=== PATIENT | male | born 1950 | race Caucasian/White ===

== ENCOUNTER 2020-07-31 14:15 | Outpatient (RCR) | payer MEDICARE, SELFPAY ==
[2020-05-12 11:20] VITALS: BP 130/80; PULSE 72
--- NOTE | 2020-05-12 17:55 | PT.OIE ---
Current Diagnoses Hemiplegia, unspecified affecting left nondominant side (05/12/20) Cerebral infarction due to unspecified occlusion or stenosis of right middle cerebral artery (05/12/20) Muscle weakness (generalized) (05/12/20) Abnormal posture (05/12/20) Visit Care Team Role Provider Type Lio Chacko Attending Provider Non-Staff Family Provider Primary Care Provider Referring Provider Specialty: Family Practice Address: [address] [place] [address], [facility] Email: Physical Therapy Initial Evaluation PT-OP-A Visit Information Start: 05/07/20 18:05 Freq: Status: Active Protocol: Document 05/12/20 11:20 LRN (Rec: 05/12/20 12:27 LRN [id number]) Out-Patient Physical Therapy Visit Information Visit Information Visit Type Initial Evaluation Visit Start Time 11:20 Visit Stop Time 12:16 Total Visit Minutes 56 Visit Number 1 Evaluation Information Evaluation Date 05/12/20 Precautions Precautions Possible subluxed L shoulder Recent carotid artery surgery CHF hx & Diabetes type II Arrhythmia of the heart. PT-OP-B Current Condition Start: 05/07/20 18:05 Freq: Status: Active Protocol: Document 05/12/20 11:20 LRN (Rec: 05/12/20 12:27 LRN [id number]) Current Condition History of Current Condition Onset Date 01/03/2020 History of Current Condition Pt had a surgery at [facility] ([place]) and after surgery plaque from the carotid artery broke loose causing a stroke in which he states he was totally paralyzed on the L side. He was in [facility] for 10 days and was moved to [facility] in [facility] for inpt rehab for 1 month, because his partner lives in [place]. During his stroke recovery he had rolled away from his L side, leaving the L arm behind and causing severe pain in the shoulder. Pt states he was told he subluxed the L shoulder. Now his only problem seems to be L shoulder pain, today rated 2/ 10. He is looking forward to doing outpt PT to relieve pain and strengthen up his shoulder. States at night the pain wakes him up and overall the pain is annoying and constant unless taking Tylenol , which helps to reduce his pain. He takes ASA daily and a blood thinner medication due to CHF and A Fib. Prior Treatments and Tests 1 month inpt rehab at [facility] in [place], and had a brief period of home health PT. Future Testing and Treatments Planned Cardioconversion planned in 1 month in [place]. Treatment Goals Patient/Caregiver Goals Pt goal is to strength his L shoulder, regain L arm function, and become painfree. Prior Functional Status Baseline Function- ADL's Independent Baseline Function- Mobility Independent Baseline Function- Gait Normal Baseline Function- Recreation/Hobbies Exercises and lifted free weights, walked for exercise. 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 Current Functional Impairments (Reported) Functional Limitations- ADL's Independent with ADLs. Sleeps on L side. Functional Limitations- Mobility/Gait Pt denies ambulatory dysfunction. He denies decreased balance. 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 Functional Limitations- Other Must put tops on reaching into arm holes rather than lifting arms overhead. He can only partly reach up with his L arm 1/2 way to shoulder hgt. Not able to lift, can help carry groceries. Unknown lifting limit. Personal Factors Other Personal Factors That May Effect Lives [place] with partner. Therapy/Recovery Recovering from carotid artery surgery with secondary post stroke. Diabetes type II controlled by Metformin. CHF, heart arrhythmia with planned cardioconversion in 1 month. PT-OP-C Subjective Start: 05/07/20 18:05 Freq: Status: Active Protocol: Document 05/12/20 11:20 LRN (Rec: 05/12/20 12:27 LRN [id number]) OP-PT Pain Assessment Location Around L shoulder joint Pain Location Details L shoulder Intensity 4 Scale Used Numeric (0 - 10) Description Aching,Shooting,With Movement Pain Aggravating Factors Changing Position,Exercise, Lifting Pain Alleviating Factors Cold,Heat,Medication Other Pain Alleviating Factors Tylenol taken this morning. Takes 4-6/day. Takes 2 tylenol before bed. PT-OP-H Neuro Start: 05/07/20 18:05 Freq: Status: Active Protocol: Document 05/12/20 11:20 LRN (Rec: 05/12/20 12:27 LRN [id number]) Sensation Evaluation Gross Sensation Gross Sensation WNL Vital Signs Pulse Resting Pulse at Rest (bpm) 72 Pulse Assessment Method Palpation Blood Pressure Sitting Blood Pressure (90/60-120/80 mmHg) 130/80 H Blood Pressure Source Manual Cuff,Right Upper Extremity PT-OP-J Posture/Palpation/Skin Start: 05/07/20 18:05 Freq: Status: Active Protocol: Document 05/12/20 11:20 LRN (Rec: 05/12/20 17:06 LRN [id number]) Posture Evaluation Position Standing Evaluation View All positions Head/C-Spine Posture Forward Head Shoulder Posture (L) Forward,(R) Forward Shoulder Subluxation Degree (L) < 1 Finger wide Shoulder Subluxation Position (L) Anterior Scapula Posture (L) Rotated Up Palpation Assessment Location L shoulder Palpation Location L shoulder Palpation Findings Tenderness PT-OP-K Range of Motion Start: 05/07/20 18:05 Freq: Status: Active Protocol: Document 05/12/20 11:20 LRN (Rec: 05/12/20 17:06 LRN [id number]) Cervical Spine Range of Motion Cervical Spine Active Degrees Testing Position Sitting Flexion 40 Extension 13 Rotation Left 25 Rotation Right 42 Shoulder Goniometric Range of Motion Shoulder Right Passive Shoulder ROM WFL Yes Flexion 155 Abduction 180 External Rotation at 45 degrees 85 Abduction Internal Rotation 40 Left Passive Shoulder ROM WFL No Flexion 77 Abduction 65 External Rotation at 45 degrees 20 Abduction Internal Rotation 22 Right Active Shoulder ROM WFL Yes Testing Position Sitting Flexion 145 Extension 48 Abduction 180 Left Active Shoulder ROM WFL No Testing Position Sitting Flexion 60 Extension 35 Abduction 45 PT-OP-M Strength Start: 05/07/20 18:05 Freq: Status: Active Protocol: Document 05/12/20 11:20 LRN (Rec: 05/12/20 17:06 LRN [id number]) Shoulder Strength Shoulder Manual Muscle Testing Right Comments Flex, AB, ER, IR strength is 5 /5. Left Flexion 2 Poor Extension 2+ Poor+ Abduction (C5) 2- Poor- External Rotation 2- Poor- Internal Rotation 2 Poor PT-OP-Q Treatments Start: 05/07/20 18:05 Freq: Status: Active Protocol: Document 05/12/20 11:20 LRN (Rec: 05/12/20 12:27 LRN [id number]) Self-Care/Home Management Treatment Education Patient Education Home Exercise Program Activities Self-Care/Home Management Activities I/S pt and had pt perform ex: active ER/IR stretch w/ instructions to hold 60 sec's. Extra time was taken to train pt in tolerable stretch for 60 secs. PT-OP-T Assessment and Plan Start: 05/07/20 18:05 Freq: Status: Active Protocol: Document 05/12/20 11:20 LRN (Rec: 05/12/20 12:27 LRN [id number]) Physical Therapy Assessment Rehab Potential Rehabilitation Potential Good Evaluation Complexity Number of Personal Factors/Comorbidities 1-2 Number of Body Systems Impaired 4 or More Clinical Presentation at Evaluation Evolving Impairments Impairments Functional Mobility,Pain,ROM, Soft Tissue Mobility,Strength, Transfers Goals Four Impairment L shoulder pain that is constant, rated 4/10 Short Term Goal (STG) Pt will be educated in methods to reduce his sleeping on his L shoulder, and will reduce the need for Tylenol on a daily basis. STG Duration 06/23/20 Retirement Goal (LTG) Decrease L shoulder pain to no greater than 1/10 with ability to sleep at night without the use of medications . LTG Duration 09/09/20 Three Impairment Decreased L shoulder strength Short Term Goal (STG) Pt will be able to report increased use of his L arm with tolerable discomfort. STG Duration 06/23/20 Retirement Goal (LTG) Improve L shoulder strength to no less than 4/5 with pt able to move around in bed without difficulty and mild pain that will not hinder his sleep. LTG Duration 09/09/20 One Impairment Lacks appropriate self care HEP Retirement Goal (LTG) Pt will be independent in a self care HEP for PF strengthening. LTG Duration 09/09/20 Two Impairment Decreased L shoulder mobility Short Term Goal (STG) Pt will be able to lift his arm to shoulder hgt to improve ability for dressing. STG Duration 06/23/20 Retirement Goal (LTG) Pt will be able to lift his L arm overhead for ease of putting his shirts on. LTG Duration 09/09/20 Assessment Summary Assessment Pt presents with L shoulder pain due to a mechanical and soft tissue dysfunction of the L Glenohumeral joint and Scapulothoracic joint. He has some visible Deltoid muscle tone, but has a subluxed humeral head 1 finger width. He has signs and symptoms of a L frozen shoulder with chronic pain diffusely in the L shoulder joint. Soft tissue tightness of his Upper Trapezius, Supraspinatus and Anterior Scalenes refers pain to the L shoulder. His BP was elevated at 130/80, but HR was normal at 72 bpm. It is expected that progress will be slow due to dysfunctions associated with his recent neck surgery and subluxed shoulder adding to the weakness from his stroke. The pt will benefit from skilled physical therapy to improve L shoulder mobility, strength and function as well as improve his scapular stabilizers and neck mobility. Physical Therapy Plan Frequency and Duration Frequency of Treatment 2x/Week Plan of Care Start Date 05/12/20 Plan of Care End Date 09/09/20 Therapeutic Interventions Therapeutic Interventions Home Exercise Program,Manual Therapy,Neuromuscular Re- education,Patient/Caregiver Education,Self-Care/Home Management,Soft Tissue Mobilization,Taping, Therapeutic Exercises Modalities Cold Pack/Ice Massage,Electric Stimulation Next Visit Focus/Plan Next Note Type Treatment Note Next Visit Plan Check Apley Test and DTRs. Monitor as needed, cardiovascular signs. Initiate L shoulder ROM & strengthening ex's with HEP issued, include scapular stabilizing ex's (shoulder retraction, depression). End with heat or ice unless pt chooses to do at home.
--- NOTE | 2020-05-12 17:56 | PT.OPPOC ---
Physical, Occupational & Speech Therapy At [facility] Current Diagnoses Hemiplegia, unspecified affecting left nondominant side (05/12/20) Cerebral infarction due to unspecified occlusion or stenosis of right middle cerebral artery (05/12/20) Muscle weakness (generalized) (05/12/20) Abnormal posture (05/12/20) Visit Care Team Role Provider Type Lio Chacko Attending Provider Non-Staff Family Provider Primary Care Provider Referring Provider Specialty: [facility] Address: [address] [place] [address] Email: Plan Of Care PT-OP-T Assessment and Plan Start: 05/07/20 18:05 Freq: Status: Active Protocol: Document 05/12/20 11:20 LRN (Rec: 05/12/20 12:27 LRN [id number]) Physical Therapy Assessment Rehab Potential Rehabilitation Potential Good Evaluation Complexity Number of Personal Factors/Comorbidities 1-2 Number of Body Systems Impaired 4 or More Clinical Presentation at Evaluation Evolving Impairments Impairments Functional Mobility,Pain,ROM, Soft Tissue Mobility,Strength, Transfers Goals Four Impairment L shoulder pain that is constant, rated 4/10 Short Term Goal (STG) Pt will be educated in methods to reduce his sleeping on his L shoulder, and will reduce the need for Tylenol on a daily basis. STG Duration 06/23/20 Senior Care Goal (LTG) Decrease L shoulder pain to no greater than 1/10 with ability to sleep at night without the use of medications . LTG Duration 09/09/20 Three Impairment Decreased L shoulder strength Short Term Goal (STG) Pt will be able to report increased use of his L arm with tolerable discomfort. STG Duration 06/23/20 Senior Care Goal (LTG) Improve L shoulder strength to no less than 4/5 with pt able to move around in bed without difficulty and mild pain that will not hinder his sleep. LTG Duration 09/09/20 One Impairment Lacks appropriate self care HEP Senior Care Goal (LTG) Pt will be independent in a self care HEP for PF strengthening. LTG Duration 09/09/20 Two Impairment Decreased L shoulder mobility Short Term Goal (STG) Pt will be able to lift his arm to shoulder hgt to improve ability for dressing. STG Duration 06/23/20 Associate Director Of Sales Goal (LTG) Pt will be able to lift his L arm overhead for ease of putting his shirts on. LTG Duration 09/09/20 Assessment Summary Assessment Pt presents with L shoulder pain due to a mechanical and soft tissue dysfunction of the L Glenohumeral joint and Scapulothoracic joint. He has some visible Deltoid muscle tone, but has a subluxed humeral head 1 finger width. He has signs and symptoms of a L frozen shoulder with chronic pain diffusely in the L shoulder joint. Soft tissue tightness of his Upper Trapezius, Supraspinatus and Anterior Scalenes refers pain to the L shoulder. His BP was elevated at 130/80, but HR was normal at 72 bpm. It is expected that progress will be slow due to dysfunctions associated with his recent neck surgery and subluxed shoulder adding to the weakness from his stroke. The pt will benefit from skilled physical therapy to improve L shoulder mobility, strength and function as well as improve his scapular stabilizers and neck mobility. Physical Therapy Plan Frequency and Duration Frequency of Treatment 2x/Week Plan of Care Start Date 05/12/20 Plan of Care End Date 09/09/20 Therapeutic Interventions Therapeutic Interventions Home Exercise Program,Manual Therapy,Neuromuscular Re- education,Patient/Caregiver Education,Self-Care/Home Management,Soft Tissue Mobilization,Taping, Therapeutic Exercises Modalities Cold Pack/Ice Massage,Electric Stimulation Next Visit Focus/Plan Next Note Type Treatment Note Next Visit Plan Check Apley Test and DTRs. Monitor as needed, cardiovascular signs. Initiate L shoulder ROM & strengthening ex's with HEP issued, include scapular stabilizing ex's (shoulder retraction, depression). End with heat or ice unless pt chooses to do at home. Plan of Care Dates Plan of Care Start Date 05/12/20 Plan of Care End Date 09/09/20 Electronically Signed by: Roberta Anne, PT 05/12/20 5033 Please Sign and Return: I have reviewed this Plan of Care and certify that the skilled therapy services above are required to meet the patient?s needs. Physician Signature Date Printed Name and Credentials Clinical Instructor Signature Printed Name and Credentials
--- NOTE | 2020-05-19 12:07 | PT.OTN ---
Current Diagnoses Hemiplegia, unspecified affecting left nondominant side (05/19/20) Cerebral infarction due to unspecified occlusion or stenosis of right middle cerebral artery (05/19/20) Muscle weakness (generalized) (05/19/20) Abnormal posture (05/19/20) Physical Therapy Treatment Note PT-OP-A Visit Information Start: 05/07/20 18:05 Freq: Status: Active Protocol: Document 05/19/20 10:34 LRN (Rec: 05/19/20 12:05 LRN [id number]) Out-Patient Physical Therapy Visit Information Visit Information Visit Type Treatment Note Visit Start Time 10:34 Visit Stop Time 11:24 Total Visit Minutes 50 Visit Number 2 Evaluation Information Evaluation Date 05/12/20 Precautions Precautions Possible subluxed L shoulder Recent carotid artery surgery CHF hx & Diabetes type II Arrhythmia of the heart. PT-OP-B Current Condition Start: 05/07/20 18:05 Freq: Status: Active Protocol: Document 05/12/20 11:20 LRN (Rec: 05/12/20 12:27 LRN [id number]) Current Condition History of Current Condition Onset Date 01/03/2020 History of Current Condition Pt had a surgery at [facility] ([place]) and after surgery plaque from the carotid artery broke loose causing a stroke in which he states he was totally paralyzed on the L side. He was in [facility] for 10 days and was moved to [facility] in [facility] for inpt rehab for 1 month, because his partner lives in [place]. During his stroke recovery he had rolled away from his L side, leaving the L arm behind and causing severe pain in the shoulder. Pt states he was told he subluxed the L shoulder. Now his only problem seems to be L shoulder pain, today rated 2/ 10. He is looking forward to doing outpt PT to relieve pain and strengthen up his shoulder. States at night the pain wakes him up and overall the pain is annoying and constant unless taking Tylenol , which helps to reduce his pain. He takes ASA daily and a blood thinner medication due to CHF and A Fib. Prior Treatments and Tests 1 month inpt rehab at [facility] in [place], and had a brief period of home health PT. Future Testing and Treatments Planned Cardioconversion planned in 1 month in [place]. Treatment Goals Patient/Caregiver Goals Pt goal is to strength his L shoulder, regain L arm function, and become painfree. Prior Functional Status Baseline Function- ADL's Independent Baseline Function- Mobility Independent Baseline Function- Gait Normal Baseline Function- Recreation/Hobbies Exercises and lifted free weights, walked for exercise. 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 Current Functional Impairments (Reported) Functional Limitations- ADL's Independent with ADLs. Sleeps on L side. Functional Limitations- Mobility/Gait Pt denies ambulatory dysfunction. He denies decreased balance. 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 Functional Limitations- Other Must put tops on reaching into arm holes rather than lifting arms overhead. He can only partly reach up with his L arm 1/2 way to shoulder hgt. Not able to lift, can help carry groceries. Unknown lifting limit. Personal Factors Other Personal Factors That May Effect Lives [place] with partner. Therapy/Recovery Recovering from carotid artery surgery with secondary post stroke. Diabetes type II controlled by Metformin. CHF, heart arrhythmia with planned cardioconversion in 1 month. PT-OP-C Subjective Start: 05/07/20 18:05 Freq: Status: Active Protocol: Document 05/19/20 10:34 LRN (Rec: 05/19/20 12:05 LRN [id number]) OP-PT Subjective Patient Comments Patient Comments Pt brings in his HEP of LE strengthening and balance exercises. States he would like to have them reviewed for appropriateness. PT-OP-E Functional Tests Start: 05/07/20 18:05 Freq: Status: Active Protocol: Document 05/19/20 10:34 LRN (Rec: 05/19/20 12:05 LRN [id number]) Functional Tests Apley's Scratch Test Action 2- Left Tip of finger to middle back of head Action 2- Right T2 Spinous process Action 3- Left Inferior Lateral Border of Sacrum Action 3- Right L1 Spinous process PT-OP-H Neuro Start: 05/07/20 18:05 Freq: Status: Active Protocol: Document 05/12/20 11:20 LRN (Rec: 05/12/20 12:27 LRN [id number]) Sensation Evaluation Gross Sensation Gross Sensation WNL Vital Signs Pulse Resting Pulse at Rest (bpm) 72 Pulse Assessment Method Palpation Blood Pressure Sitting Blood Pressure (90/60-120/80 mmHg) 130/80 H Blood Pressure Source Manual Cuff,Right Upper Extremity PT-OP-J Posture/Palpation/Skin Start: 05/07/20 18:05 Freq: Status: Active Protocol: Document 05/12/20 11:20 LRN (Rec: 05/12/20 17:06 LRN [id number]) Posture Evaluation Position Standing Evaluation View All positions Head/C-Spine Posture Forward Head Shoulder Posture (L) Forward,(R) Forward Shoulder Subluxation Degree (L) < 1 Finger wide Shoulder Subluxation Position (L) Anterior Scapula Posture (L) Rotated Up Palpation Assessment Location L shoulder Palpation Location L shoulder Palpation Findings Tenderness PT-OP-K Range of Motion Start: 05/07/20 18:05 Freq: Status: Active Protocol: Document 05/19/20 10:34 LRN (Rec: 05/19/20 12:05 LRN [id number]) Shoulder Goniometric Range of Motion Shoulder Right Passive Shoulder ROM WFL Yes Testing Position Supine Flexion 155 Abduction 180 External Rotation at 45 degrees 85 Abduction Internal Rotation 40 Left Passive Shoulder ROM WFL No Testing Position Supine Flexion 90 Abduction 70 External Rotation at 45 degrees 30 Abduction Internal Rotation 40 PT-OP-M Strength Start: 05/07/20 18:05 Freq: Status: Active Protocol: Document 05/12/20 11:20 LRN (Rec: 05/12/20 17:06 LRN [id number]) Shoulder Strength Shoulder Manual Muscle Testing Right Comments Flex, AB, ER, IR strength is 5 /5. Left Flexion 2 Poor Extension 2+ Poor+ Abduction (C5) 2- Poor- External Rotation 2- Poor- Internal Rotation 2 Poor PT-OP-Q Treatments Start: 05/07/20 18:05 Freq: Status: Active Protocol: Document 05/19/20 10:34 LRN (Rec: 05/19/20 12:05 LRN [id number]) Therapeutic Exercises Supine Exercises PROM L shoulder Supine Exercise Name PROM L shoulder Comments ROM measurements taken Shoulder AB Supine Exercise Name Shoulder AB Side left Reps/Minutes 5' Comments Phys and v. cuing with determining tolerable stretch position and hold time Yudi EXt Supine Exercise Name Yudi Ext. Side left Reps/Minutes 4' Comments Phys and v. cuing and teaching hold time Chest press Supine Exercise Name Chest press w/R arm assts Side left Reps/Minutes 4' Comments Had to determine movement speed and range tolerance Shoulder ER/IR Supine Exercise Name Windshield wipe arm at ~45 & 50 deg's Side left Reps/Minutes 5' Comments Had to determine ROM tolerance and trng for stretch/speed of mvmt. Scap pinches Supine Exercise Name Scap pinches Side bilateral Reps/Minutes 3' Comments Phys and v. cuing and teaching hold time and positioning Self-Care/Home Management Treatment Education Patient Education Home Exercise Program Other Education Reviewed pt's current HEP and discussed pt LE strengthening and balance program for future PT for balance. Activities Self-Care/Home Management Activities Issued & discussed/reviewed HEP: Supine: Chest press, windshield wip stretch, Shoulder AB w/cane, Scap pinches, Yudi shoulder Ext with elbow bent and elbow straight. Held itting ER and flex stretch. PT-OP-T Assessment and Plan Start: 05/07/20 18:05 Freq: Status: Active Protocol: Document 05/19/20 10:34 LRN (Rec: 05/19/20 12:05 LRN [id number]) Physical Therapy Assessment Goals Four Impairment L shoulder pain that is constant, rated 4/10 Short Term Goal (STG) Pt will be educated in methods to reduce his sleeping on his L shoulder, and will reduce the need for Tylenol on a daily basis. STG Duration 06/23/20 Alf Goal (LTG) Decrease L shoulder pain to no greater than 1/10 with ability to sleep at night without the use of medications . LTG Duration 09/09/20 Three Impairment Decreased L shoulder strength Short Term Goal (STG) Pt will be able to report increased use of his L arm with tolerable discomfort. STG Duration 06/23/20 Alf Goal (LTG) Improve L shoulder strength to no less than 4/5 with pt able to move around in bed without difficulty and mild pain that will not hinder his sleep. LTG Duration 09/09/20 One Impairment Lacks appropriate self care HEP Lens Mold Setter Goal (LTG) Pt will be independent in a self care HEP for PF strengthening. LTG Duration 09/09/20 Two Impairment Decreased L shoulder mobility Short Term Goal (STG) Pt will be able to lift his arm to shoulder hgt to improve ability for dressing. STG Duration 9/29/20 Lens Mold Setter Goal (LTG) Pt will be able to lift his L arm overhead for ease of putting his shirts on. LTG Duration 09/09/20 Progress Towards Goals Progress Comments Pt shoulder felt better after treatment. Pt's L shoulder PROM (in supine) has improved with in all areas 5-18 deg's (see ROM measurements) Assessment Summary Assessment Pt show improved L shoulder PROM. His shoulder is feeling better with ROM and strengthening ex's to lessen his frozen shoulder symptoms and decrease his pain from a subluxed shoulder. Physical Therapy Plan Frequency and Duration Frequency of Treatment 2x/Week Plan of Care Start Date 05/12/20 Plan of Care End Date 09/09/20 Next Visit Focus/Plan Next Note Type Treatment Note Next Visit Plan Check DTRs. Monitor as needed , cardiovascular signs (for elevated BP). Progress L shoulder ROM (add sitting shoulder flex/ER PROM) & strengthening ex's with HEP issued, include scapular stabilizing ex's (shoulder depression). End with heat or ice unless pt chooses to do at home.
--- NOTE | 2020-05-22 16:17 | PT.OTN ---
Current Diagnoses Hemiplegia, unspecified affecting left nondominant side (05/22/20) Cerebral infarction due to unspecified occlusion or stenosis of right middle cerebral artery (05/22/20) Muscle weakness (generalized) (05/22/20) Abnormal posture (05/22/20) Physical Therapy Treatment Note PT-OP-A Visit Information Start: 05/07/20 18:05 Freq: Status: Active Protocol: Document 05/22/20 13:37 LRN (Rec: 05/22/20 14:21 LRN [id number]) Out-Patient Physical Therapy Visit Information Visit Information Visit Type Treatment Note Visit Start Time 13:37 Visit Stop Time 14:17 Total Visit Minutes 40 Visit Number 3 Evaluation Information Evaluation Date 05/12/20 Precautions Precautions Possible subluxed L shoulder Recent carotid artery surgery CHF hx & Diabetes type II Arrhythmia of the heart. PT-OP-B Current Condition Start: 05/07/20 18:05 Freq: Status: Active Protocol: Document 05/12/20 11:20 LRN (Rec: 05/12/20 12:27 LRN [id number]) Current Condition History of Current Condition Onset Date 01/03/2020 History of Current Condition Pt had a surgery at [facility] ([place]) and after surgery plaque from the carotid artery broke loose causing a stroke in which he states he was totally paralyzed on the L side. He was in [facility] for 10 days and was moved to [facility] in [facility] for inpt rehab for 1 month, because his partner lives in [place]. During his stroke recovery he had rolled away from his L side, leaving the L arm behind and causing severe pain in the shoulder. Pt states he was told he subluxed the L shoulder. Now his only problem seems to be L shoulder pain, today rated 2/ 10. He is looking forward to doing outpt PT to relieve pain and strengthen up his shoulder. States at night the pain wakes him up and overall the pain is annoying and constant unless taking Tylenol , which helps to reduce his pain. He takes ASA daily and a blood thinner medication due to CHF and A Fib. Prior Treatments and Tests 1 month inpt rehab at [facility] in [place], and had a brief period of home health PT. Future Testing and Treatments Planned Cardioconversion planned in 1 month in [place]. Treatment Goals Patient/Caregiver Goals Pt goal is to strength his L shoulder, regain L arm function, and become painfree. Prior Functional Status Baseline Function- ADL's Independent Baseline Function- Mobility Independent Baseline Function- Gait Normal Baseline Function- Recreation/Hobbies Exercises and lifted free weights, walked for exercise. 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 Current Functional Impairments (Reported) Functional Limitations- ADL's Independent with ADLs. Sleeps on L side. Functional Limitations- Mobility/Gait Pt denies ambulatory dysfunction. He denies decreased balance. 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 Functional Limitations- Other Must put tops on reaching into arm holes rather than lifting arms overhead. He can only partly reach up with his L arm 1/2 way to shoulder hgt. Not able to lift, can help carry groceries. Unknown lifting limit. Personal Factors Other Personal Factors That May Effect Lives [place] with partner. Therapy/Recovery Recovering from carotid artery surgery with secondary post stroke. Diabetes type II controlled by Metformin. CHF, heart arrhythmia with planned cardioconversion in 1 month. PT-OP-C Subjective Start: 05/07/20 18:05 Freq: Status: Active Protocol: Document 05/22/20 13:37 LRN (Rec: 05/22/20 14:21 LRN [id number]) OP-PT Subjective Patient Comments Patient Comments Tired today. PT-OP-E Functional Tests Start: 05/07/20 18:05 Freq: Status: Active Protocol: Document 05/19/20 10:34 LRN (Rec: 05/19/20 12:05 LRN [id number]) Functional Tests Apley's Scratch Test Action 2- Left Tip of finger to middle back of head Action 2- Right T2 Spinous process Action 3- Left Inferior Lateral Border of Sacrum Action 3- Right L1 Spinous process PT-OP-H Neuro Start: 05/07/20 18:05 Freq: Status: Active Protocol: Document 05/12/20 11:20 LRN (Rec: 05/12/20 12:27 LRN [id number]) Sensation Evaluation Gross Sensation Gross Sensation WNL Vital Signs Pulse Resting Pulse at Rest (bpm) 72 Pulse Assessment Method Palpation Blood Pressure Sitting Blood Pressure (90/60-120/80 mmHg) 130/80 H Blood Pressure Source Manual Cuff,Right Upper Extremity PT-OP-J Posture/Palpation/Skin Start: 05/07/20 18:05 Freq: Status: Active Protocol: Document 05/12/20 11:20 LRN (Rec: 05/12/20 17:06 LRN [id number]) Posture Evaluation Position Standing Evaluation View All positions Head/C-Spine Posture Forward Head Shoulder Posture (L) Forward,(R) Forward Shoulder Subluxation Degree (L) < 1 Finger wide Shoulder Subluxation Position (L) Anterior Scapula Posture (L) Rotated Up Palpation Assessment Location L shoulder Palpation Location L shoulder Palpation Findings Tenderness PT-OP-K Range of Motion Start: 05/07/20 18:05 Freq: Status: Active Protocol: Document 05/22/20 13:37 LRN (Rec: 05/22/20 14:21 LRN [id number]) Shoulder Goniometric Range of Motion Shoulder Left Passive Shoulder ROM WFL No Testing Position Supine Flexion 108 Abduction 65 External Rotation at 45 degrees 40 Abduction Internal Rotation 38 PT-OP-M Strength Start: 05/07/20 18:05 Freq: Status: Active Protocol: Document 05/12/20 11:20 LRN (Rec: 05/12/20 17:06 LRN [id number]) Shoulder Strength Shoulder Manual Muscle Testing Right Comments Flex, AB, ER, IR strength is 5 /5. Left Flexion 2 Poor Extension 2+ Poor+ Abduction (C5) 2- Poor- External Rotation 2- Poor- Internal Rotation 2 Poor PT-OP-Q Treatments Start: 05/07/20 18:05 Freq: Status: Active Protocol: Document 05/22/20 13:37 LRN (Rec: 05/22/20 14:21 LRN [id number]) Cardio Equipment Upper Body Ergometer (UBE) Duration (Minutes) 6 RPM 90 Seat Position 12 Height 3 Other Pt needed phys assist to L wrist/hand for normalized movement Therapeutic Exercises Supine Exercises Shoulder IR Supine Exercise Name Shoulder IR stretch Side left Reps/Minutes 2' Comments ROM measured PROM L shoulder Supine Exercise Name PROM ER, flex w/cane Side left Comments ROM measured Shoulder AB Supine Exercise Name Shoulder AB Side left Reps/Minutes 5' Comments Phys and v. cuing with determining tolerable stretch position and hold time Chest press Supine Exercise Name Chest press w/R arm assts Side left Reps/Minutes 4' (10x 3) Comments No pain with ex Shoulder ER/IR Supine Exercise Name Burke wipe arm at ~45 & 50 deg's Side left Reps/Minutes 5' Comments Had to determine ROM tolerance & trng for stretch/speed of mvmt. ROM taken Scap pinches Supine Exercise Name Scap pinches/rolls Side bilateral Reps/Minutes 3' Comments Phys and v. cuing and teaching hold time and positioning Sidelying Exercises Jordan Sidelying Exercise Name ERROR Side left Sitting Exercises Jordan Sitting Exercise Name Assist L shoulder flex & AB Side left Comments Avoiding pushing into pain, making sure pt using L shdr ms to lift Self-Care/Home Management Treatment Education Patient Education Home Exercise Program Activities Self-Care/Home Management Activities Verbal review of home ex program. I/S pt to do strengthening ex as warm up, f /b stretching, for now. PT-OP-T Assessment and Plan Start: 05/07/20 18:05 Freq: Status: Active Protocol: Document 05/22/20 13:37 LRN (Rec: 05/22/20 14:21 LRN [id number]) Physical Therapy Assessment Goals Four Impairment L shoulder pain that is constant, rated 4/10 Short Term Goal (STG) Pt will be educated in methods to reduce his sleeping on his L shoulder, and will reduce the need for Tylenol on a daily basis. STG Duration 06/23/20 Mcc Goal (LTG) Decrease L shoulder pain to no greater than 1/10 with ability to sleep at night without the use of medications . LTG Duration 09/09/20 Three Impairment Decreased L shoulder strength Short Term Goal (STG) Pt will be able to report increased use of his L arm with tolerable discomfort. STG Duration 06/23/20 Automatic Machines Supervisor Goal (LTG) Improve L shoulder strength to no less than 4/5 with pt able to move around in bed without difficulty and mild pain that will not hinder his sleep. LTG Duration 09/09/20 One Impairment Lacks appropriate self care HEP [employer] Supervisor Goal (LTG) Pt will be independent in a self care HEP for PF strengthening. LTG Duration 09/09/20 Two Impairment Decreased L shoulder mobility Short Term Goal (STG) Pt will be able to lift his arm to shoulder hgt to improve ability for dressing. STG Duration 06/23/20 Automatic Mach[employer] Supervisor Goal (LTG) Pt will be able to lift his L arm overhead for ease of putting his shirts on. LTG Duration 09/09/20 Progress Towards Goals Progress Comments PROM: L shoulder flex improved from 90 to 108 deg's. ER (at 45 deg's AB) improved from 30 to 40 deg's. Shoulder AB & IR is mildly worse. Assessment Summary Assessment On UBE reverse direction is painfree at R shoulder, fwd is uncomfortable at the R shoulder, otherwise pt tolerated ex well. L shoulder PROM improved. Pt prefers doing cryotherapy at home. Physical Therapy Plan Frequency and Duration Frequency of Treatment 2x/Week Plan of Care Start Date 05/12/20 Plan of Care End Date 09/09/20 Next Visit Focus/Plan Next Note Type Treatment Note Next Visit Plan Check DTRs. Check BP before and after UBE. Monitor as needed cardiovascular signs ( for elevated BP). Progress L shoulder ROM (add sitting shoulder flex/ER PROM) & strengthening ex's with HEP issued, include scapular stabilizing ex's (shoulder depression). End with heat or ice as pt needs since pt prefers to do at home.
--- NOTE | 2020-05-25 16:20 | PT.OTN ---
Current Diagnoses Hemiplegia, unspecified affecting left nondominant side (05/25/20) Cerebral infarction due to unspecified occlusion or stenosis of right middle cerebral artery (05/25/20) Muscle weakness (generalized) (05/25/20) Abnormal posture (05/25/20) Physical Therapy Treatment Note PT-OP-A Visit Information Start: 05/07/20 18:05 Freq: Status: Active Protocol: Document 05/25/20 14:03 HH (Rec: 05/25/20 16:19 HH [id number]) Out-Patient Physical Therapy Visit Information Visit Information Visit Type Treatment Note Visit Note pt is 10 mins late Visit Start Time 13:55 Visit Stop Time 14:30 Total Visit Minutes 32 Visit Number 4 PT-OP-B Current Condition Start: 05/07/20 18:05 Freq: Status: Active Protocol: Document 05/12/20 11:20 LRN (Rec: 05/12/20 12:27 LRN [id number]) Current Condition History of Current Condition Onset Date 01/03/2020 History of Current Condition Pt had a surgery at [facility] ([place]) and after surgery plaque from the carotid artery broke loose causing a stroke in which he states he was totally paralyzed on the L side. He was in [facility] for 10 days and was moved to [facility] in [facility] for inpt rehab for 1 month, because his partner lives in [place]. During his stroke recovery he had rolled away from his L side, leaving the L arm behind and causing severe pain in the shoulder. Pt states he was told he subluxed the L shoulder. Now his only problem seems to be L shoulder pain, today rated 2/ 10. He is looking forward to doing outpt PT to relieve pain and strengthen up his shoulder. States at night the pain wakes him up and overall the pain is annoying and constant unless taking Tylenol , which helps to reduce his pain. He takes ASA daily and a blood thinner medication due to CHF and A Fib. Prior Treatments and Tests 1 month inpt rehab at [facility] in [place], and had a brief period of home health PT. Future Testing and Treatments Planned Cardioconversion planned in 1 month in [place]. Treatment Goals Patient/Caregiver Goals Pt goal is to strength his L shoulder, regain L arm function, and become painfree. Prior Functional Status Baseline Function- ADL's Independent Baseline Function- Mobility Independent Baseline Function- Gait Normal Baseline Function- Recreation/Hobbies Exercises and lifted free weights, walked for exercise. 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 Current Functional Impairments (Reported) Functional Limitations- ADL's Independent with ADLs. Sleeps on L side. Functional Limitations- Mobility/Gait Pt denies ambulatory dysfunction. He denies decreased balance. 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 Functional Limitations- Other Must put tops on reaching into arm holes rather than lifting arms overhead. He can only partly reach up with his L arm 1/2 way to shoulder hgt. Not able to lift, can help carry groceries. Unknown lifting limit. Personal Factors Other Personal Factors That May Effect Lives [place] with partner. Therapy/Recovery Recovering from carotid artery surgery with secondary post stroke. Diabetes type II controlled by Metformin. CHF, heart arrhythmia with planned cardioconversion in 1 month. PT-OP-C Subjective Start: 05/07/20 18:05 Freq: Status: Active Protocol: Document 05/25/20 14:03 HH (Rec: 05/25/20 16:19 [id number]) OP-PT Subjective Patient Comments Patient Comments Im getting better and i was able to wash my hair this morning. Just able to move in general. But my shoulder got really sore after last visit for a day or two. Patient Reported Progress Improving PT-OP-E Functional Tests Start: 05/07/20 18:05 Freq: Status: Active Protocol: Document 05/19/20 10:34 LRN (Rec: 05/19/20 12:05 LRN [id number]) Functional Tests Apley's Scratch Test Action 2- Left Tip of finger to middle back of head Action 2- Right T2 Spinous process Action 3- Left Inferior Lateral Border of Sacrum Action 3- Right L1 Spinous process PT-OP-H Neuro Start: 05/07/20 18:05 Freq: Status: Active Protocol: Document 05/12/20 11:20 LRN (Rec: 05/12/20 12:27 LRN [id number]) Sensation Evaluation Gross Sensation Gross Sensation WNL Vital Signs Pulse Resting Pulse at Rest (bpm) 72 Pulse Assessment Method Palpation Blood Pressure Sitting Blood Pressure (90/60-120/80 mmHg) 130/80 H Blood Pressure Source Manual Cuff,Right Upper Extremity PT-OP-J Posture/Palpation/Skin Start: 05/07/20 18:05 Freq: Status: Active Protocol: Document 05/12/20 11:20 LRN (Rec: 05/12/20 17:06 LRN [id number]) Posture Evaluation Position Standing Evaluation View All positions Head/C-Spine Posture Forward Head Shoulder Posture (L) Forward,(R) Forward Shoulder Subluxation Degree (L) < 1 Finger wide Shoulder Subluxation Position (L) Anterior Scapula Posture (L) Rotated Up Palpation Assessment Location L shoulder Palpation Location L shoulder Palpation Findings Tenderness PT-OP-K Range of Motion Start: 05/07/20 18:05 Freq: Status: Active Protocol: Document 05/22/20 13:37 LRN (Rec: 05/22/20 14:21 LRN [id number]) Shoulder Goniometric Range of Motion Shoulder Left Passive Shoulder ROM WFL No Testing Position Supine Flexion 108 Abduction 65 External Rotation at 45 degrees 40 Abduction Internal Rotation 38 PT-OP-M Strength Start: 05/07/20 18:05 Freq: Status: Active Protocol: Document 05/12/20 11:20 LRN (Rec: 05/12/20 17:06 LRN [id number]) Shoulder Strength Shoulder Manual Muscle Testing Right Comments Flex, AB, ER, IR strength is 5 /5. Left Flexion 2 Poor Extension 2+ Poor+ Abduction (C5) 2- Poor- External Rotation 2- Poor- Internal Rotation 2 Poor PT-OP-Q Treatments Start: 05/07/20 18:05 Freq: Status: Active Protocol: Document 05/25/20 14:03 HH (Rec: 05/25/20 16:19 HH [id number]) Cardio Equipment Upper Body Ergometer (UBE) Duration (Minutes) 6 RPM 90 Seat Position 12 Height 3 Other Pt needed phys assist to L wrist/hand for normalized movement Therapeutic Exercises Sidelying Exercises Jordan Sidelying Exercise Name flexion, abduction AAROM Side left Comments pain with flexion ~80 degrees, abd with 50-60 degrees Manual Therapy Treatment Soft Tissue Mobilization pecs Mobilization Type Sustained Pressure,Trigger Point Release Intensity/Depth Moderate Body Position Supine Comments high muscle tone noted upper trap Mobilization Type Sustained Pressure,Trigger Point Release Intensity/Depth Moderate Body Position Supine Joint Mobilizations posterior glide Joint abd at 80 degrees Direction PA Grade II Body Position Supine Reps/Duration 8 mins Comments with axial pressure at the same time, pt felt improved GH stability and congruency. He was able to achieve 8x degrees with minimal pain passively. PT-OP-T Assessment and Plan Start: 05/07/20 18:05 Freq: Status: Active Protocol: Document 05/25/20 14:03 HH (Rec: 05/25/20 16:19 HH [id number]) Physical Therapy Assessment Goals Four Impairment L shoulder pain that is constant, rated 4/10 Short Term Goal (STG) Pt will be educated in methods to reduce his sleeping on his L shoulder, and will reduce the need for Tylenol on a daily basis. STG Duration 06/23/20 Director Mobile Goal (LTG) Decrease L shoulder pain to no greater than 1/10 with ability to sleep at night without the use of medications . LTG Duration 09/09/20 Three Impairment Decreased L shoulder strength Short Term Goal (STG) Pt will be able to report increased use of his L arm with tolerable discomfort. STG Duration 06/23/20 Director Mobile Goal (LTG) Improve L shoulder strength to no less than 4/5 with pt able to move around in bed without difficulty and mild pain that will not hinder his sleep. LTG Duration 09/09/20 One Impairment Lacks appropriate self care HEP Director Mobile Goal (LTG) Pt will be independent in a self care HEP for PF strengthening. LTG Duration 09/09/20 Two Impairment Decreased L shoulder mobility Short Term Goal (STG) Pt will be able to lift his arm to shoulder hgt to improve ability for dressing. STG Duration 06/23/20 Director Mobile Goal (LTG) Pt will be able to lift his L arm overhead for ease of putting his shirts on. LTG Duration 09/09/20 Assessment Summary Assessment Pt is progressive well. Stated he was able to wash his hair earlier this morning. Tx session focused on manual therapy and his passive and active ROM improved after posterior GH glide with axial pressure. Pt stated My shoulder feels more secure and stable Physical Therapy Plan Next Visit Focus/Plan Next Note Type Treatment Note Next Visit Plan Check DTRs. Check BP before and after UBE. check post session response Monitor as needed cardiovascular signs (for elevated BP). Progress L shoulder ROM (add sitting shoulder flex/ER PROM) & strengthening ex's with HEP issued, include scapular stabilizing ex's (shoulder depression). End with heat or ice as pt needs since pt prefers to do at home.
--- NOTE | 2020-06-16 16:14 | PT.OTN ---
Current Diagnoses Hemiplegia, unspecified affecting left nondominant side (06/16/20) Cerebral infarction due to unspecified occlusion or stenosis of right middle cerebral artery (06/16/20) Muscle weakness (generalized) (06/16/20) Abnormal posture (06/16/20) Physical Therapy Treatment Note PT-OP-A Visit Information Start: 05/07/20 18:05 Freq: Status: Active Protocol: Document 06/16/20 10:34 LRN (Rec: 06/16/20 11:23 LRN [id number]) Out-Patient Physical Therapy Visit Information Visit Information Visit Type Treatment Note Visit Start Time 10:34 Visit Stop Time 11:21 Total Visit Minutes 47 Visit Number 5 Evaluation Information Evaluation Date 05/12/20 Precautions Precautions Possible subluxed L shoulder Recent carotid artery surgery CHF hx & Diabetes type II Arrhythmia of the heart. PT-OP-B Current Condition Start: 05/07/20 18:05 Freq: Status: Active Protocol: Document 05/12/20 11:20 LRN (Rec: 05/12/20 12:27 LRN [id number]) Current Condition History of Current Condition Onset Date 01/03/2020 History of Current Condition Pt had a surgery at [facility] ([place]) and after surgery plaque from the carotid artery broke loose causing a stroke in which he states he was totally paralyzed on the L side. He was in [facility] for 10 days and was moved to [facility] in [facility] for inpt rehab for 1 month, because his partner lives in [place]. During his stroke recovery he had rolled away from his L side, leaving the L arm behind and causing severe pain in the shoulder. Pt states he was told he subluxed the L shoulder. Now his only problem seems to be L shoulder pain, today rated 2/ 10. He is looking forward to doing outpt PT to relieve pain and strengthen up his shoulder. States at night the pain wakes him up and overall the pain is annoying and constant unless taking Tylenol , which helps to reduce his pain. He takes ASA daily and a blood thinner medication due to CHF and A Fib. Prior Treatments and Tests 1 month inpt rehab at [facility] in [place], and had a brief period of home health PT. Future Testing and Treatments Planned Cardioconversion planned in 1 month in [place]. Treatment Goals Patient/Caregiver Goals Pt goal is to strength his L shoulder, regain L arm function, and become painfree. Prior Functional Status Baseline Function- ADL's Independent Baseline Function- Mobility Independent Baseline Function- Gait Normal Baseline Function- Recreation/Hobbies Exercises and lifted free weights, walked for exercise. 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 Current Functional Impairments (Reported) Functional Limitations- ADL's Independent with ADLs. Sleeps on L side. Functional Limitations- Mobility/Gait Pt denies ambulatory dysfunction. He denies decreased balance. 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 Functional Limitations- Other Must put tops on reaching into arm holes rather than lifting arms overhead. He can only partly reach up with his L arm 1/2 way to shoulder hgt. Not able to lift, can help carry groceries. Unknown lifting limit. Personal Factors Other Personal Factors That May Effect Lives [place] with partner. Therapy/Recovery Recovering from carotid artery surgery with secondary post stroke. Diabetes type II controlled by Metformin. CHF, heart arrhythmia with planned cardioconversion in 1 month. PT-OP-C Subjective Start: 05/07/20 18:05 Freq: Status: Active Protocol: Document 06/16/20 10:34 LRN (Rec: 06/16/20 11:23 LRN [id number]) OP-PT Subjective Patient Comments Patient Comments Using the L arm more and more. Bought an overhead gabriele system and hanged it on the door. Don't have the pain it used to have because getting stronger. Cardioverted a week and 1/2 ago. Will check up with documentation writer in 1-2 weeks . Able to use the L arm with most things. Uses the L hand to carry light gorceries, rubs dogs belly with L hand. Pt goal is to put loop of mask on L with L. Uses L hand to move the pegs and hold cards for cribbage. Puts shoes on to hold shoe to get foot in and uses shoehorn with L hand. Cooking moves pot with L hand. Uses L hand to tip a pot to drain fluids in a pot. Uses both hands to product picker gardening trims and put in garbage. Uses L hand to open mailbox. Uses L arm to open lid to trash and recycle bin. Haven't had pain meds in 2 weeks. PT-OP-E Functional Tests Start: 05/07/20 18:05 Freq: Status: Active Protocol: Document 06/16/20 10:34 LRN (Rec: 06/16/20 11:23 LRN [id number]) Functional Tests Apley's Scratch Test Action 2- Left T2 Action 2- Right T4 Action 3- Left Lateral buttock Action 3- Right T12 PT-OP-H Neuro Start: 05/07/20 18:05 Freq: Status: Active Protocol: Document 05/12/20 11:20 LRN (Rec: 05/12/20 12:27 LRN [id number]) Sensation Evaluation Gross Sensation Gross Sensation WNL Vital Signs Pulse Resting Pulse at Rest (bpm) 72 Pulse Assessment Method Palpation Blood Pressure Sitting Blood Pressure (90/60-120/80 mmHg) 130/80 H Blood Pressure Source Manual Cuff,Right Upper Extremity PT-OP-J Posture/Palpation/Skin Start: 05/07/20 18:05 Freq: Status: Active Protocol: Document 05/12/20 11:20 LRN (Rec: 05/12/20 17:06 LRN [id number]) Posture Evaluation Position Standing Evaluation View All positions Head/C-Spine Posture Forward Head Shoulder Posture (L) Forward,(R) Forward Shoulder Subluxation Degree (L) < 1 Finger wide Shoulder Subluxation Position (L) Anterior Scapula Posture (L) Rotated Up Palpation Assessment Location L shoulder Palpation Location L shoulder Palpation Findings Tenderness PT-OP-K Range of Motion Start: 05/07/20 18:05 Freq: Status: Active Protocol: Document 06/16/20 10:34 LRN (Rec: 06/16/20 11:23 LRN [id number]) Shoulder Goniometric Range of Motion Shoulder Right Passive Shoulder ROM WFL Yes Testing Position Supine Flexion 152 Abduction 180 External Rotation at 45 degrees 85 Abduction Internal Rotation 50 Left Passive Shoulder ROM WFL No Testing Position Supine Flexion 132 Abduction 83 External Rotation at 90 degrees 25 Abduction External Rotation at 45 degrees 36 Abduction Internal Rotation 18 Right Active Testing Position Sitting Flexion 150 Extension 52 Abduction 180 Horizontal Adduction 27 Left Active Testing Position Sitting Flexion 80 Extension 43 Abduction 70 Horizontal Adduction 0 PT-OP-M Strength Start: 05/07/20 18:05 Freq: Status: Active Protocol: Document 05/12/20 11:20 LRN (Rec: 05/12/20 17:06 LRN [id number]) Shoulder Strength Shoulder Manual Muscle Testing Right Comments Flex, AB, ER, IR strength is 5 /5. Left Flexion 2 Poor Extension 2+ Poor+ Abduction (C5) 2- Poor- External Rotation 2- Poor- Internal Rotation 2 Poor PT-OP-Q Treatments Start: 05/07/20 18:05 Freq: Status: Active Protocol: Document 06/16/20 10:34 LRN (Rec: 06/16/20 11:23 LRN [id number]) Cardio Equipment Upper Body Ergometer (UBE) Duration (Minutes) 7 RPM 90 Seat Position 12 Height 3 Other Pt needed phys assist to L wrist/hand for normalized movement Therapeutic Exercises Supine Exercises Shoulder IR Supine Exercise Name Shoulder IR stretch Side left Reps/Minutes 5' Comments ROM measured PROM L shoulder Supine Exercise Name PROM ER, flex w/cane Side left Reps/Minutes 7' Comments ROM measured Shoulder AB Supine Exercise Name Shoulder AB Side left Reps/Minutes 5' Comments Phys and v. cuing with determining tolerable stretch position and hold time Sitting Exercises SHoulder IR stretch Sitting Exercise Name Reaching behind back Side left Reps/Minutes 4' Comments ROM taken Shoulder ER stretch Sitting Exercise Name Reaching behind head Side left Reps/Minutes 4' Comments ROM taken Horiz AD stretch Sitting Exercise Name Horiz AD stretch Side left Reps/Minutes 2' Gabriele Sitting Exercise Name Assist L shoulder flex & AB Side left Reps/Minutes 11' Comments Cuing to make sure pt using L shdr ms to lift. ROM taken PT-OP-T Assessment and Plan Start: 05/07/20 18:05 Freq: Status: Active Protocol: Document 06/16/20 10:34 LRN (Rec: 06/16/20 11:23 LRN [id number]) Physical Therapy Assessment Goals Four Impairment L shoulder pain that is constant, rated 4/10 Short Term Goal (STG) Pt will be educated in methods to reduce his sleeping on his L shoulder, and will reduce the need for Tylenol on a daily basis. STG Duration 09/09/20 (06/23/20: MET GOAL) Penitentiary Goal (LTG) Decrease L shoulder pain to no greater than 1/10 with ability to sleep at night without the use of medications . (06/16/20: Using sleep med to help shut the brain off (uses 1/2), not because of pain. LTG Duration 09/09/20 (06/23/20: MET GOAL) Three Impairment Decreased L shoulder strength Short Term Goal (STG) Pt will be able to report increased use of his L arm with tolerable discomfort. STG Duration 06/23/20 (06/16/20: MET GOAL) Senior Policy Advisor Goal (LTG) Improve L shoulder strength to no less than 4/5 with pt able to move around in bed without difficulty and mild pain that will not hinder his sleep. LTG Duration 09/09/20 (06/16/20 MET GOAL) One Impairment Lacks appropriate self care HEP Penitentiary Goal (LTG) Pt will be independent in a self care HEP for PF strengthening. LTG Duration 09/09/20 Two Impairment Decreased L shoulder mobility Short Term Goal (STG) Pt will be able to lift his arm to shoulder hgt to improve ability for dressing. STG Duration 06/23/20 Penitentiary Goal (LTG) Pt will be able to lift his L arm overhead for ease of putting his shirts on. LTG Duration 09/09/20 Progress Towards Goals Progress Comments Much improved L shoulder AROM & PROM and improved functional strength. Goals 3 & 4 MET. Assessment Summary Assessment Pt L shoulder ROM has shown good improvement. He is most limited with L shoulder ER/IR and has fair tolerance to stretching. Physical Therapy Plan Frequency and Duration Frequency of Treatment 2x/Week Plan of Care Start Date 05/12/20 Plan of Care End Date 09/09/20 Next Visit Focus/Plan Next Note Type Treatment Note Next Visit Plan Check DTRs. Pt cardioconverted ; therefore not necessary to check BP before and after UBE, but pt should ex no greater than somewhat hard BEAUCHAMP level. Recommend cardiac rehab. check post session response Monitor as needed cardiovascular signs (for elevated BP). Progress L shoulder ROM (add sitting shoulder flex/ER PROM) & strengthening ex's with HEP issued, include scapular stabilizing ex's (shoulder depression). End with heat or ice as pt needs since pt prefers to do at home.
[2020-06-19 12:52] VITALS: BP 115/67; PULSE 86
--- NOTE | 2020-06-19 13:48 | PT.OTN ---
Current Diagnoses Hemiplegia, unspecified affecting left nondominant side (06/19/20) Cerebral infarction due to unspecified occlusion or stenosis of right middle cerebral artery (06/19/20) Muscle weakness (generalized) (06/19/20) Abnormal posture (06/19/20) Physical Therapy Treatment Note PT-OP-A Visit Information Start: 05/07/20 18:05 Freq: Status: Active Protocol: Document 06/19/20 12:52 LRN (Rec: 06/19/20 13:34 LRN [id number]) Out-Patient Physical Therapy Visit Information Visit Information Visit Type Treatment Note Visit Start Time 12:52 Visit Stop Time 13:40 Total Visit Minutes 48 Visit Number 6 Evaluation Information Evaluation Date 05/12/20 Precautions Precautions Possible subluxed L shoulder Recent carotid artery surgery CHF hx & Diabetes type II Arrhythmia of the heart. PT-OP-B Current Condition Start: 05/07/20 18:05 Freq: Status: Active Protocol: Document 05/12/20 11:20 LRN (Rec: 05/12/20 12:27 LRN [id number]) Current Condition History of Current Condition Onset Date 01/03/2020 History of Current Condition Pt had a surgery at [facility] ([place]) and after surgery plaque from the carotid artery broke loose causing a stroke in which he states he was totally paralyzed on the L side. He was in [facility] for 10 days and was moved to [facility] in [facility] for inpt rehab for 1 month, because his partner lives in [place]. During his stroke recovery he had rolled away from his L side, leaving the L arm behind and causing severe pain in the shoulder. Pt states he was told he subluxed the L shoulder. Now his only problem seems to be L shoulder pain, today rated 2/ 10. He is looking forward to doing outpt PT to relieve pain and strengthen up his shoulder. States at night the pain wakes him up and overall the pain is annoying and constant unless taking Tylenol , which helps to reduce his pain. He takes ASA daily and a blood thinner medication due to CHF and A Fib. Prior Treatments and Tests 1 month inpt rehab at [facility] in [place], and had a brief period of home health PT. Future Testing and Treatments Planned Cardioconversion planned in 1 month in [place]. Treatment Goals Patient/Caregiver Goals Pt goal is to strength his L shoulder, regain L arm function, and become painfree. Prior Functional Status Baseline Function- ADL's Independent Baseline Function- Mobility Independent Baseline Function- Gait Normal Baseline Function- Recreation/Hobbies Exercises and lifted free weights, walked for exercise. 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 Current Functional Impairments (Reported) Functional Limitations- ADL's Independent with ADLs. Sleeps on L side. Functional Limitations- Mobility/Gait Pt denies ambulatory dysfunction. He denies decreased balance. 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 Functional Limitations- Other Must put tops on reaching into arm holes rather than lifting arms overhead. He can only partly reach up with his L arm 1/2 way to shoulder hgt. Not able to lift, can help carry groceries. Unknown lifting limit. Personal Factors Other Personal Factors That May Effect Lives [place] with partner. Therapy/Recovery Recovering from carotid artery surgery with secondary post stroke. Diabetes type II controlled by Metformin. CHF, heart arrhythmia with planned cardioconversion in 1 month. PT-OP-C Subjective Start: 05/07/20 18:05 Freq: Status: Active Protocol: Document 06/19/20 12:52 LRN (Rec: 06/19/20 13:34 LRN [id number]) OP-PT Subjective Patient Comments Patient Comments No change. PT-OP-E Functional Tests Start: 05/07/20 18:05 Freq: Status: Active Protocol: Document 06/16/20 10:34 LRN (Rec: 06/16/20 11:23 LRN [id number]) Functional Tests Apley's Scratch Test Action 2- Left T2 Action 2- Right T4 Action 3- Left Lateral buttock Action 3- Right T12 PT-OP-H Neuro Start: 05/07/20 18:05 Freq: Status: Active Protocol: Document 05/12/20 11:20 LRN (Rec: 05/12/20 12:27 LRN [id number]) Sensation Evaluation Gross Sensation Gross Sensation WNL Vital Signs Pulse Resting Pulse at Rest (bpm) 72 Pulse Assessment Method Palpation Blood Pressure Sitting Blood Pressure (90/60-120/80 mmHg) 130/80 H Blood Pressure Source Manual Cuff,Right Upper Extremity PT-OP-J Posture/Palpation/Skin Start: 05/07/20 18:05 Freq: Status: Active Protocol: Document 05/12/20 11:20 LRN (Rec: 05/12/20 17:06 LRN [id number]) Posture Evaluation Position Standing Evaluation View All positions Head/C-Spine Posture Forward Head Shoulder Posture (L) Forward,(R) Forward Shoulder Subluxation Degree (L) < 1 Finger wide Shoulder Subluxation Position (L) Anterior Scapula Posture (L) Rotated Up Palpation Assessment Location L shoulder Palpation Location L shoulder Palpation Findings Tenderness PT-OP-K Range of Motion Start: 05/07/20 18:05 Freq: Status: Active Protocol: Document 06/16/20 10:34 LRN (Rec: 06/16/20 11:23 LRN [id number]) Shoulder Goniometric Range of Motion Shoulder Right Passive Shoulder ROM WFL Yes Testing Position Supine Flexion 152 Abduction 180 External Rotation at 45 degrees 85 Abduction Internal Rotation 50 Left Passive Shoulder ROM WFL No Testing Position Supine Flexion 132 Abduction 83 External Rotation at 90 degrees 25 Abduction External Rotation at 45 degrees 36 Abduction Internal Rotation 18 Right Active Testing Position Sitting Flexion 150 Extension 52 Abduction 180 Horizontal Adduction 27 Left Active Testing Position Sitting Flexion 80 Extension 43 Abduction 70 Horizontal Adduction 0 PT-OP-M Strength Start: 05/07/20 18:05 Freq: Status: Active Protocol: Document 05/12/20 11:20 LRN (Rec: 05/12/20 17:06 LRN [id number]) Shoulder Strength Shoulder Manual Muscle Testing Right Comments Flex, AB, ER, IR strength is 5 /5. Left Flexion 2 Poor Extension 2+ Poor+ Abduction (C5) 2- Poor- External Rotation 2- Poor- Internal Rotation 2 Poor PT-OP-Q Treatments Start: 05/07/20 18:05 Freq: Status: Active Protocol: Document 06/19/20 12:52 LRN (Rec: 06/19/20 13:34 LRN [id number]) Cardio Equipment Upper Body Ergometer (UBE) Duration (Minutes) 8 RPM 90 Seat Position 12 Height 3 Other Pt needed phys assist to L wrist/hand for normalized movement Therapeutic Exercises Supine Exercises Shoulder IR Supine Exercise Name Shoulder IR stretch Side left Reps/Minutes 5' Comments Used R arm to teach pt L arm placement PROM L shoulder Supine Exercise Name PROM Flex,ER, IR Side left Reps/Minutes 10' Comments Stabilized joint with hand Shoulder AB Supine Exercise Name Assisted Shoulder AB Side left Reps/Minutes 5' Comments Phys and v. cuing with determining tolerable stretch position and hold time Chest press Supine Exercise Name Chest press Plus (extra shove) Side bilateral Reps/Minutes 5' Comments Assist to L Scap needed to start Sidelying Exercises Shoulder AB Sidelying Exercise Name Shoulder AB w/elbow flexed Side left Reps/Minutes 15x Comments Manual assist needed to guide Elbow towards ceiling Shoulder IR Sidelying Exercise Name Shoulder IR Side left Resistance 1#, 0# Reps/Minutes 15x each Shoulder ER Sidelying Exercise Name Shoulder ER Side left Reps/Minutes 30x Comments Pt able to lift to 0 deg' ER position Sitting Exercises Jordan Sitting Exercise Name Shoulder Flex Side left Reps/Minutes 3' PT-OP-T Assessment and Plan Start: 05/07/20 18:05 Freq: Status: Active Protocol: Document 06/19/20 12:52 LRN (Rec: 06/19/20 13:34 LRN [id number]) Physical Therapy Assessment Goals Four Impairment L shoulder pain that is constant, rated 4/10 Short Term Goal (STG) Pt will be educated in methods to reduce his sleeping on his L shoulder, and will reduce the need for Tylenol on a daily basis. STG Duration 09/09/20 (06/23/20: MET GOAL) Longterm Goal (LTG) Decrease L shoulder pain to no greater than 1/10 with ability to sleep at night without the use of medications . (06/16/20: Using sleep med to help shut the brain off (uses 1/2), not because of pain. LTG Duration 09/09/20 (06/23/20: MET GOAL) Three Impairment Decreased L shoulder strength Short Term Goal (STG) Pt will be able to report increased use of his L arm with tolerable discomfort. STG Duration 06/23/20 (06/16/20: MET GOAL) Longterm Goal (LTG) Improve L shoulder strength to no less than 4/5 with pt able to move around in bed without difficulty and mild pain that will not hinder his sleep. LTG Duration 09/09/20 (06/16/20 MET GOAL) One Impairment Lacks appropriate self care HEP Longterm Goal (LTG) Pt will be independent in a self care HEP for PF strengthening. LTG Duration 09/09/20 Two Impairment Decreased L shoulder mobility Short Term Goal (STG) Pt will be able to lift his arm to shoulder hgt to improve ability for dressing. STG Duration 06/23/20 Knockdown Man Goal (LTG) Pt will be able to lift his L arm overhead for ease of putting his shirts on. LTG Duration 09/09/20 Assessment Summary Assessment Pt L GHJ pain stiffness due to L shoulder possible subluxation history. Pt very limited with L shoulder flex, ER, IR. Very weak scapular stabilizers. Physical Therapy Plan Frequency and Duration Frequency of Treatment 2x/Week Plan of Care Start Date 05/12/20 Plan of Care End Date 09/09/20 Next Visit Focus/Plan Next Note Type Treatment Note Next Visit Plan Check DTRs. Pt cardioconverted ; therefore not necessary to check BP before and after UBE, but pt should ex no greater than somewhat hard BE[place]CHAMP level. Recommend cardiac rehab. Monitor if pt in distress, post session response. Monitor as needed cardiovascular signs (for elevated BP). Progress L shoulder ROM (add sitting table ex of shoulder flex/ER PROM) & strengthening ex's with HEP issued, include scapular stabilizing ex's ( shoulder depression). End with heat or ice as pt needs since pt prefers to do at home .
--- NOTE | 2020-06-19 13:54 | PT.OTN ---
Current Diagnoses Hemiplegia, unspecified affecting left nondominant side (06/19/20) Cerebral infarction due to unspecified occlusion or stenosis of right middle cerebral artery (06/19/20) Muscle weakness (generalized) (06/19/20) Abnormal posture (06/19/20) Physical Therapy Treatment Note PT-OP-A Visit Information Start: 05/07/20 18:05 Freq: Status: Active Protocol: Document 06/19/20 12:52 LRN (Rec: 06/19/20 13:34 LRN [id number]) Out-Patient Physical Therapy Visit Information Visit Information Visit Type Treatment Note Visit Start Time 12:52 Visit Stop Time 13:40 Total Visit Minutes 48 Visit Number 6 Evaluation Information Evaluation Date 05/12/20 Precautions Precautions Possible subluxed L shoulder Recent carotid artery surgery CHF hx & Diabetes type II Arrhythmia of the heart. PT-OP-B Current Condition Start: 05/07/20 18:05 Freq: Status: Active Protocol: Document 05/12/20 11:20 LRN (Rec: 05/12/20 12:27 LRN [id number]) Current Condition History of Current Condition Onset Date 01/03/2020 History of Current Condition Pt had a surgery at [facility] ([place]) and after surgery plaque from the carotid artery broke loose causing a stroke in which he states he was totally paralyzed on the L side. He was in [facility] for 10 days and was moved to [facility] in [facility] for inpt rehab for 1 month, because his partner lives in [place]. During his stroke recovery he had rolled away from his L side, leaving the L arm behind and causing severe pain in the shoulder. Pt states he was told he subluxed the L shoulder. Now his only problem seems to be L shoulder pain, today rated 2/ 10. He is looking forward to doing outpt PT to relieve pain and strengthen up his shoulder. States at night the pain wakes him up and overall the pain is annoying and constant unless taking Tylenol , which helps to reduce his pain. He takes ASA daily and a blood thinner medication due to CHF and A Fib. Prior Treatments and Tests 1 month inpt rehab at [facility] in [place], and had a brief period of home health PT. Future Testing and Treatments Planned Cardioconversion planned in 1 month in [place]. Treatment Goals Patient/Caregiver Goals Pt goal is to strength his L shoulder, regain L arm function, and become painfree. Prior Functional Status Baseline Function- ADL's Independent Baseline Function- Mobility Independent Baseline Function- Gait Normal Baseline Function- Recreation/Hobbies Exercises and lifted free weights, walked for exercise. 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 Current Functional Impairments (Reported) Functional Limitations- ADL's Independent with ADLs. Sleeps on L side. Functional Limitations- Mobility/Gait Pt denies ambulatory dysfunction. He denies decreased balance. 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 Functional Limitations- Other Must put tops on reaching into arm holes rather than lifting arms overhead. He can only partly reach up with his L arm 1/2 way to shoulder hgt. Not able to lift, can help carry groceries. Unknown lifting limit. Personal Factors Other Personal Factors That May Effect Lives [place] with partner. Therapy/Recovery Recovering from carotid artery surgery with secondary post stroke. Diabetes type II controlled by Metformin. CHF, heart arrhythmia with planned cardioconversion in 1 month. PT-OP-C Subjective Start: 05/07/20 18:05 Freq: Status: Active Protocol: Document 06/19/20 12:52 LRN (Rec: 06/19/20 13:34 LRN [id number]) OP-PT Subjective Patient Comments Patient Comments No change. PT-OP-E Functional Tests Start: 05/07/20 18:05 Freq: Status: Active Protocol: Document 06/16/20 10:34 LRN (Rec: 06/16/20 11:23 LRN [id number]) Functional Tests Apley's Scratch Test Action 2- Left T2 Action 2- Right T4 Action 3- Left Lateral buttock Action 3- Right T12 PT-OP-H Neuro Start: 05/07/20 18:05 Freq: Status: Active Protocol: Document 05/12/20 11:20 LRN (Rec: 05/12/20 12:27 LRN [id number]) Sensation Evaluation Gross Sensation Gross Sensation WNL Vital Signs Pulse Resting Pulse at Rest (bpm) 72 Pulse Assessment Method Palpation Blood Pressure Sitting Blood Pressure (90/60-120/80 mmHg) 130/80 H Blood Pressure Source Manual Cuff,Right Upper Extremity PT-OP-J Posture/Palpation/Skin Start: 05/07/20 18:05 Freq: Status: Active Protocol: Document 05/12/20 11:20 LRN (Rec: 05/12/20 17:06 LRN [id number]) Posture Evaluation Position Standing Evaluation View All positions Head/C-Spine Posture Forward Head Shoulder Posture (L) Forward,(R) Forward Shoulder Subluxation Degree (L) < 1 Finger wide Shoulder Subluxation Position (L) Anterior Scapula Posture (L) Rotated Up Palpation Assessment Location L shoulder Palpation Location L shoulder Palpation Findings Tenderness PT-OP-K Range of Motion Start: 05/07/20 18:05 Freq: Status: Active Protocol: Document 06/16/20 10:34 LRN (Rec: 06/16/20 11:23 LRN [id number]) Shoulder Goniometric Range of Motion Shoulder Right Passive Shoulder ROM WFL Yes Testing Position Supine Flexion 152 Abduction 180 External Rotation at 45 degrees 85 Abduction Internal Rotation 50 Left Passive Shoulder ROM WFL No Testing Position Supine Flexion 132 Abduction 83 External Rotation at 90 degrees 25 Abduction External Rotation at 45 degrees 36 Abduction Internal Rotation 18 Right Active Testing Position Sitting Flexion 150 Extension 52 Abduction 180 Horizontal Adduction 27 Left Active Testing Position Sitting Flexion 80 Extension 43 Abduction 70 Horizontal Adduction 0 PT-OP-M Strength Start: 05/07/20 18:05 Freq: Status: Active Protocol: Document 05/12/20 11:20 LRN (Rec: 05/12/20 17:06 LRN [id number]) Shoulder Strength Shoulder Manual Muscle Testing Right Comments Flex, AB, ER, IR strength is 5 /5. Left Flexion 2 Poor Extension 2+ Poor+ Abduction (C5) 2- Poor- External Rotation 2- Poor- Internal Rotation 2 Poor PT-OP-Q Treatments Start: 05/07/20 18:05 Freq: Status: Active Protocol: Document 06/19/20 12:52 LRN (Rec: 06/19/20 13:34 LRN [id number]) Cardio Equipment Upper Body Ergometer (UBE) Duration (Minutes) 8 RPM 90 Seat Position 12 Height 3 Other Pt needed phys assist to L wrist/hand for normalized movement Therapeutic Exercises Supine Exercises Shoulder IR Supine Exercise Name Shoulder IR stretch Side left Reps/Minutes 5' Comments Used R arm to teach pt L arm placement PROM L shoulder Supine Exercise Name PROM Flex,ER, IR Side left Reps/Minutes 10' Comments Stabilized joint with hand Shoulder AB Supine Exercise Name Assisted Shoulder AB Side left Reps/Minutes 5' Comments Phys and v. cuing with determining tolerable stretch position and hold time Chest press Supine Exercise Name Chest press Plus (extra shove) Side bilateral Reps/Minutes 5' Comments Assist to L Scap needed to start Sidelying Exercises Shoulder AB Sidelying Exercise Name Shoulder AB w/elbow flexed Side left Reps/Minutes 15x Comments Manual assist needed to guide Elbow towards ceiling Shoulder IR Sidelying Exercise Name Shoulder IR Side left Resistance 1#, 0# Reps/Minutes 15x each Shoulder ER Sidelying Exercise Name Shoulder ER Side left Reps/Minutes 30x Comments Pt able to lift to 0 deg' ER position Sitting Exercises Jordan Sitting Exercise Name Shoulder Flex Side left Reps/Minutes 3' PT-OP-T Assessment and Plan Start: 05/07/20 18:05 Freq: Status: Active Protocol: Document 06/19/20 12:52 LRN (Rec: 06/19/20 13:34 LRN [id number]) Physical Therapy Assessment Goals Four Impairment L shoulder pain that is constant, rated 4/10 Short Term Goal (STG) Pt will be educated in methods to reduce his sleeping on his L shoulder, and will reduce the need for Tylenol on a daily basis. STG Duration 09/09/20 (06/23/20: MET GOAL) Intermediate Goal (LTG) Decrease L shoulder pain to no greater than 1/10 with ability to sleep at night without the use of medications . (06/16/20: Using sleep med to help shut the brain off (uses 1/2), not because of pain. LTG Duration 09/09/20 (06/23/20: MET GOAL) Three Impairment Decreased L shoulder strength Short Term Goal (STG) Pt will be able to report increased use of his L arm with tolerable discomfort. STG Duration 06/23/20 (06/16/20: MET GOAL) Intermediate Goal (LTG) Improve L shoulder strength to no less than 4/5 with pt able to move around in bed without difficulty and mild pain that will not hinder his sleep. LTG Duration 09/09/20 (06/16/20 MET GOAL) One Impairment Lacks appropriate self care HEP Intermediate Goal (LTG) Pt will be independent in a self care HEP for PF strengthening. LTG Duration 09/09/20 Two Impairment Decreased L shoulder mobility Short Term Goal (STG) Pt will be able to lift his arm to shoulder hgt to improve ability for dressing. STG Duration 06/23/20 [employer] Goal (LTG) Pt will be able to lift his L arm overhead for ease of putting his shirts on. LTG Duration 09/09/20 Assessment Summary Assessment Pt L GHJ pain stiffness due to L shoulder possible subluxation history. Pt very limited with L shoulder flex, ER, IR. Very weak scapular stabilizers. Physical Therapy Plan Frequency and Duration Frequency of Treatment 2x/Week Plan of Care Start Date 05/12/20 Plan of Care End Date 09/09/20 Next Visit Focus/Plan Next Note Type Treatment Note Next Visit Plan Check DTRs. Pt cardioconverted ; therefore not necessary to check BP before and after UBE, but pt should ex no greater than somewhat hard BEAUCHAMP level. Recommend cardiac rehab. Monitor if pt in distress, post session response. Monitor as needed cardiovascular signs (for elevated BP). Progress L shoulder ROM (add sitting table ex of shoulder flex/ER PROM) & strengthening ex's with HEP issued, include scapular stabilizing ex's ( shoulder depression). End with heat or ice as pt needs since pt prefers to do at home .
--- NOTE | 2020-06-22 15:57 | PT.OTN ---
Current Diagnoses Hemiplegia, unspecified affecting left nondominant side (06/22/20) Cerebral infarction due to unspecified occlusion or stenosis of right middle cerebral artery (06/22/20) Muscle weakness (generalized) (06/22/20) Abnormal posture (06/22/20) Physical Therapy Treatment Note PT-OP-A Visit Information Start: 05/07/20 18:05 Freq: Status: Active Protocol: Document 06/22/20 14:21 LRN (Rec: 06/22/20 15:06 LRN [id number]) Out-Patient Physical Therapy Visit Information Visit Information Visit Type Treatment Note Visit Start Time 14:21 Visit Stop Time 15:00 Total Visit Minutes 39 Visit Number 7 Evaluation Information Evaluation Date 05/12/20 Precautions Precautions Possible subluxed L shoulder Recent carotid artery surgery CHF hx & Diabetes type II Arrhythmia of the heart. PT-OP-B Current Condition Start: 05/07/20 18:05 Freq: Status: Active Protocol: Document 05/12/20 11:20 LRN (Rec: 05/12/20 12:27 LRN [id number]) Current Condition History of Current Condition Onset Date 01/03/2020 History of Current Condition Pt had a surgery at [facility] ([place]) and after surgery plaque from the carotid artery broke loose causing a stroke in which he states he was totally paralyzed on the L side. He was in [facility] for 10 days and was moved to [facility] in [facility] for inpt rehab for 1 month, because his partner lives in [place]. During his stroke recovery he had rolled away from his L side, leaving the L arm behind and causing severe pain in the shoulder. Pt states he was told he subluxed the L shoulder. Now his only problem seems to be L shoulder pain, today rated 2/ 10. He is looking forward to doing outpt PT to relieve pain and strengthen up his shoulder. States at night the pain wakes him up and overall the pain is annoying and constant unless taking Tylenol , which helps to reduce his pain. He takes ASA daily and a blood thinner medication due to CHF and A Fib. Prior Treatments and Tests 1 month inpt rehab at [facility] in [place], and had a brief period of home health PT. Future Testing and Treatments Planned Cardioconversion planned in 1 month in [place]. Treatment Goals Patient/Caregiver Goals Pt goal is to strength his L shoulder, regain L arm function, and become painfree. Prior Functional Status Baseline Function- ADL's Independent Baseline Function- Mobility Independent Baseline Function- Gait Normal Baseline Function- Recreation/Hobbies Exercises and lifted free weights, walked for exercise. 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 Current Functional Impairments (Reported) Functional Limitations- ADL's Independent with ADLs. Sleeps on L side. Functional Limitations- Mobility/Gait Pt denies ambulatory dysfunction. He denies decreased balance. 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 Functional Limitations- Other Must put tops on reaching into arm holes rather than lifting arms overhead. He can only partly reach up with his L arm 1/2 way to shoulder hgt. Not able to lift, can help carry groceries. Unknown lifting limit. Personal Factors Other Personal Factors That May Effect Lives [place] with partner. Therapy/Recovery Recovering from carotid artery surgery with secondary post stroke. Diabetes type II controlled by Metformin. CHF, heart arrhythmia with planned cardioconversion in 1 month. PT-OP-C Subjective Start: 05/07/20 18:05 Freq: Status: Active Protocol: Document 06/22/20 14:21 LRN (Rec: 06/22/20 15:06 LRN [id number]) OP-PT Subjective Patient Comments Patient Comments States his L shoulder is stiff to start. States he was playing on the floor with his dog and he put too much weight into the arm and had pain. PT-OP-E Functional Tests Start: 05/07/20 18:05 Freq: Status: Active Protocol: Document 06/16/20 10:34 LRN (Rec: 06/16/20 11:23 LRN [id number]) Functional Tests Apley's Scratch Test Action 2- Left T2 Action 2- Right T4 Action 3- Left Lateral buttock Action 3- Right T12 PT-OP-H Neuro Start: 05/07/20 18:05 Freq: Status: Active Protocol: Document 06/22/20 14:21 LRN (Rec: 06/22/20 15:06 LRN [id number]) Deep Tendon Reflex & Clonus Assessment Deep Tendon Reflex Right Tricep Deep Tendon Reflex 2+ Normal Right Bicep Deep Tendon Reflex 2+ Normal Left Tricep Deep Tendon Reflex 2+ Normal Left Bicep Deep Tendon Reflex 3+ Normal But Brisk PT-OP-J Posture/Palpation/Skin Start: 05/07/20 18:05 Freq: Status: Active Protocol: Document 05/12/20 11:20 LRN (Rec: 05/12/20 17:06 LRN [id number]) Posture Evaluation Position Standing Evaluation View All positions Head/C-Spine Posture Forward Head Shoulder Posture (L) Forward,(R) Forward Shoulder Subluxation Degree (L) < 1 Finger wide Shoulder Subluxation Position (L) Anterior Scapula Posture (L) Rotated Up Palpation Assessment Location L shoulder Palpation Location L shoulder Palpation Findings Tenderness PT-OP-K Range of Motion Start: 05/07/20 18:05 Freq: Status: Active Protocol: Document 06/16/20 10:34 LRN (Rec: 06/16/20 11:23 LRN [id number]) Shoulder Goniometric Range of Motion Shoulder Right Passive Shoulder ROM WFL Yes Testing Position Supine Flexion 152 Abduction 180 External Rotation at 45 degrees 85 Abduction Internal Rotation 50 Left Passive Shoulder ROM WFL No Testing Position Supine Flexion 132 Abduction 83 External Rotation at 90 degrees 25 Abduction External Rotation at 45 degrees 36 Abduction Internal Rotation 18 Right Active Testing Position Sitting Flexion 150 Extension 52 Abduction 180 Horizontal Adduction 27 Left Active Testing Position Sitting Flexion 80 Extension 43 Abduction 70 Horizontal Adduction 0 PT-OP-M Strength Start: 05/07/20 18:05 Freq: Status: Active Protocol: Document 05/12/20 11:20 LRN (Rec: 05/12/20 17:06 LRN [id number]) Shoulder Strength Shoulder Manual Muscle Testing Right Comments Flex, AB, ER, IR strength is 5 /5. Left Flexion 2 Poor Extension 2+ Poor+ Abduction (C5) 2- Poor- External Rotation 2- Poor- Internal Rotation 2 Poor PT-OP-Q Treatments Start: 05/07/20 18:05 Freq: Status: Active Protocol: Document 06/22/20 14:21 LRN (Rec: 06/22/20 15:06 LRN [id number]) Cardio Equipment Upper Body Ergometer (UBE) Duration (Minutes) 8 RPM 80 Seat Position 12 Height 3 Therapeutic Exercises Sidelying Exercises Shoulder AB Sidelying Exercise Name Shoulder AB w/elbow flexed Side left Reps/Minutes 15x Comments Manual assist needed to guide Elbow towards ceiling Shoulder IR Sidelying Exercise Name Shoulder IR Side left Resistance 1# Reps/Minutes 15x each Shoulder ER Sidelying Exercise Name Shoulder ER Side left Resistance 1#, 0# Reps/Minutes 15x each Comments Pt able to lift ~20 deg's ER position Sitting Exercises Bicep Curl Sitting Exercise Name Bicep Curl Resistance 4# R, 3# L. Reps/Minutes 10x Manual Therapy Treatment Soft Tissue Mobilization C/S Paraspinals Body Location Av C/S Paraspinals Mobilization Type Strumming Intensity/Depth Moderate Body Position Sidelying upper trap Body Location L UT Mobilization Type Sustained Pressure,Trigger Point Release Intensity/Depth Moderate Body Position Supine Manual Techniques MWM Type L Shoulder Flex w/posterior glide of humeral head into Glenoid joint Body Location L shoulder Body Position Sitting Reps/Duration 6' Comments Compression and distraction was mildly helpful with initial movement, but increased pain as held for stretch. Posterior glide of humeral head in Glenoid Cavity relieved pain for entire exercise. PT-OP-T Assessment and Plan Start: 05/07/20 18:05 Freq: Status: Active Protocol: Document 06/22/20 14:21 LRN (Rec: 06/22/20 15:06 LRN [id number]) Physical Therapy Assessment Goals Four Impairment L shoulder pain that is constant, rated 4/10 Short Term Goal (STG) Pt will be educated in methods to reduce his sleeping on his L shoulder, and will reduce the need for Tylenol on a daily basis. STG Duration 09/09/20 (06/23/20: MET GOAL) Usp Goal (LTG) Decrease L shoulder pain to no greater than 1/10 with ability to sleep at night without the use of medications . (06/16/20: Using sleep med to help shut the brain off (uses 1/2), not because of pain. LTG Duration 09/09/20 (06/23/20: MET GOAL) Three Impairment Decreased L shoulder strength Short Term Goal (STG) Pt will be able to report increased use of his L arm with tolerable discomfort. STG Duration 06/23/20 (06/16/20: MET GOAL) Scheduling Agent Goal (LTG) Improve L shoulder strength to no less than 4/5 with pt able to move around in bed without difficulty and mild pain that will not hinder his sleep. LTG Duration 09/09/20 (06/16/20 MET GOAL) One Impairment Lacks appropriate self care HEP Usp Goal (LTG) Pt will be independent in a self care HEP for PF strengthening. LTG Duration 09/09/20 Two Impairment Decreased L shoulder mobility Short Term Goal (STG) Pt will be able to lift his arm to shoulder hgt to improve ability for dressing. STG Duration 06/23/20 Scheduling Agent Goal (LTG) Pt will be able to lift his L arm overhead for ease of putting his shirts on. LTG Duration 09/09/20 Progress Towards Goals Progress Comments L shoulder PROM w/gabriele increased from 90 degs' flex to 100 deg's flex after MWM treatment and without sharp pain. Pain in L shoulder at start of therapy rated 5/10, ending pain 0/10. Assessment Summary Assessment DTRs appear normal except L biceps is midly hyper. Pt noted since playing with his dog he has had an increase in ms tension in the L neck and UT along with his complaint of pain in the medial deltoid, sometimes sharp. He did have increased ms tension in the neck and upper shoulder. I was able to resolve the sharp pain in his L shoulder with AAROM with WMW to L GHJ. L shoulder mobility is stiff, and generally weak. Physical Therapy Plan Frequency and Duration Frequency of Treatment 2x/Week Plan of Care Start Date 05/12/20 Plan of Care End Date 09/09/20 Next Visit Focus/Plan Next Note Type Treatment Note Next Visit Plan Pt cardioconverted; therefore not necessary to check BP before and after UBE, but pt should ex no greater than somewhat hard BEAUCHAMP level. Discuss cardiac rehab with pt. Monitor if pt in distress, post-session response. Monitor as needed cardiovascular signs (for elevated BP). Progress L shoulder ROM (add sitting table ex of shoulder flex/ER PROM) & strengthening ex's with HEP issued, include scapular stabilizing ex's ( shoulder depression). End with heat or ice as pt needs since pt prefers to do at home .
--- NOTE | 2020-06-26 17:15 | PT.OTN ---
Current Diagnoses Hemiplegia, unspecified affecting left nondominant side (06/26/20) Cerebral infarction due to unspecified occlusion or stenosis of right middle cerebral artery (06/26/20) Muscle weakness (generalized) (06/26/20) Abnormal posture (06/26/20) Physical Therapy Treatment Note PT-OP-A Visit Information Start: 05/07/20 18:05 Freq: Status: Active Protocol: Document 06/26/20 13:33 LRN (Rec: 06/26/20 14:17 LRN [id number]) Out-Patient Physical Therapy Visit Information Visit Information Visit Type Treatment Note Visit Start Time 13:33 Visit Stop Time 14:14 Total Visit Minutes 41 Visit Number 8 Evaluation Information Evaluation Date 05/12/20 Precautions Precautions Possible subluxed L shoulder Recent carotid artery surgery CHF hx & Diabetes type II Arrhythmia of the heart. PT-OP-B Current Condition Start: 05/07/20 18:05 Freq: Status: Active Protocol: Document 05/12/20 11:20 LRN (Rec: 05/12/20 12:27 LRN [id number]) Current Condition History of Current Condition Onset Date 01/03/2020 History of Current Condition Pt had a surgery at [facility] ([place]) and after surgery plaque from the carotid artery broke loose causing a stroke in which he states he was totally paralyzed on the L side. He was in [facility] for 10 days and was moved to [facility] in [facility] for inpt rehab for 1 month, because his partner lives in [place]. During his stroke recovery he had rolled away from his L side, leaving the L arm behind and causing severe pain in the shoulder. Pt states he was told he subluxed the L shoulder. Now his only problem seems to be L shoulder pain, today rated 2/ 10. He is looking forward to doing outpt PT to relieve pain and strengthen up his shoulder. States at night the pain wakes him up and overall the pain is annoying and constant unless taking Tylenol , which helps to reduce his pain. He takes ASA daily and a blood thinner medication due to CHF and A Fib. Prior Treatments and Tests 1 month inpt rehab at [facility] in [place], and had a brief period of home health PT. Future Testing and Treatments Planned Cardioconversion planned in 1 month in [place]. Treatment Goals Patient/Caregiver Goals Pt goal is to strength his L shoulder, regain L arm function, and become painfree. Prior Functional Status Baseline Function- ADL's Independent Baseline Function- Mobility Independent Baseline Function- Gait Normal Baseline Function- Recreation/Hobbies Exercises and lifted free weights, walked for exercise. 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 Current Functional Impairments (Reported) Functional Limitations- ADL's Independent with ADLs. Sleeps on L side. Functional Limitations- Mobility/Gait Pt denies ambulatory dysfunction. He denies decreased balance. 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 Functional Limitations- Other Must put tops on reaching into arm holes rather than lifting arms overhead. He can only partly reach up with his L arm 1/2 way to shoulder hgt. Not able to lift, can help carry groceries. Unknown lifting limit. Personal Factors Other Personal Factors That May Effect Lives [place] with partner. Therapy/Recovery Recovering from carotid artery surgery with secondary post stroke. Diabetes type II controlled by Metformin. CHF, heart arrhythmia with planned cardioconversion in 1 month. PT-OP-C Subjective Start: 05/07/20 18:05 Freq: Status: Active Protocol: Document 06/26/20 13:33 LRN (Rec: 06/26/20 14:17 LRN [id number]) OP-PT Subjective Patient Comments Patient Comments Can't tell if anything is better. L arm doesn't feel as stiff. Can lift L arm higher because he can wash his hair easier and can reach the back of his head. PT-OP-E Functional Tests Start: 05/07/20 18:05 Freq: Status: Active Protocol: Document 06/16/20 10:34 LRN (Rec: 06/16/20 11:23 LRN [id number]) Functional Tests Apley's Scratch Test Action 2- Left T2 Action 2- Right T4 Action 3- Left Lateral buttock Action 3- Right T12 PT-OP-H Neuro Start: 05/07/20 18:05 Freq: Status: Active Protocol: Document 06/22/20 14:21 LRN (Rec: 06/22/20 15:06 LRN [id number]) Deep Tendon Reflex & Clonus Assessment Deep Tendon Reflex Right Tricep Deep Tendon Reflex 2+ Normal Right Bicep Deep Tendon Reflex 2+ Normal Left Tricep Deep Tendon Reflex 2+ Normal Left Bicep Deep Tendon Reflex 3+ Normal But Brisk PT-OP-J Posture/Palpation/Skin Start: 05/07/20 18:05 Freq: Status: Active Protocol: Document 05/12/20 11:20 LRN (Rec: 05/12/20 17:06 LRN [id number]) Posture Evaluation Position Standing Evaluation View All positions Head/C-Spine Posture Forward Head Shoulder Posture (L) Forward,(R) Forward Shoulder Subluxation Degree (L) < 1 Finger wide Shoulder Subluxation Position (L) Anterior Scapula Posture (L) Rotated Up Palpation Assessment Location L shoulder Palpation Location L shoulder Palpation Findings Tenderness PT-OP-K Range of Motion Start: 05/07/20 18:05 Freq: Status: Active Protocol: Document 06/26/20 13:33 LRN (Rec: 06/26/20 14:17 LRN [id number]) Shoulder Goniometric Range of Motion Shoulder Left Passive Shoulder ROM WFL No Testing Position Sitting Flexion 100 Left Active Shoulder ROM WFL No Testing Position Sitting Flexion 80 PT-OP-M Strength Start: 05/07/20 18:05 Freq: Status: Active Protocol: Document 05/12/20 11:20 LRN (Rec: 05/12/20 17:06 LRN [id number]) Shoulder Strength Shoulder Manual Muscle Testing Right Comments Flex, AB, ER, IR strength is 5 /5. Left Flexion 2 Poor Extension 2+ Poor+ Abduction (C5) 2- Poor- External Rotation 2- Poor- Internal Rotation 2 Poor PT-OP-Q Treatments Start: 05/07/20 18:05 Freq: Status: Active Protocol: Document 06/26/20 13:33 LRN (Rec: 06/26/20 14:17 LRN [id number]) Cardio Equipment Upper Body Ergometer (UBE) Duration (Minutes) 9 RPM 80 Seat Position 12 Height 4 Therapeutic Exercises Sitting Exercises Sit dips Sitting Exercise Name Chair dips in sitting on plinth Side bilateral Resistance towel rolls under hands Reps/Minutes 3' Shoulder flex table reach Sitting Exercise Name Reaching fwd/sides L arm on wedge/on table Side left Reps/Minutes 6' Scapular pinches Sitting Exercise Name Scapular pinches Side bilateral Reps/Minutes 30x Wrist ext/Elbow Curl Sitting Exercise Name Wrist ext f/b elbow curl Resistance 2# R, 1# L. Bicep Curl Sitting Exercise Name Bicep Curl Resistance 4# R, 3# L. Reps/Minutes 10x Jordan Sitting Exercise Name Shoulder Flex Side left Reps/Minutes 5' Standing Exercises Wall slide Standing Exercise Name L hand wall slide Side left Reps/Minutes 4' Wall finger crawl Standing Exercise Name L hand finger crawl Side left Reps/Minutes 2' PT-OP-T Assessment and Plan Start: 05/07/20 18:05 Freq: Status: Active Protocol: Document 06/26/20 13:33 LRN (Rec: 06/26/20 14:17 LRN [id number]) Physical Therapy Assessment Goals One Impairment Lacks appropriate self care HEP Activity Therapy Specialist Goal (LTG) Pt will be independent in a self care HEP for PF strengthening. LTG Duration 09/09/20 Two Impairment Decreased L shoulder mobility Short Term Goal (STG) Pt will be able to lift his arm to shoulder hgt to improve ability for dressing. STG Duration 06/23/20 (06/26/20: Progressing ) Chcf Goal (LTG) Pt will be able to lift his L arm overhead for ease of putting his shirts on. LTG Duration 09/09/20 Progress Towards Goals Progress Comments Pt active L shoulder flex is 80 deg's, passively is 100 deg 's. Pt is able to reach the back of his head on top and bottom with his L hand. Assessment Summary Assessment Pt very receptive to the idea of doing cardiac rehab due to his low endurance and fatigue at the end of the day. Pt was very fatigued in L shoulder/ scapula at end of treatment. Physical Therapy Plan Frequency and Duration Frequency of Treatment 2x/Week Plan of Care Start Date 05/12/20 Plan of Care End Date 09/09/20 Next Visit Focus/Plan Next Note Type Treatment Note Next Visit Plan Pt cardioconverted; therefore not necessary to check BP before and after UBE, but pt should ex no greater than somewhat hard BEAUCHAMP level. Monitor if pt in distress, post-session response. Monitor as needed cardiovascular signs (for elevated BP). Progress L shoulder ROM (review sitting table ex of shoulder flex/ER PROM) & strengthening ex's with HEP issued, include scapular stabilizing ex's ( shoulder depression). End with heat or ice as pt needs since pt prefers to do at home .
[2020-06-29 14:22] VITALS: BP 120/78; PULSE 88; O2SAT 100
--- NOTE | 2020-06-29 15:56 | PT.OTN ---
Current Diagnoses Hemiplegia, unspecified affecting left nondominant side (06/29/20) Cerebral infarction due to unspecified occlusion or stenosis of right middle cerebral artery (06/29/20) Muscle weakness (generalized) (06/29/20) Abnormal posture (06/29/20) Physical Therapy Treatment Note PT-OP-A Visit Information Start: 05/07/20 18:05 Freq: Status: Active Protocol: Document 06/29/20 14:22 LRN (Rec: 06/29/20 15:10 LRN [id number]) Out-Patient Physical Therapy Visit Information Visit Information Visit Type Treatment Note Visit Start Time 14:22 Visit Stop Time 15:09 Total Visit Minutes 47 Visit Number 9 Evaluation Information Evaluation Date 05/12/20 Precautions Precautions Possible subluxed L shoulder Recent carotid artery surgery CHF hx & Diabetes type II Arrhythmia of the heart. PT-OP-B Current Condition Start: 05/07/20 18:05 Freq: Status: Active Protocol: Document 05/12/20 11:20 LRN (Rec: 05/12/20 12:27 LRN [id number]) Current Condition History of Current Condition Onset Date 01/03/2020 History of Current Condition Pt had a surgery at [facility] ([place]) and after surgery plaque from the carotid artery broke loose causing a stroke in which he states he was totally paralyzed on the L side. He was in [facility] for 10 days and was moved to [facility] in [facility] for inpt rehab for 1 month, because his partner lives in [place]. During his stroke recovery he had rolled away from his L side, leaving the L arm behind and causing severe pain in the shoulder. Pt states he was told he subluxed the L shoulder. Now his only problem seems to be L shoulder pain, today rated 2/ 10. He is looking forward to doing outpt PT to relieve pain and strengthen up his shoulder. States at night the pain wakes him up and overall the pain is annoying and constant unless taking Tylenol , which helps to reduce his pain. He takes ASA daily and a blood thinner medication due to CHF and A Fib. Prior Treatments and Tests 1 month inpt rehab at [facility] in [place], and had a brief period of home health PT. Future Testing and Treatments Planned Cardioconversion planned in 1 month in [place]. Treatment Goals Patient/Caregiver Goals Pt goal is to strength his L shoulder, regain L arm function, and become painfree. Prior Functional Status Baseline Function- ADL's Independent Baseline Function- Mobility Independent Baseline Function- Gait Normal Baseline Function- Recreation/Hobbies Exercises and lifted free weights, walked for exercise. 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 Current Functional Impairments (Reported) Functional Limitations- ADL's Independent with ADLs. Sleeps on L side. Functional Limitations- Mobility/Gait Pt denies ambulatory dysfunction. He denies decreased balance. 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 Functional Limitations- Other Must put tops on reaching into arm holes rather than lifting arms overhead. He can only partly reach up with his L arm 1/2 way to shoulder hgt. Not able to lift, can help carry groceries. Unknown lifting limit. Personal Factors Other Personal Factors That May Effect Lives [place] with partner. Therapy/Recovery Recovering from carotid artery surgery with secondary post stroke. Diabetes type II controlled by Metformin. CHF, heart arrhythmia with planned cardioconversion in 1 month. PT-OP-C Subjective Start: 05/07/20 18:05 Freq: Status: Active Protocol: Document 06/29/20 14:22 LRN (Rec: 06/29/20 15:10 LRN [id number]) OP-PT Subjective Patient Comments Patient Comments States he saw a accessories repairer this morning and was told he was not appropriate for cardio rehab due to his A.Flutter. He was cleared to walk and did not DC physical therapy when pt told him, he was in PT. States the plan for his heart is to have a cardio ablation. States the L shoulder is stronger because he can lean into his arms to say annamarie to his partner by placing most of his weight into his arms. PT-OP-E Functional Tests Start: 05/07/20 18:05 Freq: Status: Active Protocol: Document 06/16/20 10:34 LRN (Rec: 06/16/20 11:23 LRN [id number]) Functional Tests Apley's Scratch Test Action 2- Left T2 Action 2- Right T4 Action 3- Left Lateral buttock Action 3- Right T12 PT-OP-H Neuro Start: 05/07/20 18:05 Freq: Status: Active Protocol: Document 06/29/20 14:22 LRN (Rec: 06/29/20 15:10 LRN [id number]) Vital Signs Pulse Resting Pulse at Rest (bpm) 88 Pulse Assessment Method Pulse Ox/Monitor Blood Pressure Sitting Blood Pressure (90/60-120/80 mmHg) 120/78 Blood Pressure Source Manual Cuff,Right Upper Extremity Comments Vital Signs Comments Post exercises: HR is 92-88, BP is 122/68. PT-OP-J Posture/Palpation/Skin Start: 05/07/20 18:05 Freq: Status: Active Protocol: Document 05/12/20 11:20 LRN (Rec: 05/12/20 17:06 LRN [id number]) Posture Evaluation Position Standing Evaluation View All positions Head/C-Spine Posture Forward Head Shoulder Posture (L) Forward,(R) Forward Shoulder Subluxation Degree (L) < 1 Finger wide Shoulder Subluxation Position (L) Anterior Scapula Posture (L) Rotated Up Palpation Assessment Location L shoulder Palpation Location L shoulder Palpation Findings Tenderness PT-OP-K Range of Motion Start: 05/07/20 18:05 Freq: Status: Active Protocol: Document 06/29/20 14:22 LRN (Rec: 06/29/20 15:10 LRN [id number]) Shoulder Goniometric Range of Motion Shoulder Right Passive Shoulder ROM WFL Yes Testing Position Sitting Flexion 157 Left Passive Shoulder ROM WFL No Testing Position Sitting Flexion 110 PT-OP-M Strength Start: 05/07/20 18:05 Freq: Status: Active Protocol: Document 05/12/20 11:20 LRN (Rec: 05/12/20 17:06 LRN [id number]) Shoulder Strength Shoulder Manual Muscle Testing Right Comments Flex, AB, ER, IR strength is 5 /5. Left Flexion 2 Poor Extension 2+ Poor+ Abduction (C5) 2- Poor- External Rotation 2- Poor- Internal Rotation 2 Poor PT-OP-Q Treatments Start: 05/07/20 18:05 Freq: Status: Active Protocol: Document 06/29/20 14:22 LRN (Rec: 06/29/20 15:10 LRN [id number]) Cardio Equipment Upper Body Ergometer (UBE) Duration (Minutes) 10 RPM 80 Seat Position 12 Height 4 Therapeutic Exercises Sitting Exercises Sit dips Sitting Exercise Name Chair dips in sitting on plinth Side bilateral Resistance towel rolls under hands Reps/Minutes 10' Comments not able to train Scapular pinches Sitting Exercise Name Scapular pinches Side bilateral Reps/Minutes 30x Wrist ext/Elbow Curl Sitting Exercise Name Wrist ext Resistance 2# R, 1# L. Reps/Minutes 20x Bicep Curl Sitting Exercise Name Bicep Curl Resistance 4# R, 3# L. Reps/Minutes 15x Jordan Sitting Exercise Name Shoulder Flex Side left Reps/Minutes 5' Standing Exercises Shoulder/Elbow Extension Standing Exercise Name Shoulder/Elbow Extension Side bilateral Reps/Minutes 20x Wall slide Standing Exercise Name Window slides, L & Av Side left Reps/Minutes 4' PT-OP-T Assessment and Plan Start: 05/07/20 18:05 Freq: Status: Active Protocol: Document 06/29/20 14:22 LRN (Rec: 06/29/20 15:10 LRN [id number]) Physical Therapy Assessment Goals One Impairment Lacks appropriate self care HEP Hide Or Skin Buffer Goal (LTG) Pt will be independent in a self care HEP for PF strengthening. LTG Duration 09/09/20 Two Impairment Decreased L shoulder mobility Short Term Goal (STG) Pt will be able to lift his arm to shoulder hgt to improve ability for dressing. STG Duration 06/23/20 (06/29/20: Progressing ) Long-Term Goal (LTG) Pt will be able to lift his L arm overhead for ease of putting his shirts on. LTG Duration 09/09/20 Progress Towards Goals Progress Comments Passive L Shoulder flex in sitting using a Jordan has improved from 100 deg's to 110 deg's. Assessment Summary Assessment Starting BP is good at 120/78 & HR is good at 88 bpm. After exercise BP was 122/68, HR 92 -88. Vitals are stable. Pt is tolerating more ex and longer duration; therefore his endurance is improving. Physical Therapy Plan Frequency and Duration Frequency of Treatment 2x/Week Plan of Care Start Date 05/12/20 Plan of Care End Date 09/09/20 Next Visit Focus/Plan Next Note Type Progress Note Next Visit Plan Due to recent results from accessories repairer visit, pt has A. Flutter; therefore will check BP before and after UBE. Monitor as needed cardiovascular signs (for elevated BP). Pt should ex no greater than somewhat hard BEAUCHAMP level. Monitor for pt in distress. Focus on improving strength of scapular depressors. Progress L shoulder ROM ( review sitting table ex of shoulder flex/ER PROM) & strengthening ex's with HEP, include scapular stabilizing ex's (shoulder depression). End with heat or ice as pt needs since pt prefers to do at home.
--- NOTE | 2020-07-03 14:49 | PT.OTN ---
Current Diagnoses Hemiplegia, unspecified affecting left nondominant side (07/03/20) Cerebral infarction due to unspecified occlusion or stenosis of right middle cerebral artery (07/03/20) Muscle weakness (generalized) (07/03/20) Abnormal posture (07/03/20) Physical Therapy Treatment Note PT-OP-A Visit Information Start: 05/07/20 18:05 Freq: Status: Active Protocol: Document 07/03/20 13:39 LRN (Rec: 07/03/20 14:48 LRN [id number]) Out-Patient Physical Therapy Visit Information Visit Information Visit Type Progress Note Visit Start Time 13:39 Visit Stop Time 14:24 Total Visit Minutes 45 Visit Number 10 Evaluation Information Evaluation Date 05/12/20 Precautions Precautions Possible subluxed L shoulder Recent carotid artery surgery CHF hx & Diabetes type II Arrhythmia of the heart. PT-OP-B Current Condition Start: 05/07/20 18:05 Freq: Status: Active Protocol: Document 05/12/20 11:20 LRN (Rec: 05/12/20 12:27 LRN [id number]) Current Condition History of Current Condition Onset Date 01/03/2020 History of Current Condition Pt had a surgery at [facility] ([place]) and after surgery plaque from the carotid artery broke loose causing a stroke in which he states he was totally paralyzed on the L side. He was in [facility] for 10 days and was moved to [facility] in [facility] for inpt rehab for 1 month, because his partner lives in [place]. During his stroke recovery he had rolled away from his L side, leaving the L arm behind and causing severe pain in the shoulder. Pt states he was told he subluxed the L shoulder. Now his only problem seems to be L shoulder pain, today rated 2/ 10. He is looking forward to doing outpt PT to relieve pain and strengthen up his shoulder. States at night the pain wakes him up and overall the pain is annoying and constant unless taking Tylenol , which helps to reduce his pain. He takes ASA daily and a blood thinner medication due to CHF and A Fib. Prior Treatments and Tests 1 month inpt rehab at [facility] in [place], and had a brief period of home health PT. Future Testing and Treatments Planned Cardioconversion planned in 1 month in [place]. Treatment Goals Patient/Caregiver Goals Pt goal is to strength his L shoulder, regain L arm function, and become painfree. Prior Functional Status Baseline Function- ADL's Independent Baseline Function- Mobility Independent Baseline Function- Gait Normal Baseline Function- Recreation/Hobbies Exercises and lifted free weights, walked for exercise. 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 Current Functional Impairments (Reported) Functional Limitations- ADL's Independent with ADLs. Sleeps on L side. Functional Limitations- Mobility/Gait Pt denies ambulatory dysfunction. He denies decreased balance. 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 Functional Limitations- Other Must put tops on reaching into arm holes rather than lifting arms overhead. He can only partly reach up with his L arm 1/2 way to shoulder hgt. Not able to lift, can help carry groceries. Unknown lifting limit. Personal Factors Other Personal Factors That May Effect Lives [place] partner. Therapy/Recovery Recovering from carotid artery surgery with secondary post stroke. Diabetes type II controlled by Metformin. CHF, heart arrhythmia with planned cardioconversion in 1 month. PT-OP-C Subjective Start: 05/07/20 18:05 Freq: Status: Active Protocol: Document 07/03/20 13:39 LRN (Rec: 07/03/20 14:48 LRN [id number]) OP-PT Subjective Patient Comments Patient Comments States his L shoulder is feeling pretty good. Patient Questionnaires Quick Dash- Upper Extremity Quick Dash UE Score 18.18 Quick Dash UE Impairment 1 to 19% Impaired (Score 1-19) PT-OP-E Functional Tests Start: 05/07/20 18:05 Freq: Status: Active Protocol: Document 06/16/20 10:34 LRN (Rec: 06/16/20 11:23 LRN [id number]) Functional Tests Apley's Scratch Test Action 2- Left T2 Action 2- Right T4 Action 3- Left Lateral buttock Action 3- Right T12 PT-OP-H Neuro Start: 05/07/20 18:05 Freq: Status: Active Protocol: Document 06/29/20 14:22 LRN (Rec: 06/29/20 15:10 LRN [id number]) Vital Signs Pulse Resting Pulse at Rest (bpm) 88 Pulse Assessment Method Pulse Ox/Monitor Blood Pressure Sitting Blood Pressure (90/60-120/80 mmHg) 120/78 Blood Pressure Source Manual Cuff,Right Upper Extremity Comments Vital Signs Comments Post exercises: HR is 92-88, BP is 122/68. PT-OP-J Posture/Palpation/Skin Start: 05/07/20 18:05 Freq: Status: Active Protocol: Document 05/12/20 11:20 LRN (Rec: 05/12/20 17:06 LRN [id number]) Posture Evaluation Position Standing Evaluation View All positions Head/C-Spine Posture Forward Head Shoulder Posture (L) Forward,(R) Forward Shoulder Subluxation Degree (L) < 1 Finger wide Shoulder Subluxation Position (L) Anterior Scapula Posture (L) Rotated Up Palpation Assessment Location L shoulder Palpation Location L shoulder Palpation Findings Tenderness PT-OP-K Range of Motion Start: 05/07/20 18:05 Freq: Status: Active Protocol: Document 07/03/20 13:39 LRN (Rec: 07/03/20 14:48 LRN [id number]) Shoulder Goniometric Range of Motion Shoulder Right Passive Shoulder ROM WFL Yes Testing Position Supine Flexion 158 Abduction 120 External Rotation at 90 degrees 90 Abduction External Rotation at 45 degrees 85 Abduction Internal Rotation 55 Left Passive Shoulder ROM WFL No Testing Position Supine Flexion 118 Abduction 70 External Rotation at 90 degrees 37 Abduction External Rotation at 45 degrees 38 Abduction Internal Rotation 50 Right Active Shoulder ROM WFL Yes Testing Position Sitting Flexion 150 Extension 48 Abduction 165 Comments AB is pure AB Left Active Shoulder ROM WFL No Testing Position Sitting Flexion 85 Extension 27 Abduction 60 Comments AB is pure AB PT-OP-M Strength Start: 05/07/20 18:05 Freq: Status: Active Protocol: Document 05/12/20 11:20 LRN (Rec: 05/12/20 17:06 LRN [id number]) Shoulder Strength Shoulder Manual Muscle Testing Right Comments Flex, AB, ER, IR strength is 5 /5. Left Flexion 2 Poor Extension 2+ Poor+ Abduction (C5) 2- Poor- External Rotation 2- Poor- Internal Rotation 2 Poor PT-OP-Q Treatments Start: 05/07/20 18:05 Freq: Status: Active Protocol: Document 07/03/20 13:39 LRN (Rec: 07/03/20 14:48 LRN [id number]) Cardio Equipment Recumbent Stepper (Sci-Fit) Duration (Minutes) 6 Resistance 1 Seat Position 13 Other 1/2 mile Therapeutic Exercises Supine Exercises Shoulder Flex Supine Exercise Name Active stretch with cane Side left Reps/Minutes 4' Shoulder IR Supine Exercise Name Shoulder IR Active assisted and passive Side left Reps/Minutes 4' PROM L shoulder Supine Exercise Name PROM L shoulder Side left Reps/Minutes 12' Comments ROM taken Shoulder AB Supine Exercise Name Assisted/Active assisted Shoulder AB Side left Reps/Minutes 5' Comments Extra time for tolerable stretch position and pillow to slide arm on Sitting Exercises SHoulder IR stretch Sitting Exercise Name Shoulder IR stretch behind back Side left Reps/Minutes 3' Jordan Sitting Exercise Name Shoulder Flex, AB active assisted & passive Side left Reps/Minutes 10' Standing Exercises Shoulder/Elbow Extension Standing Exercise Name Shoulder/Elbow Extension Side bilateral Reps/Minutes 20x PT-OP-T Assessment and Plan Start: 05/07/20 18:05 Freq: Status: Active Protocol: Document 07/03/20 13:39 LRN (Rec: 07/03/20 14:48 LRN [id number]) Physical Therapy Assessment Goals Five Impairment Decreased L shoulder strength limiting cooking Short Term Goal (STG) Increase L shoulder strength to 3+/5 STG Duration 07/31/20 Penitentiary Goal (LTG) Pt will be able to cook/lift with his pots (3#) with minimal difficulty. LTG Duration 09/09/20 Four Impairment L shoulder pain that is constant, rated 4/10 Short Term Goal (STG) Pt will be educated in methods to reduce his sleeping on his L shoulder, and will reduce the need for Tylenol on a daily basis. STG Duration 09/09/20 (06/23/20: MET GOAL) Lead Carpenter Goal (LTG) Decrease L shoulder pain to no greater than 1/10 with ability to sleep at night without the use of medications . (06/16/20: Using sleep med to help shut the brain off (uses 1/2), not because of pain. LTG Duration 09/09/20 (06/23/20: MET GOAL) Three Impairment Decreased L shoulder strength Short Term Goal (STG) Pt will be able to report increased use of his L arm with tolerable discomfort. STG Duration 06/23/20 (06/16/20: MET GOAL) Penitentiary Goal (LTG) Improve L shoulder strength to no less than 4/5 with pt able to move around in bed without difficulty and mild pain that will not hinder his sleep. LTG Duration 09/09/20 (06/16/20 MET GOAL for moving in bed w/o pain/ sleep hinderance) One Impairment Lacks appropriate self care HEP Lead Carpenter Goal (LTG) Pt will be independent in a self care HEP for L shoulder/ scapula/trunk strengthening. LTG Duration 09/09/20 Two Impairment Decreased L shoulder mobility Short Term Goal (STG) Pt will be able to lift his arm to shoulder hgt to improve ability for dressing. (07/03/20: L Shoulder flex is 85 degs). STG Duration 06/23/20 (07/03/20: Progressing ) Penitentiary Goal (LTG) Pt will be able to lift his L arm overhead for ease of putting his shirts on. LTG Duration 09/09/20 Progress Towards Goals Progress Comments Goals #3 & #4 MET. Improved L shoulder AROM & PROM with improved function with moving around in bed. Per UE Quick DASH pt is 1-19% impaired. Assessment Summary Assessment BP after ex 134/60. Improvement in L shoulder AROM & PROM. UE QuickDASH score is 18.18 = 1<20% impaired. Pt has met the functional aspect of his strength goal; therefore a new strength goal was added (see goal #5). The pt will benefit from continues skilled physical therapy to improve his L UE strength to improve his function with dressing and cooking. Physical Therapy Plan Frequency and Duration Frequency of Treatment 2x/Week Plan of Care Start Date 05/12/20 Plan of Care End Date 09/09/20 Next Visit Focus/Plan Next Note Type Progress Note Next Visit Plan Progress L scapula/shoulder mobility and strength and progression of his HEP. Due to recent results from airplane pilot photogrammetry visit, pt has A. Flutter; therefore will check BP before and after UBE. Monitor as needed cardiovascular signs (for elevated BP). Pt should ex no greater than somewhat hard BEAUCHAMP level. Monitor for pt in distress. Focus on improving strength of scapular depressors. Progress L shoulder ROM ( review sitting table ex of shoulder flex/ER PROM) & strengthening ex's with HEP, include scapular stabilizing ex's (shoulder depression). End with ice as needed for pain, otherwise pt to do at home.
[2020-07-06 13:39] VITALS: BP 118/58; BP 126/70; PULSE 68; PULSE 73; O2SAT 98
--- NOTE | 2020-07-06 16:24 | PT.OTN ---
Current Diagnoses Hemiplegia, unspecified affecting left nondominant side (07/06/20) Cerebral infarction due to unspecified occlusion or stenosis of right middle cerebral artery (07/06/20) Muscle weakness (generalized) (07/06/20) Abnormal posture (07/06/20) Physical Therapy Treatment Note PT-OP-A Visit Information Start: 05/07/20 18:05 Freq: Status: Active Protocol: Document 07/06/20 13:39 LRN (Rec: 07/06/20 14:22 LRN [id number]) Out-Patient Physical Therapy Visit Information Visit Information Visit Type Treatment Note Visit Start Time 13:39 Visit Stop Time 14:20 Total Visit Minutes 41 Visit Number 11 Evaluation Information Evaluation Date 05/12/20 Precautions Precautions Possible subluxed L shoulder Recent carotid artery surgery CHF hx & Diabetes type II Arrhythmia of the heart. PT-OP-B Current Condition Start: 05/07/20 18:05 Freq: Status: Active Protocol: Document 05/12/20 11:20 LRN (Rec: 05/12/20 12:27 LRN [id number]) Current Condition History of Current Condition Onset Date 01/03/2020 History of Current Condition Pt had a surgery at [facility] ([place]) and after surgery plaque from the carotid artery broke loose causing a stroke in which he states he was totally paralyzed on the L side. He was in [facility] for 10 days and was moved to [facility] in [facility] for inpt rehab for 1 month, because his partner lives in [place]. During his stroke recovery he had rolled away from his L side, leaving the L arm behind and causing severe pain in the shoulder. Pt states he was told he subluxed the L shoulder. Now his only problem seems to be L shoulder pain, today rated 2/ 10. He is looking forward to doing outpt PT to relieve pain and strengthen up his shoulder. States at night the pain wakes him up and overall the pain is annoying and constant unless taking Tylenol , which helps to reduce his pain. He takes ASA daily and a blood thinner medication due to CHF and A Fib. Prior Treatments and Tests 1 month inpt rehab at [facility] in [place], and had a brief period of home health PT. Future Testing and Treatments Planned Cardioconversion planned in 1 month in [place]. Treatment Goals Patient/Caregiver Goals Pt goal is to strength his L shoulder, regain L arm function, and become painfree. Prior Functional Status Baseline Function- ADL's Independent Baseline Function- Mobility Independent Baseline Function- Gait Normal Baseline Function- Recreation/Hobbies Exercises and lifted free weights, walked for exercise. 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 Current Functional Impairments (Reported) Functional Limitations- ADL's Independent with ADLs. Sleeps on L side. Functional Limitations- Mobility/Gait Pt denies ambulatory dysfunction. He denies decreased balance. 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 Functional Limitations- Other Must put tops on reaching into arm holes rather than lifting arms overhead. He can only partly reach up with his L arm 1/2 way to shoulder hgt. Not able to lift, can help carry groceries. Unknown lifting limit. Personal Factors Other Personal Factors That May Effect Lives [place] with partner. Therapy/Recovery Recovering from carotid artery surgery with secondary post stroke. Diabetes type II controlled by Metformin. CHF, heart arrhythmia with planned cardioconversion in 1 month. PT-OP-C Subjective Start: 05/07/20 18:05 Freq: Status: Active Protocol: Document 07/06/20 13:39 LRN (Rec: 07/06/20 14:22 LRN [id number]) OP-PT Subjective Patient Comments Patient Comments Frustrated over loss of internet service. States over the weekend he helped Nasreen lift grocery bags and strained his L shoulder, but felt better the next day. PT-OP-E Functional Tests Start: 05/07/20 18:05 Freq: Status: Active Protocol: Document 06/16/20 10:34 LRN (Rec: 06/16/20 11:23 LRN [id number]) Functional Tests Apley's Scratch Test Action 2- Left T2 Action 2- Right T4 Action 3- Left Lateral buttock Action 3- Right T12 PT-OP-H Neuro Start: 05/07/20 18:05 Freq: Status: Active Protocol: Document 07/06/20 13:39 LRN (Rec: 07/06/20 14:22 LRN [id number]) Vital Signs Pulse Post ex Pulse at Rest (bpm) 68 Pulse Assessment Method Pulse Ox/Monitor Resting Pulse at Rest (bpm) 73 Pulse Assessment Method Pulse Ox/Monitor Blood Pressure Post ex sitting Blood Pressure (90/60-120/80 mmHg) 118/58 L Blood Pressure Source Manual Cuff,Right Upper Extremity Sitting Blood Pressure (90/60-120/80 mmHg) 126/70 H Blood Pressure Source Manual Cuff,Right Upper Extremity Oxygen Pulse Oximetry at Rest (%) (95-100 %) 98 Oxygen Delivery Method Room Air Comments Vital Signs Comments BP/HR decreased after exercise . O2 same. PT-OP-J Posture/Palpation/Skin Start: 05/07/20 18:05 Freq: Status: Active Protocol: Document 05/12/20 11:20 LRN (Rec: 05/12/20 17:06 LRN [id number]) Posture Evaluation Position Standing Evaluation View All positions Head/C-Spine Posture Forward Head Shoulder Posture (L) Forward,(R) Forward Shoulder Subluxation Degree (L) < 1 Finger wide Shoulder Subluxation Position (L) Anterior Scapula Posture (L) Rotated Up Palpation Assessment Location L shoulder Palpation Location L shoulder Palpation Findings Tenderness PT-OP-K Range of Motion Start: 05/07/20 18:05 Freq: Status: Active Protocol: Document 07/03/20 13:39 LRN (Rec: 07/03/20 14:48 LRN [id number]) Shoulder Goniometric Range of Motion Shoulder Right Passive Shoulder ROM WFL Yes Testing Position Supine Flexion 158 Abduction 120 External Rotation at 90 degrees 90 Abduction External Rotation at 45 degrees 85 Abduction Internal Rotation 55 Left Passive Shoulder ROM WFL No Testing Position Supine Flexion 118 Abduction 70 External Rotation at 90 degrees 37 Abduction External Rotation at 45 degrees 38 Abduction Internal Rotation 50 Right Active Shoulder ROM WFL Yes Testing Position Sitting Flexion 150 Extension 48 Abduction 165 Comments AB is pure AB Left Active Shoulder ROM WFL No Testing Position Sitting Flexion 85 Extension 27 Abduction 60 Comments AB is pure AB PT-OP-M Strength Start: 05/07/20 18:05 Freq: Status: Active Protocol: Document 05/12/20 11:20 LRN (Rec: 05/12/20 17:06 LRN [id number]) Shoulder Strength Shoulder Manual Muscle Testing Right Comments Flex, AB, ER, IR strength is 5 /5. Left Flexion 2 Poor Extension 2+ Poor+ Abduction (C5) 2- Poor- External Rotation 2- Poor- Internal Rotation 2 Poor PT-OP-Q Treatments Start: 05/07/20 18:05 Freq: Status: Active Protocol: Document 07/06/20 13:39 LRN (Rec: 07/06/20 14:22 LRN [id number]) Cardio Equipment Upper Body Ergometer (UBE) Duration (Minutes) 10 RPM 80 Seat Position 12 Height 4 Other Extra time taken for blood pressure checks Therapeutic Exercises Sitting Exercises Windshield wipe forearm on table Sitting Exercise Name Windshield wipe Reps/Minutes 2' PNF D2 Sitting Exercise Name D2 Reps/Minutes 4' PNF D1 Sitting Exercise Name D1 Reps/Minutes 4' Shoulder flex table reach Sitting Exercise Name Flex stretch Equipment Used Plinth Jordan Sitting Exercise Name Shoulder Flex, AB active assisted & passive Side left Reps/Minutes 6' Standing Exercises Window wash ex Standing Exercise Name Window Wash w/scap depression on max reach Reps/Minutes 4' PT-OP-T Assessment and Plan Start: 05/07/20 18:05 Freq: Status: Active Protocol: Document 07/06/20 13:39 LRN (Rec: 07/06/20 14:22 LRN [id number]) Physical Therapy Assessment Goals Five Impairment Decreased L shoulder strength limiting cooking Short Term Goal (STG) Increase L shoulder strength to 3+/5 STG Duration 07/31/20 Brass Reclaimer Goal (LTG) Pt will be able to cook/lift with his pots (3#) with minimal difficulty. LTG Duration 09/09/20 Four Impairment L shoulder pain that is constant, rated 4/10 Short Term Goal (STG) Pt will be educated in methods to reduce his sleeping on his L shoulder, and will reduce the need for Tylenol on a daily basis. STG Duration 09/09/20 (06/23/20: MET GOAL) Fpc Goal (LTG) Decrease L shoulder pain to no greater than 1/10 with ability to sleep at night without the use of medications . (06/16/20: Using sleep med to help shut the brain off (uses 1/2), not because of pain. LTG Duration 09/09/20 (06/23/20: MET GOAL) Three Impairment Decreased L shoulder strength Short Term Goal (STG) Pt will be able to report increased use of his L arm with tolerable discomfort. STG Duration 06/23/20 (06/16/20: MET GOAL) Fpc Goal (LTG) Improve L shoulder strength to no less than 4/5 with pt able to move around in bed without difficulty and mild pain that will not hinder his sleep. LTG Duration 09/09/20 (06/16/20 MET GOAL for moving in bed w/o pain/ sleep hinderance) One Impairment Lacks appropriate self care HEP Fpc Goal (LTG) Pt will be independent in a self care HEP for L shoulder/ scapula/trunk strengthening. LTG Duration 09/09/20 Two Impairment Decreased L shoulder mobility Short Term Goal (STG) Pt will be able to lift his arm to shoulder hgt to improve ability for dressing. (07/03/20: L Shoulder flex is 85 degs). STG Duration 06/23/20 (07/03/20: Progressing ) Fpc Goal (LTG) Pt will be able to lift his L arm overhead for ease of putting his shirts on. LTG Duration 09/09/20 Assessment Summary Assessment BP was higher today at 126/70, but was less after aerobic ex working not very hard ex today. Pt performs table reach exer well. Appears to have a fair understanding of active sitting shoulder ER ( windshield wipe) on table exercise. May need review. Physical Therapy Plan Frequency and Duration Frequency of Treatment 2x/Week Plan of Care Start Date 05/12/20 Plan of Care End Date 09/09/20 Next Visit Focus/Plan Next Note Type Treatment Note Next Visit Plan Progress L scapula/shoulder mobility and strength and progression of his HEP. Due to recent results from chief ii dispatcher visit, pt has A. Flutter; therefore will check BP before and after UBE. Monitor as needed cardiovascular signs (for elevated BP). Pt should ex no greater than somewhat hard BEAUCHAMP level. Monitor for pt in distress. Focus on improving strength of scapular depressors. Progress L shoulder ROM& strengthening ex's with HEP to promote pt self care of removal of shirts, add elbow strengthening &, include scapular stabilizing ex's ( shoulder depression). End with ice as needed for pain, otherwise pt to do at home.
[2020-07-10 13:37] VITALS: BP 108/76; BP 128/68
--- NOTE | 2020-07-10 15:55 | PT.OTN ---
Current Diagnoses Hemiplegia, unspecified affecting left nondominant side (07/10/20) Cerebral infarction due to unspecified occlusion or stenosis of right middle cerebral artery (07/10/20) Muscle weakness (generalized) (07/10/20) Abnormal posture (07/10/20) Physical Therapy Treatment Note PT-OP-A Visit Information Start: 05/07/20 18:05 Freq: Status: Active Protocol: Document 07/10/20 13:37 LRN (Rec: 07/10/20 14:27 LRN [id number]) Out-Patient Physical Therapy Visit Information Visit Information Visit Type Treatment Note Visit Note 2 after PN Visit Start Time 13:37 Visit Stop Time 14:25 Total Visit Minutes 48 Visit Number 12 Evaluation Information Evaluation Date 05/12/20 Precautions Precautions Possible subluxed L shoulder Recent carotid artery surgery CHF hx & Diabetes type II Arrhythmia of the heart. PT-OP-B Current Condition Start: 05/07/20 18:05 Freq: Status: Active Protocol: Document 05/12/20 11:20 LRN (Rec: 05/12/20 12:27 LRN [id number]) Current Condition History of Current Condition Onset Date 01/03/2020 History of Current Condition Pt had a surgery at [facility] ([place]) and after surgery plaque from the carotid artery broke loose causing a stroke in which he states he was totally paralyzed on the L side. He was in [facility] for 10 days and was moved to [facility] in [facility] for inpt rehab for 1 month, because his partner lives in [place]. During his stroke recovery he had rolled away from his L side, leaving the L arm behind and causing severe pain in the shoulder. Pt states he was told he subluxed the L shoulder. Now his only problem seems to be L shoulder pain, today rated 2/ 10. He is looking forward to doing outpt PT to relieve pain and strengthen up his shoulder. States at night the pain wakes him up and overall the pain is annoying and constant unless taking Tylenol , which helps to reduce his pain. He takes ASA daily and a blood thinner medication due to CHF and A Fib. Prior Treatments and Tests 1 month inpt rehab at [facility] in [place], and had a brief period of home health PT. Future Testing and Treatments Planned Cardioconversion planned in 1 month in [place]. Treatment Goals Patient/Caregiver Goals Pt goal is to strength his L shoulder, regain L arm function, and become painfree. Prior Functional Status Baseline Function- ADL's Independent Baseline Function- Mobility Independent Baseline Function- Gait Normal Baseline Function- Recreation/Hobbies Exercises and lifted free weights, walked for exercise. 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 Current Functional Impairments (Reported) Functional Limitations- ADL's Independent with ADLs. Sleeps on L side. Functional Limitations- Mobility/Gait Pt denies ambulatory dysfunction. He denies decreased balance. 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 Functional Limitations- Other Must put tops on reaching into arm holes rather than lifting arms overhead. He can only partly reach up with his L arm 1/2 way to shoulder hgt. Not able to lift, can help carry groceries. Unknown lifting limit. Personal Factors Other Personal Factors That May Effect Lives [place] with partner. Therapy/Recovery Recovering from carotid artery surgery with secondary post stroke. Diabetes type II controlled by Metformin. CHF, heart arrhythmia with planned cardioconversion in 1 month. PT-OP-C Subjective Start: 05/07/20 18:05 Freq: Status: Active Protocol: Document 07/10/20 13:37 LRN (Rec: 07/10/20 14:27 LRN [id number]) OP-PT Subjective Patient Comments Patient Comments L shoulder is a little sore with pulling or if putting too much weight into it; rated 2/ 10 that is intermittent. Carrying recyclables out the house and closing the car door caused pain. PT-OP-E Functional Tests Start: 05/07/20 18:05 Freq: Status: Active Protocol: Document 06/16/20 10:34 LRN (Rec: 06/16/20 11:23 LRN [id number]) Functional Tests Apley's Scratch Test Action 2- Left T2 Action 2- Right T4 Action 3- Left Lateral buttock Action 3- Right T12 PT-OP-H Neuro Start: 05/07/20 18:05 Freq: Status: Active Protocol: Document 07/10/20 13:37 LRN (Rec: 07/10/20 14:27 LRN [id number]) Vital Signs Blood Pressure Post ex sitting Blood Pressure (90/60-120/80 mmHg) 128/68 H Blood Pressure Source Manual Cuff,Right Upper Extremity Sitting Blood Pressure (90/60-120/80 mmHg) 108/76 Blood Pressure Source Manual Cuff,Right Upper Extremity PT-OP-J Posture/Palpation/Skin Start: 05/07/20 18:05 Freq: Status: Active Protocol: Document 05/12/20 11:20 LRN (Rec: 05/12/20 17:06 LRN [id number]) Posture Evaluation Position Standing Evaluation View All positions Head/C-Spine Posture Forward Head Shoulder Posture (L) Forward,(R) Forward Shoulder Subluxation Degree (L) < 1 Finger wide Shoulder Subluxation Position (L) Anterior Scapula Posture (L) Rotated Up Palpation Assessment Location L shoulder Palpation Location L shoulder Palpation Findings Tenderness PT-OP-K Range of Motion Start: 05/07/20 18:05 Freq: Status: Active Protocol: Document 07/10/20 13:37 LRN (Rec: 07/10/20 14:27 LRN [id number]) Shoulder Goniometric Range of Motion Shoulder Left Active Shoulder ROM WFL No Comments Sitting Passive flex w/Jordan is 120 deg's PT-OP-M Strength Start: 05/07/20 18:05 Freq: Status: Active Protocol: Document 05/12/20 11:20 LRN (Rec: 05/12/20 17:06 LRN [id number]) Shoulder Strength Shoulder Manual Muscle Testing Right Comments Flex, AB, ER, IR strength is 5 /5. Left Flexion 2 Poor Extension 2+ Poor+ Abduction (C5) 2- Poor- External Rotation 2- Poor- Internal Rotation 2 Poor PT-OP-Q Treatments Start: 05/07/20 18:05 Freq: Status: Active Protocol: Document 07/10/20 13:37 LRN (Rec: 07/10/20 14:27 LRN [id number]) Cardio Equipment Upper Body Ergometer (UBE) Duration (Minutes) 10 RPM 75 Seat Position 12 Height 4 Other Extra time taken for blood pressure checks Therapeutic Exercises Supine Exercises Pec stretch Supine Exercise Name Pec Stretch - Hand on forehead > top of head Side left Reps/Minutes 3' Comments + response Shoulder Flex Supine Exercise Name Active stretch with cane Side left Reps/Minutes 4' PROM L shoulder Supine Exercise Name PROM L shoulder Side left Reps/Minutes 8' Comments ROM taken Sitting Exercises PNF D2 Sitting Exercise Name (Left w/R assist) D2 Wood Chop Resistance Lev 2 Reps/Minutes 10x 3 Comments Extra time taken for finding position of max tolerance PNF D1 Sitting Exercise Name (Left w/R assist) D1 Golf Swing Resistance Lev 2 Tied to SEat support of Leg Curl/Ext Reps/Minutes 10x 2 Comments Extra time taken for finding position of max tolerance Jordan Sitting Exercise Name Shoulder Flex, AB active assisted & passive Side left Reps/Minutes 6' Standing Exercises Row w/Scapular pinch Standing Exercise Name L>R Row w/scapular pinch Side bilateral Reps/Minutes 10x 2, 10x Comments Physical cuing to L Rhomboids throughout the ex CKC strengthening Standing Exercise Name Fitter Board w/smallest band Reps/Minutes 1' x 3 Comments Extra time taken for training and set up. Self-Care/Home Management Treatment Activities Self-Care/Home Management Activities Discussed & recommended pt use cryotherapy to his L shoulder if he causes discomfort. PT-OP-T Assessment and Plan Start: 05/07/20 18:05 Freq: Status: Active Protocol: Document 07/10/20 13:37 LRN (Rec: 07/10/20 14:27 LRN [id number]) Physical Therapy Assessment Goals Five Impairment Decreased L shoulder strength limiting cooking Short Term Goal (STG) Increase L shoulder strength to 3+/5 STG Duration 07/31/20 Shelter Goal (LTG) Pt will be able to cook/lift with his pots (3#) with minimal difficulty. LTG Duration 09/09/20 Three Impairment Decreased L shoulder strength Short Term Goal (STG) Pt will be able to report increased use of his L arm with tolerable discomfort. STG Duration 06/23/20 (06/16/20: MET GOAL) Shelter Goal (LTG) Improve L shoulder strength to no less than 4/5 with pt able to move around in bed without difficulty and mild pain that will not hinder his sleep. LTG Duration 09/09/20 (06/16/20 MET GOAL for moving in bed w/o pain/ sleep hinderance) One Impairment Lacks appropriate self care HEP Shelter Goal (LTG) Pt will be independent in a self care HEP for L shoulder/ scapula/trunk strengthening. LTG Duration 09/09/20 Two Impairment Decreased L shoulder mobility Short Term Goal (STG) Pt will be able to lift his arm to shoulder hgt to improve ability for dressing. (07/03/20: L Shoulder flex is 85 degs). STG Duration 06/23/20 (07/03/20: Progressing ) Shelter Goal (LTG) Pt will be able to lift his L arm overhead for ease of putting his shirts on. LTG Duration 09/09/20 Assessment Summary Assessment Pt tolerated CKC ex well with only complaints of fatigue, no pain. He does get pain with L shoulder ROM, very restricted with flexion. Pec Minor and Major appear to be inhibiting shoulder mobility. He had a + response to Pec stretch. 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 Flutter; therefore will check BP before and after UBE. Monitor as needed cardiovascular signs (for elevated BP). Pt should ex no greater than somewhat hard BEAUCHAMP level. Monitor for pt in distress. Add lifting exercise (cooking) and start nikki PNF patterns without resistance, continue PNF strengthening. Progress L scapula/shoulder mobility and strength and progression of his HEP, prior to pending surgery. Focus on improving strength of scapular depressors. Progress L shoulder ROM& strengthening ex's with HEP to promote pt self care of removal of shirts, add elbow strengthening &, include scapular stabilizing ex's ( shoulder depression). End with ice as needed for pain, otherwise pt to do at home.
[2020-07-20 13:38] VITALS: BP 126/68; BP 136/70
--- NOTE | 2020-07-20 17:02 | PT.OTN ---
Current Diagnoses Hemiplegia, unspecified affecting left nondominant side (07/20/20) Cerebral infarction due to unspecified occlusion or stenosis of right middle cerebral artery (07/20/20) Muscle weakness (generalized) (07/20/20) Abnormal posture (07/20/20) Physical Therapy Treatment Note PT-OP-A Visit Information Start: 05/07/20 18:05 Freq: Status: Active Protocol: Document 07/20/20 13:38 LRN (Rec: 07/20/20 14:23 LRN [id number]) Out-Patient Physical Therapy Visit Information Visit Information Visit Type Treatment Note Visit Note 3 after PN Visit Start Time 13:38 Visit Stop Time 14:20 Total Visit Minutes 42 Visit Number 13 Evaluation Information Evaluation Date 05/12/20 Precautions Precautions Possible subluxed L shoulder Recent carotid artery surgery CHF hx & Diabetes type II Arrhythmia of the heart. PT-OP-B Current Condition Start: 05/07/20 18:05 Freq: Status: Active Protocol: Document 05/12/20 11:20 LRN (Rec: 05/12/20 12:27 LRN [id number]) Current Condition History of Current Condition Onset Date 01/03/2020 History of Current Condition Pt had a surgery at [facility] ([place]) and after surgery plaque from the carotid artery broke loose causing a stroke in which he states he was totally paralyzed on the L side. He was in [facility] for 10 days and was moved to [facility] in [facility] for inpt rehab for 1 month, because his partner lives in [place]. During his stroke recovery he had rolled away from his L side, leaving the L arm behind and causing severe pain in the shoulder. Pt states he was told he subluxed the L shoulder. Now his only problem seems to be L shoulder pain, today rated 2/ 10. He is looking forward to doing outpt PT to relieve pain and strengthen up his shoulder. States at night the pain wakes him up and overall the pain is annoying and constant unless taking Tylenol , which helps to reduce his pain. He takes ASA daily and a blood thinner medication due to CHF and A Fib. Prior Treatments and Tests 1 month inpt rehab at [facility] in [place], and had a brief period of home health PT. Future Testing and Treatments Planned Cardioconversion planned in 1 month in [place]. Treatment Goals Patient/Caregiver Goals Pt goal is to strength his L shoulder, regain L arm function, and become painfree. Prior Functional Status Baseline Function- ADL's Independent Baseline Function- Mobility Independent Baseline Function- Gait Normal Baseline Function- Recreation/Hobbies Exercises and lifted free weights, walked for exercise. 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 Current Functional Impairments (Reported) Functional Limitations- ADL's Independent with ADLs. Sleeps on L side. Functional Limitations- Mobility/Gait Pt denies ambulatory dysfunction. He denies decreased balance. 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 Functional Limitations- Other Must put tops on reaching into arm holes rather than lifting arms overhead. He can only partly reach up with his L arm 1/2 way to shoulder hgt. Not able to lift, can help carry groceries. Unknown lifting limit. Personal Factors Other Personal Factors That May Effect Lives [place] with partner. Therapy/Recovery Recovering from carotid artery surgery with secondary post stroke. Diabetes type II controlled by Metformin. CHF, heart arrhythmia with planned cardioconversion in 1 month. PT-OP-C Subjective Start: 05/07/20 18:05 Freq: Status: Active Protocol: Document 07/20/20 13:38 LRN (Rec: 07/20/20 14:23 LRN [id number]) OP-PT Subjective Patient Comments Patient Comments Concerned of COVID 19 new outbreak across country. Today feels okay, but nervous over outbreak. Shoulder hurts when unsupported. Cardiology appt on 08/04/20. PT-OP-E Functional Tests Start: 05/07/20 18:05 Freq: Status: Active Protocol: Document 06/16/20 10:34 LRN (Rec: 06/16/20 11:23 LRN [id number]) Functional Tests Apley's Scratch Test Action 2- Left T2 Action 2- Right T4 Action 3- Left Lateral buttock Action 3- Right T12 PT-OP-H Neuro Start: 05/07/20 18:05 Freq: Status: Active Protocol: Document 07/20/20 13:38 LRN (Rec: 07/20/20 14:23 LRN [id number]) Vital Signs Blood Pressure Post ex sitting Blood Pressure (90/60-120/80 mmHg) 126/68 H Blood Pressure Source Manual Cuff,Right Upper Extremity Sitting Blood Pressure (90/60-120/80 mmHg) 136/70 H Blood Pressure Source Manual Cuff,Right Upper Extremity PT-OP-J Posture/Palpation/Skin Start: 05/07/20 18:05 Freq: Status: Active Protocol: Document 05/12/20 11:20 LRN (Rec: 05/12/20 17:06 LRN [id number]) Posture Evaluation Position Standing Evaluation View All positions Head/C-Spine Posture Forward Head Shoulder Posture (L) Forward,(R) Forward Shoulder Subluxation Degree (L) < 1 Finger wide Shoulder Subluxation Position (L) Anterior Scapula Posture (L) Rotated Up Palpation Assessment Location L shoulder Palpation Location L shoulder Palpation Findings Tenderness PT-OP-K Range of Motion Start: 05/07/20 18:05 Freq: Status: Active Protocol: Document 07/20/20 13:38 LRN (Rec: 07/20/20 14:23 LRN [id number]) Shoulder Goniometric Range of Motion Shoulder Left Passive Comments Sitting Passive flex w/Jordan is 125 deg's Left Active Shoulder ROM WFL No Testing Position Sitting Flexion 90 Abduction 35 Comments Sitting Passive (see PROM) PT-OP-M Strength Start: 05/07/20 18:05 Freq: Status: Active Protocol: Document 05/12/20 11:20 LRN (Rec: 05/12/20 17:06 LRN [id number]) Shoulder Strength Shoulder Manual Muscle Testing Right Comments Flex, AB, ER, IR strength is 5 /5. Left Flexion 2 Poor Extension 2+ Poor+ Abduction (C5) 2- Poor- External Rotation 2- Poor- Internal Rotation 2 Poor PT-OP-Q Treatments Start: 05/07/20 18:05 Freq: Status: Active Protocol: Document 07/20/20 13:38 LRN (Rec: 07/20/20 14:23 LRN [id number]) Cardio Equipment Upper Body Ergometer (UBE) Duration (Minutes) 10 RPM 75 Seat Position 12 Height 4 Other Extra time taken for blood pressure checks Therapeutic Exercises Sitting Exercises Jordan Sitting Exercise Name Shoulder Flex, AB active assisted & passive Side left Reps/Minutes 6' Standing Exercises Wall Push up Standing Exercise Name Feet 16 from wall Reps/Minutes To fatigue Squat lift Standing Exercise Name Moving pot fro table to stove Side bilateral Resistance 4# Reps/Minutes 3' PT-OP-T Assessment and Plan Start: 05/07/20 18:05 Freq: Status: Active Protocol: Document 07/20/20 13:38 LRN (Rec: 07/20/20 14:23 LRN [id number]) Physical Therapy Assessment Goals Five Impairment Decreased L shoulder strength limiting cooking Short Term Goal (STG) Increase L shoulder strength to 3+/5 STG Duration 07/31/20 Take Away Worker Goal (LTG) Pt will be able to cook/lift with his pots (3#) with minimal difficulty. LTG Duration 09/09/20 (07/20/20: MET GOAL ) Three Impairment Decreased L shoulder strength Short Term Goal (STG) Pt will be able to report increased use of his L arm with tolerable discomfort. STG Duration 06/23/20 (06/16/20: MET GOAL) Take Away Worker Goal (LTG) Improve L shoulder strength to no less than 4/5 with pt able to move around in bed without difficulty and mild pain that will not hinder his sleep. LTG Duration 09/09/20 (06/16/20 MET GOAL for moving in bed w/o pain/ sleep hinderance) One Impairment Lacks appropriate self care HEP Half-Way Goal (LTG) Pt will be independent in a self care HEP for L shoulder/ scapula/trunk strengthening. LTG Duration 09/09/20 Two Impairment Decreased L shoulder mobility Short Term Goal (STG) Pt will be able to lift his arm to shoulder hgt to improve ability for dressing. (07/03/20: L Shoulder flex is 90 degs). STG Duration 06/23/20 (07/20/20: MET GOAL) Take Away Worker Goal (LTG) Pt will be able to lift his L arm overhead for ease of putting his shirts on. LTG Duration 09/09/20 (07/20/20: MET GOAL ) Progress Towards Goals Progress Comments MET LTG#5 of lifting 3# pot with minimal difficulty. Pt is able to lift 4# without difficulty. MET STG & LTG #2. Assessment Summary Assessment Pt able to remove sweatshirt with some difficulty, but pt feels it is mildly difficult. He primarily is wanting to strengthen his L UE to be able to get on all 4's to take care of dog. Pt is having less pain with active L shoulder flexion. Physical Therapy Plan Frequency and Duration Frequency of Treatment 2x/Week Plan of Care Start Date 05/12/20 Plan of Care End Date 09/09/20 Next Visit Focus/Plan Next Note Type Treatment Note Next Visit Plan Add WBing ex for all 4's positioning (shuttle recovery, fitter, and wall push ups. 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 Flutter; therefore will check BP before and after UBE. Monitor as needed cardiovascular signs (for elevated BP). Cardiology appt on 08/04/20 to discuss ablation surgery. Pt should ex no greater than somewhat hard BEAUCHAMP level. Monitor for pt in distress. Progress L shoulder ROM & progress strengthening of nikki PNF patterns with resistance when tolerated. Progress L scapula /shoulder mobility and strength and progression of his HEP, prior to pending ablation surgery. Focus on improving strength of scapular depressors and WBing in LUE. Progress L elbow strengthening &, include scapular stabilizing ex's (including shoulder depression). End with ice as needed for pain, otherwise pt to do at home.
[2020-07-31 14:16] VITALS: BP 126/68; BP 130/74; BP 130/76; PULSE 51; PULSE 83; PULSE 85; O2SAT 98
--- NOTE | 2020-07-31 16:43 | PT.OTN ---
Current Diagnoses Hemiplegia, unspecified affecting left nondominant side (07/31/20) Cerebral infarction due to unspecified occlusion or stenosis of right middle cerebral artery (07/31/20) Muscle weakness (generalized) (07/31/20) Abnormal posture (07/31/20) Physical Therapy Treatment Note PT-OP-A Visit Information Start: 05/07/20 18:05 Freq: Status: Active Protocol: Document 07/31/20 14:16 LRN (Rec: 07/31/20 15:06 LRN [id number]) Out-Patient Physical Therapy Visit Information Visit Information Visit Type Treatment Note Visit Start Time 14:15 Visit Stop Time 15:06 Total Visit Minutes 51 Visit Number 14 Evaluation Information Evaluation Date 05/12/20 Precautions Precautions Possible subluxed L shoulder Recent carotid artery surgery CHF hx & Diabetes type II Arrhythmia of the heart. PT-OP-B Current Condition Start: 05/07/20 18:05 Freq: Status: Active Protocol: Document 05/12/20 11:20 LRN (Rec: 05/12/20 12:27 LRN [id number]) Current Condition History of Current Condition Onset Date 01/03/2020 History of Current Condition Pt had a surgery at [facility] ([place]) and after surgery plaque from the carotid artery broke loose causing a stroke in which he states he was totally paralyzed on the L side. He was in [facility] for 10 days and was moved to [facility] in [facility] for inpt rehab for 1 month, because his partner lives in [place]. During his stroke recovery he had rolled away from his L side, leaving the L arm behind and causing severe pain in the shoulder. Pt states he was told he subluxed the L shoulder. Now his only problem seems to be L shoulder pain, today rated 2/ 10. He is looking forward to doing outpt PT to relieve pain and strengthen up his shoulder. States at night the pain wakes him up and overall the pain is annoying and constant unless taking Tylenol , which helps to reduce his pain. He takes ASA daily and a blood thinner medication due to CHF and A Fib. Prior Treatments and Tests 1 month inpt rehab at [facility] in [place], and had a brief period of home health PT. Future Testing and Treatments Planned Cardioconversion planned in 1 month in [place]. Treatment Goals Patient/Caregiver Goals Pt goal is to strength his L shoulder, regain L arm function, and become painfree. Prior Functional Status Baseline Function- ADL's Independent Baseline Function- Mobility Independent Baseline Function- Gait Normal Baseline Function- Recreation/Hobbies Exercises and lifted free weights, walked for exercise. 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 Current Functional Impairments (Reported) Functional Limitations- ADL's Independent with ADLs. Sleeps on L side. Functional Limitations- Mobility/Gait Pt denies ambulatory dysfunction. He denies decreased balance. 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 Functional Limitations- Other Must put tops on reaching into arm holes rather than lifting arms overhead. He can only partly reach up with his L arm 1/2 way to shoulder hgt. Not able to lift, can help carry groceries. Unknown lifting limit. Personal Factors Other Personal Factors That May Effect Lives [place] with partner. Therapy/Recovery Recovering from carotid artery surgery with secondary post stroke. Diabetes type II controlled by Metformin. CHF, heart arrhythmia with planned cardioconversion in 1 month. PT-OP-C Subjective Start: 05/07/20 18:05 Freq: Status: Active Protocol: Document 07/31/20 14:16 LRN (Rec: 07/31/20 15:06 LRN [id number]) OP-PT Subjective Patient Comments Patient Comments Feeling tired, seeing gas furnace installer in 4 days (). Not taking BP or HR at home. Not feeling heart flutter lately. Is walking around the block daily, gets tired, but not winded. Was getting up from a chair and pushing himself up and his L arm gave way causing shoulder pain. PT-OP-E Functional Tests Start: 05/07/20 18:05 Freq: Status: Active Protocol: Document 06/16/20 10:34 LRN (Rec: 06/16/20 11:23 LRN [id number]) Functional Tests Apley's Scratch Test Action 2- Left T2 Action 2- Right T4 Action 3- Left Lateral buttock Action 3- Right T12 PT-OP-H Neuro Start: 05/07/20 18:05 Freq: Status: Active Protocol: Document 07/31/20 14:16 LRN (Rec: 07/31/20 15:06 LRN [id number]) Vital Signs Pulse Post ex Pulse at Rest (bpm) 51 Pulse Assessment Method Pulse Ox/Monitor Resting Pulse at Rest (bpm) 85 Pulse Assessment Method Pulse Ox/Monitor Blood Pressure Post ex sitting Blood Pressure (90/60-120/80 mmHg) 126/68 H Blood Pressure Source Manual Cuff,Right Upper Extremity Sitting Blood Pressure (90/60-120/80 mmHg) 130/76 H Blood Pressure Source Manual Cuff,Right Upper Extremity PT-OP-J Posture/Palpation/Skin Start: 05/07/20 18:05 Freq: Status: Active Protocol: Document 05/12/20 11:20 LRN (Rec: 05/12/20 17:06 LRN [id number]) Posture Evaluation Position Standing Evaluation View All positions Head/C-Spine Posture Forward Head Shoulder Posture (L) Forward,(R) Forward Shoulder Subluxation Degree (L) < 1 Finger wide Shoulder Subluxation Position (L) Anterior Scapula Posture (L) Rotated Up Palpation Assessment Location L shoulder Palpation Location L shoulder Palpation Findings Tenderness PT-OP-K Range of Motion Start: 05/07/20 18:05 Freq: Status: Active Protocol: Document 07/31/20 14:16 LRN (Rec: 07/31/20 15:06 LRN [id number]) Shoulder Goniometric Range of Motion Shoulder Left Passive Comments Sitting Passive flex w/Jordan is 114 deg's. Wrist Goniometric Range of Motion Wrist Right Wrist ROM WFL Yes Extension Active (degrees) 68 Extension Passive (degrees) 90 Left Extension Active (degrees) 51 Extension Passive (degrees) 67 ROM Limitations Comments L wrist flex, pron/sup are WNL . L UD/RD is ~ 80% of normal. PT-OP-M Strength Start: 05/07/20 18:05 Freq: Status: Active Protocol: Document 05/12/20 11:20 LRN (Rec: 05/12/20 17:06 LRN [id number]) Shoulder Strength Shoulder Manual Muscle Testing Right Comments Flex, AB, ER, IR strength is 5 /5. Left Flexion 2 Poor Extension 2+ Poor+ Abduction (C5) 2- Poor- External Rotation 2- Poor- Internal Rotation 2 Poor PT-OP-Q Treatments Start: 05/07/20 18:05 Freq: Status: Active Protocol: Document 07/31/20 14:16 LRN (Rec: 07/31/20 15:06 LRN [id number]) Gym Equipment Shuttle Rebound 1 Exercise Details CKC elbow ext, shoulder ~80 deg's flex Reps/Duration 10x Comments A few extra reps to determine tolerance. Extra time taken for set up. Therapeutic Exercises Sitting Exercises Jordan Sitting Exercise Name Shoulder Flex, AB active assisted & passive Side left Reps/Minutes 10' Comments Extra time taken for blood pressure and HR checks, & ROM msmt Standing Exercises fitter board CKC strengthening Standing Exercise Name Fitter board: side to side and forward push Comments Extra time taken for sit rest Wrist circles Standing Exercise Name Wrist circles Reps/Minutes 4' Wrist ext stretch Standing Exercise Name WBing into hands Side bilateral Reps/Minutes 8'' CKC strengthening Standing Exercise Name See Shuttle Rebound ex Side bilateral Reps/Minutes 3' Comments Focus on WBing through LUE PT-OP-T Assessment and Plan Start: 05/07/20 18:05 Freq: Status: Active Protocol: Document 07/31/20 14:16 LRN (Rec: 07/31/20 15:06 LRN [id number]) Physical Therapy Assessment Goals Five Impairment Decreased L shoulder strength limiting cooking Short Term Goal (STG) Increase L shoulder strength to 3+/5 STG Duration 07/31/20 Senior Care Goal (LTG) Pt will be able to cook/lift with his pots (3#) with minimal difficulty. LTG Duration 09/09/20 (07/20/20: MET GOAL ) One Impairment Lacks appropriate self care HEP Card Assembler Goal (LTG) Pt will be independent in a self care HEP for L shoulder/ scapula/trunk strengthening. LTG Duration 09/09/20 Two Impairment Decreased L shoulder mobility Short Term Goal (STG) Pt will be able to lift his arm to shoulder hgt to improve ability for dressing. (07/03/20: L Shoulder flex is 90 degs). STG Duration 06/23/20 (07/20/20: MET GOAL) Card Assembler Goal (LTG) Pt will be able to lift his L arm overhead for ease of putting his shirts on. LTG Duration 09/09/20 (07/20/20: MET GOAL ) Progress Towards Goals Progress Towards Goals Slow Progress due to Medical Issues Assessment Summary Assessment Pt had decreased tolerance to exercise due to feeling fatigued to start. He denies symptoms of flutter of the heart throughout therapy. His blood pressure and pulse was less after exercise indicating poor cardiovascular response to exercise. Pt tolerated therapy well with fatigue after use of fitter board and to a lesser extent the shuttle rebounder for CKC strengthening of the L UE. Pt should wait to return to therapy after his gas furnace installer visit with possible recommendations as to PT rehab program. Physical Therapy Plan Frequency and Duration Frequency of Treatment 2x/Week Plan of Care Start Date 05/12/20 Plan of Care End Date 09/09/20 Next Visit Focus/Plan Next Note Type Treatment Note Next Visit Plan WBing ex (with support under palm due to lack of full L wrist extension) for all 4's positioning (shuttle recovery, fitter, and wall push ups. Due to results from gas furnace installer visit, pt has A. Flutter; therefore will check BP before and after UBE. Monitor as needed cardiovascular signs (for elevated BP). Cardiology appt on 08/04/20 to discuss ablation surgery. Hold endurance progression until after gas furnace installer appt. Progress L shoulder ROM & strengthening as tolerated. Add nikki PNF patterns with resistance when tolerated. Progress L scapula/shoulder mobility and strength and progression of his HEP, prior to pending ablation surgery. Focus on improving strength of scapular depressors and WBing in LUE. Progress L elbow strengthening &, include scapular stabilizing ex's (including shoulder depression). End with ice as needed for pain, otherwise pt to do at home.
--- NOTE | 2020-08-06 13:58 | PT-OP ANOTE ---
Message received by phone that pt is having heart flutter with walking 1/2 block. He is scheduled for ablation surgery and would like to know what the best course of action would be in regards to therapy. Returned call with message left for talking with the pt after 4p today by phone.
--- NOTE | 2020-08-07 14:53 | PT-OP ANOTE ---
Message left for pt to return call today to discuss possible DC from PT due to pending ablation surgery.
--- NOTE | 2020-08-07 14:56 | PT-OP ANOTE ---
Late Entry: Per PT pt appointment was canceled due to his report of fatigue and feeling of flutter of heart.
--- NOTE | 2020-08-13 09:42 | PT-OP ANOTE ---
Per phone converstation, the pt reports his cardiac ablation surgery was successful and he is feeling great. States he is to lay low and not do PT' for now. After discussion of his plans (follow up of surgery on 09/16/20), it was decided with pt in agreement to discharge from therapy for now and that when he is physically ready to return to therapy he will seek a new referral. Discussed recommendations to talk to MD regarding cardiac rehabilitation.
--- NOTE | 2020-08-13 17:31 | PT.OPDS ---
Current Diagnoses Hemiplegia, unspecified affecting left nondominant side (07/31/20) Cerebral infarction due to unspecified occlusion or stenosis of right middle cerebral artery (07/31/20) Muscle weakness (generalized) (07/31/20) Abnormal posture (07/31/20) Visit Care Team Role Provider Type Lio Chacko Attending Provider Non-Staff Family Provider Primary Care Provider Referring Provider Specialty: Family Practice Address: [address] [place] [address], [facility] Email: Visit Number Visit Number 14 Discharge Summary PT-OP-B Current Condition Start: 05/07/20 18:05 Freq: Status: Active Protocol: Document 05/12/20 11:20 LRN (Rec: 05/12/20 12:27 LRN [id number]) Current Condition History of Current Condition Onset Date 01/03/2020 History of Current Condition Pt had a surgery at [facility] ([place]) and after surgery plaque from the carotid artery broke loose causing a stroke in which he states he was totally paralyzed on the L side. He was in [facility] for 10 days and was moved to [facility] in [facility] for inpt rehab for 1 month, because his partner lives in [place]. During his stroke recovery he had rolled away from his L side, leaving the L arm behind and causing severe pain in the shoulder. Pt states he was told he subluxed the L shoulder. Now his only problem seems to be L shoulder pain, today rated 2/ 10. He is looking forward to doing outpt PT to relieve pain and strengthen up his shoulder. States at night the pain wakes him up and overall the pain is annoying and constant unless taking Tylenol , which helps to reduce his pain. He takes ASA daily and a blood thinner medication due to CHF and A Fib. Prior Treatments and Tests 1 month inpt rehab at [facility] in [place], and had a brief period of home health PT. Future Testing and Treatments Planned Cardioconversion planned in 1 month in [place]. Treatment Goals Patient/Caregiver Goals Pt goal is to strength his L shoulder, regain L arm function, and become painfree. Prior Functional Status Baseline Function- ADL's Independent Baseline Function- Mobility Independent Baseline Function- Gait Normal Baseline Function- Recreation/Hobbies Exercises and lifted free weights, walked for exercise. 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 Current Functional Impairments (Reported) Functional Limitations- ADL's Independent with ADLs. Sleeps on L side. Functional Limitations- Mobility/Gait Pt denies ambulatory dysfunction. He denies decreased balance. 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 Functional Limitations- Other Must put tops on reaching into arm holes rather than lifting arms overhead. He can only partly reach up with his L arm 1/2 way to shoulder hgt. Not able to lift, can help carry groceries. Unknown lifting limit. Personal Factors Other Personal Factors That May Effect Lives [place] with partner. Therapy/Recovery Recovering from carotid artery surgery with secondary post stroke. Diabetes type II controlled by Metformin. CHF, heart arrhythmia with planned cardioconversion in 1 month. PT-OP-C Subjective Start: 05/07/20 18:05 Freq: Status: Active Protocol: Document 08/13/20 09:52 LRN (Rec: 08/13/20 17:31 LRN [id number]) OP-PT Subjective Patient Comments Patient Comments Per phone conversation, the pt reports his cardiac ablation surgery was successful and he was feeling great. He is to lay low and not do PT for now . Together it was decided, pt agreeable, to discharge from PT and to return when he is better physically able to return. Pt will speak to his cardiac physician about doing cardiac rehabilitation before returning to physical therapy. PT-OP-E Functional Tests Start: 05/07/20 18:05 Freq: Status: Active Protocol: Document 06/16/20 10:34 LRN (Rec: 06/16/20 11:23 LRN [id number]) Functional Tests Apley's Scratch Test Action 2- Left T2 Action 2- Right T4 Action 3- Left Lateral buttock Action 3- Right T12 PT-OP-H Neuro Start: 05/07/20 18:05 Freq: Status: Active Protocol: Document 07/31/20 14:16 LRN (Rec: 07/31/20 15:06 LRN [id number]) Vital Signs Pulse Post ex Pulse at Rest (bpm) 51 Pulse Assessment Method Pulse Ox/Monitor Resting Pulse at Rest (bpm) 85 Pulse Assessment Method Pulse Ox/Monitor Blood Pressure Post ex sitting Blood Pressure (90/60-120/80 mmHg) 126/68 H Blood Pressure Source Manual Cuff,Right Upper Extremity Sitting Blood Pressure (90/60-120/80 mmHg) 130/76 H Blood Pressure Source Manual Cuff,Right Upper Extremity PT-OP-J Posture/Palpation/Skin Start: 05/07/20 18:05 Freq: Status: Active Protocol: Document 05/12/20 11:20 LRN (Rec: 05/12/20 17:06 LRN [id number]) Posture Evaluation Position Standing Evaluation View All positions Head/C-Spine Posture Forward Head Shoulder Posture (L) Forward,(R) Forward Shoulder Subluxation Degree (L) < 1 Finger wide Shoulder Subluxation Position (L) Anterior Scapula Posture (L) Rotated Up Palpation Assessment Location L shoulder Palpation Location L shoulder Palpation Findings Tenderness PT-OP-K Range of Motion Start: 05/07/20 18:05 Freq: Status: Active Protocol: Document 07/31/20 14:16 LRN (Rec: 07/31/20 15:06 LRN [id number]) Shoulder Goniometric Range of Motion Shoulder Left Passive Comments Sitting Passive flex w/Jordan is 114 deg's. Wrist Goniometric Range of Motion Wrist Right Wrist ROM WFL Yes Extension Active (degrees) 68 Extension Passive (degrees) 90 Left Extension Active (degrees) 51 Extension Passive (degrees) 67 ROM Limitations Comments L wrist flex, pron/sup are WNL . L UD/RD is ~ 80% of normal. PT-OP-M Strength Start: 05/07/20 18:05 Freq: Status: Active Protocol: Document 05/12/20 11:20 LRN (Rec: 05/12/20 17:06 LRN [id number]) Shoulder Strength Shoulder Manual Muscle Testing Right Comments Flex, AB, ER, IR strength is 5 /5. Left Flexion 2 Poor Extension 2+ Poor+ Abduction (C5) 2- Poor- External Rotation 2- Poor- Internal Rotation 2 Poor PT-OP-T Assessment and Plan Start: 05/07/20 18:05 Freq: Status: Active Protocol: Document 08/13/20 09:52 LRN (Rec: 08/13/20 17:31 LRN [id number]) Physical Therapy Assessment Goals Five Impairment Decreased L shoulder strength limiting cooking Short Term Goal (STG) Increase L shoulder strength to 3+/5 STG Duration 07/31/20 (08/13/20: Pt unavailable for final assessement) Senior Officer Goal (LTG) Pt will be able to cook/lift with his pots (3#) with minimal difficulty. LTG Duration 09/09/20 (07/20/20: MET GOAL ) Four Impairment L shoulder pain that is constant, rated 4/10 Short Term Goal (STG) Pt will be educated in methods to reduce his sleeping on his L shoulder, and will reduce the need for Tylenol on a daily basis. STG Duration 09/09/20 (06/23/20: MET GOAL) Senior Officer Goal (LTG) Decrease L shoulder pain to no greater than 1/10 with ability to sleep at night without the use of medications . (06/16/20: Using sleep med to help shut the brain off (uses 1/2), not because of pain. LTG Duration 09/09/20 (06/23/20: MET GOAL) Three Impairment Decreased L shoulder strength Short Term Goal (STG) Pt will be able to report increased use of his L arm with tolerable discomfort. STG Duration 06/23/20 (06/16/20: MET GOAL) Senior Officer Goal (LTG) Improve L shoulder strength to no less than 4/5 with pt able to move around in bed without difficulty and mild pain that will not hinder his sleep. LTG Duration 09/09/20 (06/16/20 MET GOAL for moving in bed w/o pain/ sleep hinderance) One Impairment Lacks appropriate self care HEP Fci Goal (LTG) Pt will be independent in a self care HEP for L shoulder/ scapula/trunk strengthening. (Pt has a shoulder/scapular HEP) LTG Duration 09/09/20 (08/13/20: Goal partially met pt unavailable for final assess) Two Impairment Decreased L shoulder mobility Short Term Goal (STG) Pt will be able to lift his arm to shoulder hgt to improve ability for dressing. (07/03/20: L Shoulder flex is 90 degs). STG Duration 06/23/20 (07/20/20: MET GOAL) Fci Goal (LTG) Pt will be able to lift his L arm overhead for ease of putting his shirts on. LTG Duration 09/09/20 (07/20/20: MET GOAL ) Assessment Summary Assessment Pt has made good improvement since the start of therapy. He has improved his L shoulder mobility, strength and function overall. He could benefit from further L arm strengthening as well as core strengthening, and aerobic conditioning if he is cardiovascularly stable. The pt is aware and will seek further therapy when he is more stable and able to participate in a PT rehabilitation program. The pt wanted to address LE weakness, gait and balance that could also be addressed at a later date. Physical Therapy Plan Discharge Physical Therapy Discharge Reasons Change in Medical Status Discharge Comments Pt had cardiac ablation surgery this week and is to hold PT for now. Pt MD follow up visit following surgery is 09/16/20. Pt's plan of care expires 09/09/20; therefore pt is being discharged from therapy until he is physically appropriate to continue PT. Pt is going to possibly seek cardiac rehabilitation prior to PT and will seek PT referral when he is ready to return to PT.
== END 2020-08-18 13:45 | disposition home or self-care (01) ==
LOC: PHYS 14:15
PROVIDERS: Family Provider Family Medicine; PCP Family Medicine; Referring Provider Family Medicine; Visit Provider Family Medicine
DX: I63.511 Cerebral infarction due to unspecified occlusion or stenosis of right middle cerebral artery (principal); G81.94 Hemiplegia, unspecified affecting left nondominant side; M62.81 Muscle weakness (generalized); R29.3 Abnormal posture
CPT/HCPCS: 97110; 97140; 97162; 97535

== ENCOUNTER 2021-03-16 11:37 | Inpatient (IN) | payer MEDICARE, SELFPAY ==
[2020-07-06 13:39] VITALS: O2SAT 98
[2020-07-31 14:16] VITALS: PULSE 51; PULSE 85
[2021-03-16] VITALS (11 sets, daily range): BP systolic 99–139; BP diastolic 46–85; PULSE 53–93; RESP 14–95; TEMP 36.4–37.4; O2SAT 94–99; BMI 27.0
[2021-03-16 12:52] LABS: Add Manual Diff / Slide Review NO; Basophils Absolute Auto 100 /uL (0-100); Basophils Percent Auto 0.3 % (0-2); Eosinophils Absolute Auto 0 /uL (0-450); Eosinophils Percent Auto 0.1 % (2-4); Hematocrit 37.7 % (41-53); Hemoglobin 12.8 g/dL (13.5-17.5); Lymphocytes Absolute Auto 1300 /uL (1100-4500); Lymphocytes Percent Auto 8.2 % (25-40); Mean Corpuscular HGB Conc 33.9 % (30-36); Mean Corpuscular Hemoglobin 29.1 PG (26-34); Mean Corpuscular Volume 85.9 fL (80-100); Monocytes Absolute Auto 1200 /uL (0-900); Monocytes Percent Auto 7.7 % (3-14); Neutrophils Absolute Auto 12800 /uL (1500-7000); Neutrophils Percent Auto 83.7 % (50-75); Platelet Count 231 X10^3/uL (150-400); Red Cell Distribution Width 14.8 % (11.6-14.8); White Blood Cell Count 15.4 X10^3/uL (4.5-11.0)
[2021-03-16 12:59] LABS: INR 1.3 (0.9-1.3); Prothrombin Time 14.2 SECONDS (10.1-12.7)
[2021-03-16 13:01] LABS: Alanine Aminotransferase 18 IU/L (<50); Albumin 4.4 g/dL (3.5-5.0); Albumin Globulin Ratio 1.3 (1.0-2.8); Alkaline Phosphatase 90 U/L (38-126); Aspartate Aminotransferase 20 IU/L (17-59); BUN Creatinine Ratio 15.6 (6-22); Bilirubin Total 0.9 mg/dL (0.2-1.3); Blood Urea Nitrogen 17 mg/dL (9-20); Calcium 9.1 mg/dL (8.4-10.2); Carbon Dioxide 24 mmol/L (22-32); Chloride 102 mmol/L (98-107); Estimated Glomerular Filt Rate > 60.0 mL/min (>60); Globulin 3.5 g/dL (1.7-4.1); Glucose 209 mg/dL (80-110); HEMOLYSIS < 15 (0-50); Lipase 69 U/L (23-300); Potassium 4.7 mmol/L (3.4-5.1); Sodium 134 mmol/L (137-145); Total Protein 7.9 g/dL (6.3-8.2)
[2021-03-16 14:29] LABS: Lactate (Lactic Acid) 1.4 mmol/L (0.7-2.1)
[2021-03-16 14:46] LABS: Procalcitonin 0.07 ng/mL (<0.5)
--- NOTE | 2021-03-16 14:52 | ED.GENADULT ---
HPI - General Adult <Latisha Jameson MD - Last Filed: 03/18/21 02:04> General Chief complaint: GI Bleed Stated complaint: cyst on lower back. painful. feeling rly tired Time Seen by Provider: 03/16/21 14:10 Source: patient Mode of arrival: Ambulatory History of Present Illness HPI narrative: General: Healthy appearing, in no acute distress. Able to give a complete and coherent history. Well-nourished well-developed HEENT: Moist mucous membranes, normal sclera with reactive pupils, Neck: No JVD, supple Respiratory: Lungs are clear to auscultation, no wheezing no rales no rhonchi. Full and symmetrical air movement Cardiac: Regular rate and rhythm no murmurs no bruits Abdomen: Soft, nontender, good bowel tones, no flank pain Skin: Warm and dry, no rashes Neurologic: Grossly neurologically intact with no obvious asymmetries or abnormalities Extremities: No trauma, well perfused Psych: Cooperative, appropriate insight and -[id number] gentleman with a history of prior stroke and mild left-sided persistent weakness currently on apixaban, history of atrial fibrillation status post ablation and type 2 diabetes who presents complaining of a ?cyst on his back? that has been bothering him for the last 48 hours. He was in the back this morning and noted that it began to bleed so he comes in for further evaluation. He notes that he has had increasing fatigue his last bowel movement was approximately 24 hours ago but he has not eaten very much in the last 2 days, he has had some chills developing today but initial temperature measured in the emergency department was not elevated. He describes no nausea or vomiting. Has a mild headache mild myalgias no change to his baseline neurologic status with mild left-sided weakness. Related Data Home Medications Medication Instructions Recorded Confirmed albuterol sulfate [ProAir HFA] 2 puff INHALATION Q6HR PRN 03/16/21 03/16/21 apixaban [Eliquis] 5 mg PO BID 03/16/21 03/16/21 atorvastatin 80 mg PO DAILY 03/16/21 03/16/21 diltiazem HCl [Cartia XT] 120 mg PO DAILY 03/16/21 03/16/21 empagliflozin [Jardiance] 10 mg PO DAILY 03/16/21 03/16/21 finasteride 5 mg PO DAILY 03/16/21 03/16/21 fluoxetine 20 mg PO DAILY 03/16/21 03/16/21 lisinopril 5 mg PO DAILY 03/16/21 03/16/21 metformin 1,000 mg PO BID 03/16/21 03/16/21 metoprolol succinate 100 mg PO DAILY 03/16/21 03/16/21 pantoprazole 40 mg PO DAILY 03/16/21 03/16/21 tramadol 50 mg PO Q6HR PRN 03/16/21 03/16/21 trazodone 50 mg PO BEDTIME 03/16/21 03/16/21 Allergies Allergy/AdvReac Type Severity Reaction Status Date / Time No Known Drug Allergies Allergy Verified 03/16/21 11:49 Review of Systems <Latisha Jameson MD - Last Filed: 03/18/21 02:04> Review of Systems Narrative: Remainder of complete review of systems is otherwise unremarkable except for that included in the HPI. Patient History <Latisha Jameson MD - Last Filed: 03/18/21 02:04> Medical History (Updated 03/17/21 @ 16:42 by Lucille Darling MD) History of atrial fibrillation History of stroke Type 2 diabetes mellitus Surgical History Status post placement of implantable loop recorder Family History Mother Cancer Father Myocardial infarction Black lung disease Social History household members: none Smoking Status: Former smoker alcohol intake: former Smoking Status: Former smoker alcohol intake frequency: 0-2 drinks per day Substance Use Type: does not use Exam <Latisha Jameson MD - Last Filed: 03/18/21 02:04> Narrative Exam Narrative: General: Appears to not feel well and significant pain in the perirectal area makes it difficult to sit but Able to give a complete and coherent history. Well-nourished well-developed HEENT: Moist mucous membranes, normal sclera with reactive pupils, Neck: No JVD, supple Respiratory: Lungs are clear to auscultation, no wheezing no rales no rhonchi. Full and symmetrical air movement Cardiac: Regular rate and rhythm no murmurs no bruits Abdomen: Soft, nontender, good bowel tones, no flank pain Skin: Warm and dry, no rashes Neurologic: Mild left-sided weakness arm and leg from prior stroke Perineal area: He has a 10 x 14 cm area of induration on the inner aspect of the right buttock that extends toward the anus with an area that does appear to be draining bloody purulence at discharge with a significant odor appreciated. Only mild erythema around the area of induration without spreading cellulitis Extremities: No trauma, well perfused Psych: Cooperative, appropriate insight and affect Initial Vital Signs Initial Vital Signs: Vital Signs Temperature 99.3 F 03/16/21 11:45 Pulse Rate 93 H 03/16/21 11:45 Respiratory Rate 14 03/16/21 11:45 Blood Pressure 139/63 03/16/21 11:45 Pulse Oximetry 97 03/16/21 11:45 <Jose G Yo DO - Last Filed: 03/17/21 03:01> Initial Vital Signs Initial Vital Signs: Vital Signs Temperature 99.3 F 03/16/21 11:45 Pulse Rate 93 H 03/16/21 11:45 Respiratory Rate 14 03/16/21 11:45 Blood Pressure 139/63 03/16/21 11:45 Pulse Oximetry 97 03/16/21 11:45 Course <Latisha Jameson MD - Last Filed: 03/18/21 02:04> Orders Ordered: Albuterol/Ipratropium (Albuterol/Ipratropium 3 Ml Ampul) 3 ml INH RTQ4HR PRN PRN Reason: Shortness Of Breath Last Admin: 03/17/21 15:54 Dose: 3 ml Documented by: ESTHER Atorvastatin Calcium (Atorvastatin 20 Mg Tablet) 80 mg PO DAILY [facility] Last Admin: 03/17/21 09:48 Dose: 80 mg Documented by: CRISTY Dextrose (Dextrose 50 % In Water 25 Gm/50 Ml Syringe) 25 gm IV PRN PRN PRN Reason: Hypoglycemia Diltiazem HCl (Diltiazem Cd 120 Mg Cap) 120 mg PO DAILY [facility] Last Admin: 03/17/21 09:48 Dose: 120 mg Documented by: CRISTY Docusate Sodium (Docusate 100 Mg Capsule) 100 mg PO BID [facility] Last Admin: 03/17/21 21:15 Dose: 100 mg Documented by: Admin: 03/17/21 09:50 Dose: 100 mg Documented by: CRISTY Finasteride (Finasteride 5 Mg Tablet) 5 mg PO DAILY [facility] Last Admin: 03/17/21 09:48 Dose: 5 mg Documented by: CRISTY Fluoxetine HCl (Fluoxetine 20 Mg Capsule) 20 mg PO DAILY [facility] Last Admin: 03/17/21 09:48 Dose: 20 mg Documented by: CRISTY Hydromorphone HCl (Hydromorphone 0.5 Mg Inj) 0.5 mg IV Q2H PRN PRN Reason: Pain, Moderate (4-6) Last Admin: 03/18/21 00:55 Dose: 0.5 mg Documented by: Admin: 03/17/21 22:48 Dose: 0.5 mg Documented by: Admin: 03/17/21 19:34 Dose: 0.5 mg Documented by: Admin: 03/17/21 16:35 Dose: 0.5 mg Documented by: Admin: 03/17/21 11:39 Dose: 0.5 mg Documented by: Admin: 03/17/21 00:51 Dose: 0.5 mg Documented by: YOVANI Metronidazole (Flagyl) 500 mg in 100 mls @ 100 mls/hr IV Q6H [facility] Last Infusion: 03/18/21 00:09 Dose: 0 mls/hr Documented by: Admin: 03/17/21 22:46 Dose: 100 mls/hr Documented by: Infusion: 03/17/21 19:23 Dose: 100 mls/hr Documented by: Admin: 03/17/21 18:23 Dose: 100 mls/hr Documented by: Infusion: 03/17/21 15:01 Dose: 0 mls/hr Documented by: Admin: 03/17/21 11:38 Dose: 100 mls/hr Documented by: Infusion: 03/17/21 06:15 Dose: 100 mls/hr Documented by: Admin: 03/17/21 05:15 Dose: 100 mls/hr Documented by: YOVANI Levofloxacin (Levaquin) 750 mg in 150 mls @ 100 mls/hr IV Q24H [facility] Last Admin: 03/17/21 16:35 Dose: 100 mls/hr Documented by: GORDON Sodium Chloride (Normal Saline 0.9%) 250 mls @ 21 mls/hr IV Q24H PRN PRN Reason: Flush Insulin Glargine (Insulin Glargine 100 Unit/Ml 3ml Pen) 5 unit SUBCUT BID [facility] Last Admin: 03/17/21 21:15 Dose: 5 unit Documented by: GORDON Cosigned by: BIANKA Admin: 03/17/21 11:43 Dose: Not Given Documented by: CRISTY Insulin Human Lispro (Insulin Lispro 100 Unit/Ml 3ml Vial) 0 unit SUBCUT ACHS [facility]; Protocol Last Admin: 03/17/21 21:15 Dose: 2 unit Documented by: GORDON Cosigned by: BIANKA Admin: 03/17/21 17:52 Dose: 1 unit Documented by: GORDON Cosigned by: BIANKA Admin: 03/17/21 11:43 Dose: Not Given Documented by: Admin: 03/17/21 09:48 Dose: Not Given Documented by: CRISTY Lisinopril (Lisinopril 5 Mg Tablet) 5 mg PO DAILY [facility] Last Admin: 03/17/21 11:40 Dose: Not Given Documented by: CRISTY Metoprolol Succinate (Metoprolol Er 50 Mg Tablet) 100 mg PO DAILY [facility] Last Admin: 03/17/21 09:48 Dose: 100 mg Documented by: CRISTY Naloxone HCl (Naloxone 0.4 Mg/Ml Vial) 0.2 mg IV Q2MIN PRN PRN Reason: Opiate Reversal Ondansetron HCl (Ondansetron 4 Mg/2 Ml Inj) 4 mg IV Q8HR PRN PRN Reason: Nausea And Vomiting Sodium Chloride (Sodium Chloride 0.9% Flush) 10 ml IV PRN PRN PRN Reason: Flush Sodium Chloride (Sodium Chloride 0.9% Flush) 10 ml IV BID [facility] Trazodone HCl (Trazodone 50 Mg Tablet) 50 mg PO BEDTIME [facility] Last Admin: 03/17/21 21:15 Dose: 50 mg Documented by: Admin: 03/16/21 22:23 Dose: 50 mg Documented by: GORDON Discontinued Medications Acetaminophen (Acetaminophen 325 Mg Tablet) 975 mg PO NOW ONE Stop: 03/16/21 14:59 Last Admin: 03/16/21 15:15 Dose: 975 mg Documented by: BILLY Acetaminophen (Acetaminophen 325 Mg Tablet) 650 mg PO Q6HR PRN PRN Reason: Fever/Mild Pain (1-3) Apixaban (Apixaban 5 Mg Tablet) 5 mg PO BID [facility] Last Admin: 03/17/21 00:01 Dose: Not Given Documented by: YOVANI Bupivacaine HCl (Bupivacaine 0.25% (Pf) Vial) 30 ml INJ NOW ONE Stop: 03/17/21 14:41 Last Admin: 03/17/21 14:40 Dose: 30 ml Documented by: NIKHIL Dextrose (Dextrose 50 % In Water 25 Gm/50 Ml Syringe) 25 gm IV PRN PRN PRN Reason: Hypoglycemia Dibucaine (Dibucaine 1% Oint 28 Gm) 1 applic TOP NOW ONE Stop: 03/17/21 14:44 Last Admin: 03/17/21 14:43 Dose: 1 applic Documented by: NIKHIL Fentanyl (Fentanyl 100 Mcg/2 Ml Inj) 0 mcg IV Q5M PRN PRN Reason: Pain, Moderate (4-6) Hydromorphone HCl (Hydromorphone 0.5 Mg Inj) 0.5 mg IV Q15MIN PRN PRN Reason: Pain, Last Admin: 03/16/21 19:35 Dose: 0.5 mg Documented by: Admin: 03/16/21 15:15 Dose: 0.5 mg Documented by: BILLY Levofloxacin (Levaquin) 750 mg in 150 mls @ 100 mls/hr IV NOW ONE Stop: 03/16/21 16:27 Last Infusion: 03/16/21 16:35 Dose: 0 mls/hr Documented by: Admin: 03/16/21 15:35 Dose: 100 mls/hr Documented by: BILLY Metronidazole (Flagyl) 500 mg in 100 mls @ 100 mls/hr IV NOW ONE Stop: 03/16/21 15:57 Last Infusion: 03/16/21 19:22 Dose: 0 mls/hr Documented by: Admin: 03/16/21 17:42 Dose: 100 mls/hr Documented by: MAYCO Sodium Chloride (Normal Saline 0.9%) 1,000 mls @ 1,000 mls/hr IV BOLUS ONE Stop: 03/16/21 16:00 Last Infusion: 03/16/21 17:26 Dose: 0 mls/hr Documented by: Admin: 03/16/21 15:15 Dose: 1,000 mls/hr Documented by: BILLY Sodium Chloride (Normal Saline 0.9%) 1,000 mls @ 100 mls/hr IV CONT [facility] Last Admin: 03/17/21 09:51 Dose: 100 mls/hr Documented by: Infusion: 03/17/21 08:23 Dose: 100 mls/hr Documented by: Admin: 03/16/21 22:23 Dose: 100 mls/hr Documented by: GORDON Levofloxacin (Levaquin) 750 mg in 150 mls @ 100 mls/hr IV Q24H [facility] Lactated Ringer's (Lactated Ringers) 1,000 mls @ 42 mls/hr IV NOW ONE Stop: 03/18/21 13:28 Last Infusion: 03/17/21 15:18 Dose: 0 mls/hr Documented by: Admin: 03/17/21 13:40 Dose: 42 mls/hr Documented by: CORNELL Lactated Ringer's (Lactated Ringers) 1,000 mls @ 42 mls/hr IV CONT [facility] Last Admin: 03/17/21 22:45 Dose: Not Given Documented by: DOLORES Ondansetron HCl (Ondansetron 4 Mg/2 Ml Inj) 4 mg IV NOW PRN PRN Reason: Nausea And Vomiting Vital Signs Vital signs: Vital Signs - 8 hr 03/16/21 11:45 03/16/21 15:24 03/16/21 17:50 Temperature 99.3 F Pulse Rate 93 H 80 61 Respiratory Rate 14 18 95 H Blood Pressure 139/63 135/85 131/61 Pulse Oximetry 97 99 95 <Jose G Yo DO - Last Filed: 03/17/21 03:01> Orders Ordered: Albuterol/Ipratropium (Albuterol/Ipratropium 3 Ml Ampul) 3 ml INH RTQ4HR PRN PRN Reason: Shortness Of Breath Last Admin: 03/17/21 15:54 Dose: 3 ml Documented by: ESTHER Atorvastatin Calcium (Atorvastatin 20 Mg Tablet) 80 mg PO DAILY [facility] Last Admin: 03/17/21 09:48 Dose: 80 mg Documented by: CRISTY Dextrose (Dextrose 50 % In Water 25 Gm/50 Ml Syringe) 25 gm IV PRN PRN PRN Reason: Hypoglycemia Diltiazem HCl (Diltiazem Cd 120 Mg Cap) 120 mg PO DAILY [facility] Last Admin: 03/17/21 09:48 Dose: 120 mg Documented by: CRISTY Docusate Sodium (Docusate 100 Mg Capsule) 100 mg PO BID [facility] Last Admin: 03/17/21 21:15 Dose: 100 mg Documented by: Admin: 03/17/21 09:50 Dose: 100 mg Documented by: CRISTY Finasteride (Finasteride 5 Mg Tablet) 5 mg PO DAILY [facility] Last Admin: 03/17/21 09:48 Dose: 5 mg Documented by: CRISTY Fluoxetine HCl (Fluoxetine 20 Mg Capsule) 20 mg PO DAILY [facility] Last Admin: 03/17/21 09:48 Dose: 20 mg Documented by: CRISTY Hydromorphone HCl (Hydromorphone 0.5 Mg Inj) 0.5 mg IV Q2H PRN PRN Reason: Pain, Moderate (4-6) Last Admin: 03/18/21 00:55 Dose: 0.5 mg Documented by: Admin: 03/17/21 22:48 Dose: 0.5 mg Documented by: Admin: 03/17/21 19:34 Dose: 0.5 mg Documented by: Admin: 03/17/21 16:35 Dose: 0.5 mg Documented by: Admin: 03/17/21 11:39 Dose: 0.5 mg Documented by: Admin: 03/17/21 00:51 Dose: 0.5 mg Documented by: YOVANI Metronidazole (Flagyl) 500 mg in 100 mls @ 100 mls/hr IV Q6H [facility] Last Infusion: 03/18/21 00:09 Dose: 0 mls/hr Documented by: Admin: 03/17/21 22:46 Dose: 100 mls/hr Documented by: Infusion: 03/17/21 19:23 Dose: 100 mls/hr Documented by: Admin: 03/17/21 18:23 Dose: 100 mls/hr Documented by: Infusion: 03/17/21 15:01 Dose: 0 mls/hr Documented by: Admin: 03/17/21 11:38 Dose: 100 mls/hr Documented by: Infusion: 03/17/21 06:15 Dose: 100 mls/hr Documented by: Admin: 03/17/21 05:15 Dose: 100 mls/hr Documented by: YOVANI Levofloxacin (Levaquin) 750 mg in 150 mls @ 100 mls/hr IV Q24H [facility] Last Admin: 03/17/21 16:35 Dose: 100 mls/hr Documented by: GORDON Sodium Chloride (Normal Saline 0.9%) 250 mls @ 21 mls/hr IV Q24H PRN PRN Reason: Flush Insulin Glargine (Insulin Glargine 100 Unit/Ml 3ml Pen) 5 unit SUBCUT BID [facility] Last Admin: 03/17/21 21:15 Dose: 5 unit Documented by: GORDON Cosigned by: BIANKA Admin: 03/17/21 11:43 Dose: Not Given Documented by: CRISTY Insulin Human Lispro (Insulin Lispro 100 Unit/Ml 3ml Vial) 0 unit SUBCUT ACHS [facility]; Protocol Last Admin: 03/17/21 21:15 Dose: 2 unit Documented by: GORDON Cosigned by: BIANKA Admin: 03/17/21 17:52 Dose: 1 unit Documented by: GORDON Cosigned by: BIANKA Admin: 03/17/21 11:43 Dose: Not Given Documented by: Admin: 03/17/21 09:48 Dose: Not Given Documented by: CRISTY Lisinopril (Lisinopril 5 Mg Tablet) 5 mg PO DAILY [facility] Last Admin: 03/17/21 11:40 Dose: Not Given Documented by: CRISTY Metoprolol Succinate (Metoprolol Er 50 Mg Tablet) 100 mg PO DAILY [facility] Last Admin: 03/17/21 09:48 Dose: 100 mg Documented by: CRISTY Naloxone HCl (Naloxone 0.4 Mg/Ml Vial) 0.2 mg IV Q2MIN PRN PRN Reason: Opiate Reversal Ondansetron HCl (Ondansetron 4 Mg/2 Ml Inj) 4 mg IV Q8HR PRN PRN Reason: Nausea And Vomiting Sodium Chloride (Sodium Chloride 0.9% Flush) 10 ml IV PRN PRN PRN Reason: Flush Sodium Chloride (Sodium Chloride 0.9% Flush) 10 ml IV BID [facility] Trazodone HCl (Trazodone 50 Mg Tablet) 50 mg PO BEDTIME [facility] Last Admin: 03/17/21 21:15 Dose: 50 mg Documented by: Admin: 03/16/21 22:23 Dose: 50 mg Documented by: GORDON Discontinued Medications Acetaminophen (Acetaminophen 325 Mg Tablet) 975 mg PO NOW ONE Stop: 03/16/21 14:59 Last Admin: 03/16/21 15:15 Dose: 975 mg Documented by: BILLY Acetaminophen (Acetaminophen 325 Mg Tablet) 650 mg PO Q6HR PRN PRN Reason: Fever/Mild Pain (1-3) Apixaban (Apixaban 5 Mg Tablet) 5 mg PO BID [facility] Last Admin: 03/17/21 00:01 Dose: Not Given Documented by: YOVANI Bupivacaine HCl (Bupivacaine 0.25% (Pf) Vial) 30 ml INJ NOW ONE Stop: 03/17/21 14:41 Last Admin: 03/17/21 14:40 Dose: 30 ml Documented by: NIKHIL Dextrose (Dextrose 50 % In Water 25 Gm/50 Ml Syringe) 25 gm IV PRN PRN PRN Reason: Hypoglycemia Dibucaine (Dibucaine 1% Oint 28 Gm) 1 applic TOP NOW ONE Stop: 03/17/21 14:44 Last Admin: 03/17/21 14:43 Dose: 1 applic Documented by: NIKHIL Fentanyl (Fentanyl 100 Mcg/2 Ml Inj) 0 mcg IV Q5M PRN PRN Reason: Pain, Moderate (4-6) Hydromorphone HCl (Hydromorphone 0.5 Mg Inj) 0.5 mg IV Q15MIN PRN PRN Reason: Pain, Last Admin: 03/16/21 19:35 Dose: 0.5 mg Documented by: Admin: 03/16/21 15:15 Dose: 0.5 mg Documented by: BILLY Levofloxacin (Levaquin) 750 mg in 150 mls @ 100 mls/hr IV NOW ONE Stop: 03/16/21 16:27 Last Infusion: 03/16/21 16:35 Dose: 0 mls/hr Documented by: Admin: 03/16/21 15:35 Dose: 100 mls/hr Documented by: BILLY Metronidazole (Flagyl) 500 mg in 100 mls @ 100 mls/hr IV NOW ONE Stop: 03/16/21 15:57 Last Infusion: 03/16/21 19:22 Dose: 0 mls/hr Documented by: Admin: 03/16/21 17:42 Dose: 100 mls/hr Documented by: MAYCO Sodium Chloride (Normal Saline 0.9%) 1,000 mls @ 1,000 mls/hr IV [facility]OLUS ONE Stop: 03/16/21 16:00 Last Infusion: 03/16/21 17:26 Dose: 0 mls/hr Documented by: Admin: 03/16/21 15:15 Dose: 1,000 mls/hr Documented by: BILLY Sodium Chloride (Normal Saline 0.9%) 1,000 mls @ 100 mls/hr IV CONT [facility] Last Admin: 03/17/21 09:51 Dose: 100 mls/hr Documented by: Infusion: 03/17/21 08:23 Dose: 100 mls/hr Documented by: Admin: 03/16/21 22:23 Dose: 100 mls/hr Documented by: GORDON Levofloxacin (Levaquin) 750 mg in 150 mls @ 100 mls/hr IV Q24H [facility] Lactated Ringer's (Lactated Ringers) 1,000 mls @ 42 mls/hr IV NOW ONE Stop: 03/18/21 13:28 Last Infusion: 03/17/21 15:18 Dose: 0 mls/hr Documented by: Admin: 03/17/21 13:40 Dose: 42 mls/hr Documented by: CORNELL Lactated Ringer's (Lactated Ringers) 1,000 mls @ 42 mls/hr IV CONT [facility] Last Admin: 03/17/21 22:45 Dose: Not Given Documented by: DOLORES Ondansetron HCl (Ondansetron 4 Mg/2 Ml Inj) 4 mg IV NOW PRN PRN Reason: Nausea And Vomiting Vital Signs Vital signs: Vital Signs - 8 hr 03/16/21 11:45 03/16/21 15:24 03/16/21 17:50 Temperature 99.3 F Pulse Rate 93 H 80 61 Respiratory Rate 14 18 95 H Blood Pressure 139/63 135/85 131/61 Pulse Oximetry 97 99 95 Medical Decision Making <Latisha Jameson MD - Last Filed: 03/18/21 02:04> Medical Records Medical records reviewed: Yes I reviewed the patient's medical records. Lab Data Lab results reviewed: Yes I reviewed the patient's lab results. Result diagrams: 03/17/21 05:50 03/17/21 05:50 Labs: Lab Results 03/16/21 03/16/21 03/16/21 Range/Units 12:45 12:45 12:45 WBC 15.4 H (4.5-11.0) X10^3/uL RBC 4.40 L (4.5-5.9) X10^6/uL Hgb 12.8 L (13.5-17.5) g/dL Hct 37.7 L (41-53) % MCV 85.9 (80-100) fL MCH 29.1 (26-34) PG MCHC 33.9 (30-36) % RDW 14.8 (11.6-14.8) % Plt Count 231 (150-400) X10^3/uL Neut % (Auto) 83.7 H (50-75) % Lymph % (Auto) 8.2 L (25-40) % [place] % (Auto) 7.7 (3-14) % Eos % (Auto) 0.1 L (2-4) % Baso % (Auto) 0.3 (0-2) % Neut # (Auto) 90077 H (6190-6574) /uL Lymph # (Auto) 1300 (2859-3525) /uL [place] # (Auto) 1200 H (0-900) /uL Eos # (Auto) 0 (0-450) /uL Baso # (Auto) 100 (0-100) /uL PT 14.2 H (10.1-12.7) SECONDS INR 1.3 (0.9-1.3) Sodium 134 L (137-145) mmol/L Potassium 4.7 (3.4-5.1) mmol/L Chloride 102 (98-107) mmol/L Carbon Dioxide 24 (22-32) mmol/L BUN 17 (9-20) mg/dL Creatinine 1.09 (0.66-1.25) mg/dL Estimated GFR > 60.0 (>60) mL/min BUN/Creatinine Ratio 15.6 (6-22) Glucose 209 H (80-110) mg/dL Hemoglobin A1c (4.0-6.0) % Lactate (0.7-2.1) mmol/L Calcium 9.1 (8.4-10.2) mg/dL Total Bilirubin 0.9 (0.2-1.3) mg/dL AST 20 (17-59) IU/L ALT 18 (<50) IU/L Alkaline Phosphatase 90 (38-126) U/L Total Protein 7.9 (6.3-8.2) g/dL Albumin 4.4 (3.5-5.0) g/dL Globulin 3.5 (1.7-4.1) g/dL Albumin/Globulin Ratio 1.3 (1.0-2.8) Lipase 69 (23-300) U/L Procalcitonin (<0.5) ng/mL SARS-CoV-2 (PCR) (Negative) 03/16/21 03/16/21 03/16/21 Range/Units 12:45 12:45 12:45 WBC (4.5-11.0) X10^3/uL RBC (4.5-5.9) X10^6/uL Hgb (13.5-17.5) g/dL Hct (41-53) % MCV (80-100) fL MCH (26-34) PG MCHC (30-36) % RDW (11.6-14.8) % Plt Count (150-400) X10^3/uL Neut % (Auto) (50-75) % Lymph % (Auto) (25-40) % [place] % (Auto) (3-14) % Eos % (Auto) (2-4) % Baso % (Auto) (0-2) % Neut # (Auto) (9574-4993) /uL Lymph # (Auto) (5613-8758) /uL [place] # (Auto) (0-900) /uL Eos # (Auto) (0-450) /uL Baso # (Auto) (0-100) /uL PT (10.1-12.7) SECONDS INR (0.9-1.3) Sodium (137-145) mmol/L Potassium (3.4-5.1) mmol/L Chloride (98-107) mmol/L Carbon Dioxide (22-32) mmol/L BUN (9-20) mg/dL Creatinine (0.66-1.25) mg/dL Estimated GFR (>60) mL/min BUN/Creatinine Ratio (6-22) Glucose (80-110) mg/dL Hemoglobin A1c 9.1 H (4.0-6.0) % Lactate 1.4 (0.7-2.1) mmol/L Calcium (8.4-10.2) mg/dL Total Bilirubin (0.2-1.3) mg/dL AST (17-59) IU/L ALT (<50) IU/L Alkaline Phosphatase (38-126) U/L Total Protein (6.3-8.2) g/dL Albumin (3.5-5.0) g/dL Globulin (1.7-4.1) g/dL Albumin/Globulin Ratio (1.0-2.8) Lipase (23-300) U/L Procalcitonin 0.07 (<0.5) ng/mL SARS-CoV-2 (PCR) (Negative) 03/16/21 Range/Units 15:21 WBC (4.5-11.0) X10^3/uL RBC (4.5-5.9) X10^6/uL Hgb (13.5-17.5) g/dL Hct (41-53) % MCV (80-100) fL MCH (26-34) PG MCHC (30-36) % RDW (11.6-14.8) % Plt Count (150-400) X10^3/uL Neut % (Auto) (50-75) % Lymph % (Auto) (25-40) % [place] % (Auto) (3-14) % Eos % (Auto) (2-4) % Baso % (Auto) (0-2) % Neut # (Auto) (7774-5966) /uL Lymph # (Auto) (8146-5105) /uL [place] # (Auto) (0-900) /uL Eos # (Auto) (0-450) /uL Baso # (Auto) (0-100) /uL PT (10.1-12.7) SECONDS INR (0.9-1.3) Sodium (137-145) mmol/L Potassium (3.4-5.1) mmol/L Chloride (98-107) mmol/L Carbon Dioxide (22-32) mmol/L BUN (9-20) mg/dL Creatinine (0.66-1.25) mg/dL Estimated GFR (>60) mL/min BUN/Creatinine Ratio (6-22) Glucose (80-110) mg/dL Hemoglobin A1c (4.0-6.0) % Lactate (0.7-2.1) mmol/L Calcium (8.4-10.2) mg/dL Total Bilirubin (0.2-1.3) mg/dL AST (17-59) IU/L ALT (<50) IU/L Alkaline Phosphatase (38-126) U/L Total Protein (6.3-8.2) g/dL Albumin (3.5-5.0) g/dL Globulin (1.7-4.1) g/dL Albumin/Globulin Ratio (1.0-2.8) Lipase (23-300) U/L Procalcitonin (<0.5) ng/mL SARS-CoV-2 (PCR) Negative (Negative) Point of Care Testing Glucose POC 140 Point of care testing: Point of Care Testing Glucose POC [address] scan - abdomen/pelvis: Radiologist's Impression: FINDINGS: Image quality: Excellent. Lung bases: There is mild dependent atelectasis. Heart: No significant findings. ABDOMEN: Liver: Unremarkable. Gallbladder: There are few small dependent calcified gallstones. No wall thickening or pericholecystic fluid. Biliary ducts: Unremarkable. Pancreas: Unremarkable. Spleen: Unremarkable. Adrenal Glands: There is thickening of the adrenal glands bilaterally. Kidneys and Ureters: No hydronephrosis. There is mild nonspecific perinephric stranding bilaterally. There are bilateral renal cysts. Stomach and Bowel: There is a small hiatal hernia. Stomach, small bowel loops, and colon are unremarkable. There is colonic diverticulosis without acute diverticulitis. Peritoneum: A small amount of intraperitoneal free fluid is demonstrated within the pelvis. No free air. Ventral Wall: No hernias. Abdominal Nodes: No retroperitoneal or mesenteric adenopathy by size criteria. Vessels: Aorta and inferior vena cava are normal in size. PELVIS: Pelvic Organs: There is heterogeneous enlargement of the prostate.. Bladder: Unremarkable. Pelvic Nodes: No enlarged lymph nodes. Miscellaneous: No inguinal hernias. There is a peripherally enhancing right perianal fluid collection in containing internal foci of gas measuring up to approximately 4.4 by 2.3 by 5.0 cm within the right ischiorectal fat extending medially to the anal cleft with there is a likely associated cutaneous fistula. There is a suspected associated anal fistula at approximately the 7 o'clock position. There is adjacent subcutaneous fat stranding and mild skin thickening. Bones: Unremarkable. IMPRESSION: 1. 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 Further evaluation may be obtained with an MRI if clinically indicated. 2. Colonic diverticulosis without acute diverticulitis. 3. Small amount of pelvic free fluid is nonspecific but likely reactive. Dictated by: Chauncey Damian M.D. on 03/16/2021 at 15:56 MDM Narrative Medical decision making narrative: 70-year-old gentleman presents with draining perirectal abscess that very likely is large pilonidal cyst with fistula developing. His still not fully drained and IV antibiotics will be appropriate as well as pain control. Care has been reviewed with the surgery Service, Dr. Flynn. She will consult and patient will be admitted to the medicine service for care of his comorbidities and administration of antibiotics. Will need to hold his Eliquis in anticipation of surgical intervention. Findings and plan reviewed with patient he is safe for transfer to the floor <Jose G Yo DO - Last Filed: 03/17/21 03:01> Lab Data Labs: Lab Results 03/16/21 03/16/21 03/16/21 Range/Units 12:45 12:45 12:45 WBC 15.4 H (4.5-11.0) X10^3/uL RBC 4.40 L (4.5-5.9) X10^6/uL Hgb 12.8 L (13.5-17.5) g/dL Hct 37.7 L (41-53) % MCV 85.9 (80-100) fL MCH 29.1 (26-34) PG MCHC 33.9 (30-36) % RDW 14.8 (11.6-14.8) % Plt Count 231 (150-400) X10^3/uL Neut % (Auto) 83.7 H (50-75) % Lymph % (Auto) 8.2 L (25-40) % [place] % (Auto) 7.7 (3-14) % Eos % (Auto) 0.1 L (2-4) % Baso % (Auto) 0.3 (0-2) % Neut # (Auto) 19817 H (8912-0147) /uL Lymph # (Auto) 1300 (5003-8285) /uL [place] # (Auto) 1200 H (0-900) /uL Eos # (Auto) 0 (0-450) /uL Baso # (Auto) 100 (0-100) /uL PT 14.2 H (10.1-12.7) SECONDS INR 1.3 (0.9-1.3) Sodium 134 L (137-145) mmol/L Potassium 4.7 (3.4-5.1) mmol/L Chloride 102 (98-107) mmol/L Carbon Dioxide 24 (22-32) mmol/L BUN 17 (9-20) mg/dL Creatinine 1.09 (0.66-1.25) mg/dL Estimated GFR > 60.0 (>60) mL/min BUN/Creatinine Ratio 15.6 (6-22) Glucose 209 H (80-110) mg/dL Hemoglobin A1c (4.0-6.0) % Lactate (0.7-2.1) mmol/L Calcium 9.1 (8.4-10.2) mg/dL Total Bilirubin 0.9 (0.2-1.3) mg/dL AST 20 (17-59) IU/L ALT 18 (<50) IU/L Alkaline Phosphatase 90 (38-126) U/L Total Protein 7.9 (6.3-8.2) g/dL Albumin 4.4 (3.5-5.0) g/dL Globulin 3.5 (1.7-4.1) g/dL Albumin/Globulin Ratio 1.3 (1.0-2.8) Lipase 69 (23-300) U/L Procalcitonin (<0.5) ng/mL SARS-CoV-2 (PCR) (Negative) 06/22/21 06/22/21 06/22/21 Range/Units 12:45 12:45 12:45 WBC (4.5-11.0) X10^3/uL RBC (4.5-5.9) X10^6/uL Hgb (13.5-17.5) g/dL Hct (41-53) % MCV (80-100) fL MCH (26-34) PG MCHC (30-36) % RDW (11.6-14.8) % Plt Count (150-400) X10^3/uL Neut % (Auto) (50-75) % Lymph % (Auto) (25-40) % [place] % (Auto) (3-14) % Eos % (Auto) (2-4) % Baso % (Auto) (0-2) % Neut # (Auto) (3376-6900) /uL Lymph # (Auto) (5717-7492) /uL [place] # (Auto) (0-900) /uL Eos # (Auto) (0-450) /uL Baso # (Auto) (0-100) /uL PT (10.1-12.7) SECONDS INR (0.9-1.3) Sodium (137-145) mmol/L Potassium (3.4-5.1) mmol/L Chloride (98-107) mmol/L Carbon Dioxide (22-32) mmol/L BUN (9-20) mg/dL Creatinine (0.66-1.25) mg/dL Estimated GFR (>60) mL/min BUN/Creatinine Ratio (6-22) Glucose (80-110) mg/dL Hemoglobin A1c 9.1 H (4.0-6.0) % Lactate 1.4 (0.7-2.1) mmol/L Calcium (8.4-10.2) mg/dL Total Bilirubin (0.2-1.3) mg/dL AST (17-59) IU/L ALT (<50) IU/L Alkaline Phosphatase (38-126) U/L Total Protein (6.3-8.2) g/dL Albumin (3.5-5.0) g/dL Globulin (1.7-4.1) g/dL Albumin/Globulin Ratio (1.0-2.8) Lipase (23-300) U/L Procalcitonin 0.07 (<0.5) ng/mL SARS-CoV-2 (PCR) (Negative) 03/16/21 Range/Units 15:21 WBC (4.5-11.0) X10^3/uL RBC (4.5-5.9) X10^6/uL Hgb (13.5-17.5) g/dL Hct (41-53) % MCV (80-100) fL MCH (26-34) PG MCHC (30-36) % RDW (11.6-14.8) % Plt Count (150-400) X10^3/uL Neut % (Auto) (50-75) % Lymph % (Auto) (25-40) % [place] % (Auto) (3-14) % Eos % (Auto) (2-4) % Baso % (Auto) (0-2) % Neut # (Auto) (0128-9486) /uL Lymph # (Auto) (2151-8175) /uL [place] # (Auto) (0-900) /uL Eos # (Auto) (0-450) /uL Baso # (Auto) (0-100) /uL PT (10.1-12.7) SECONDS INR (0.9-1.3) Sodium (137-145) mmol/L Potassium (3.4-5.1) mmol/L Chloride (98-107) mmol/L Carbon Dioxide (22-32) mmol/L BUN (9-20) mg/dL Creatinine (0.66-1.25) mg/dL Estimated GFR (>60) mL/min BUN/Creatinine Ratio (6-22) Glucose (80-110) mg/dL Hemoglobin A1c (4.0-6.0) % Lactate (0.7-2.1) mmol/L Calcium (8.4-10.2) mg/dL Total Bilirubin (0.2-1.3) mg/dL AST (17-59) IU/L ALT (<50) IU/L Alkaline Phosphatase (38-126) U/L Total Protein (6.3-8.2) g/dL Albumin (3.5-5.0) g/dL Globulin (1.7-4.1) g/dL Albumin/Globulin Ratio (1.0-2.8) Lipase (23-300) U/L Procalcitonin (<0.5) ng/mL SARS-CoV-2 (PCR) Negative (Negative) Point of Care Testing Glucose POC 140 Point of care testing: Point of Care Testing Glucose POC 140 Discharge Plan Departure Patient Disposition: Admitted As Inpatient Clinical Impression: Abscess of buttock Admit Date/Time: 03/16/21 19:17 Admit Provider: Dana Hopson
--- NOTE | 2021-03-16 14:58 | DI.CT.S_ITS ---
PROCEDURE: CT ABDOMEN PELVIS W CON INDICATIONS: draining perirectal abscess TECHNIQUE: After the administration of intravenous contrast, axial sections acquired from the lung bases to the pubic symphysis. Coronal and sagittal reformats were performed. For radiation dose reduction, the following was used: automated exposure control, adjustment of mA and/or kV according to patient size. COMPARISON: None. FINDINGS: Image quality: Excellent. Lung bases: There is mild dependent atelectasis. Heart: No significant findings. ABDOMEN: Liver: Unremarkable. Gallbladder: There are few small dependent calcified gallstones. No wall thickening or pericholecystic fluid. Biliary ducts: Unremarkable. Pancreas: Unremarkable. Spleen: Unremarkable. Adrenal Glands: There is thickening of the adrenal glands bilaterally. Kidneys and Ureters: No hydronephrosis. There is mild nonspecific perinephric stranding bilaterally. There are bilateral renal cysts. Stomach and Bowel: There is a small hiatal hernia. Stomach, small bowel loops, and colon are unremarkable. There is colonic diverticulosis without acute diverticulitis. Peritoneum: A small amount of intraperitoneal free fluid is demonstrated within the pelvis. No free air. Ventral Wall: No hernias. Abdominal Nodes: No retroperitoneal or mesenteric adenopathy by size criteria. Vessels: Aorta and inferior vena cava are normal in size. PELVIS: Pelvic Organs: There is heterogeneous enlargement of the prostate.. Bladder: Unremarkable. Pelvic Nodes: No enlarged lymph nodes. Miscellaneous: No inguinal hernias. There is a peripherally enhancing right perianal fluid collection in containing internal foci of gas measuring up to approximately 4.4 by 2.3 by 5.0 cm within the right ischiorectal fat extending medially to the anal cleft with there is a likely associated cutaneous fistula. There is a suspected associated anal fistula at approximately the 7 o'clock position. There is adjacent subcutaneous fat stranding and mild skin thickening. Bones: Unremarkable. IMPRESSION: 1. 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 Further evaluation may be obtained with an MRI if clinically indicated. 2. Colonic diverticulosis without acute diverticulitis. 3. Small amount of pelvic free fluid is nonspecific but likely reactive. Dictated by: Chauncey Damian M.D. on 03/16/2021 at 15:56 Approved by: Chauncey Damian M.D. on 03/16/2021 at 16:04
[2021-03-16] MEDS: SODIUM CHLORIDE 0.9% 1,000 ML 1000 ML IV (15:15)
[2021-03-16] MEDS: HYDROMORPHONE 0.5 MG INJ IV ×2 (15:15→19:35)
[2021-03-16] MEDS: ACETAMINOPHEN 325 MG TABLET 975 MG PO (15:15)
[2021-03-16] MEDS: levoFLOXacin 750 MG/150 ML PIGGYBACK 100 MG IV (15:35)
[2021-03-16 16:28] LABS: COVID19 - ADMIT (NP swab/PCR) Negative (Negative)
[2021-03-16] MEDS: metroNIDAZOLE 500 MG/100 ML PIGGYBACK 100 MG IV (17:42)
--- NOTE | 2021-03-16 19:36 | PC.NURSE ---
pt asking for home meds--primarily eliquis and metformin. advised no eliquis due to bleeding and holding metformin due to contrast scan and pending initiation of ABX
--- NOTE | 2021-03-16 19:36 | PM.CN ---
History of Present Illness Consult details Date Patient Seen: 03/16/21 Time Patient Seen: 19:36 Chief complaint: cyst on lower back. painful. feeling rly tired Reason for consult: sacrococcygeal abscess Requesting provider: Latisha Jameson Narrative: This is a 70 yo man with history of atrial fibrillation, anticoagulated on Eliquis (takes BID, last taken this AM), and has an implanted loop recorder. He came into the ER this PM with complaint of 2 days of swelling and tenderness in the sacral area, which ruptured and drained some bloody drainage. He came into the ER, and had a CT scan which was read as a 4.4 by 2.3 by 5.0 cm abscess within the right ischiorectal fat extending medially to the anal cleft with there is a likely associated cutaneous fistula. The patient reports he had a history of pilonidal cyst about 30 years ago. He has never had a problem with it since then, until a couple of days ago, but he feels that this is very similar to what he experienced 30 years ago when he had a rupture of his pilonidal cyst. ROS: Denies dysuria, melena, hematochezia, nausea, vomiting, obstructive symptoms, chest pain, shortness of breath, palpitations, headaches, confusion. Thirteen system review is otherwise negative other than as mentioned below and in HPI. PE: GENERAL: Alert, oriented, comfortable. Appears stated age. Answers questions promptly and appropriately. Vital signs noted. HENT: Normocephalic, atraumatic. Hearing intact. EYES: Conjunctiva pink, sclera white, no periorbital swelling. CARDIOVASCULAR: Regular rate. No pedal edema. RESPIRATORY: Non-tachypneic, breathing comfortably on room air. GASTROINTESTINAL: Abdomen soft and non-distended GENITALURINARY: No flank tenderness. Perianal area: Tenderness and fluctuance over the sacrococcygeal region, consistent with a pilonidal abscess. 1 cm jagged opening in the gluteal skin consistent with a pilonidal drainage tract. No clear association with the rectum. MUSCULOSKELETAL: Equal tone and mass bilaterally. SKIN: Warm, dry, soft, appropriate color for ethnicity. No other lesions, rashes, or wounds. NEURO: Alert and Oriented X 3. No gross sensory deficits, or cognitive issues. PSYCH: Appropriate affect and mood. Meds Home Medications and Allergies Home Medications Medication Instructions Recorded Confirmed Type albuterol sulfate [ProAir HFA] 2 puff INHALATION Q6HR PRN 03/16/21 03/16/21 History apixaban [Eliquis] 5 mg PO BID 03/16/21 03/16/21 History atorvastatin 80 mg PO DAILY 03/16/21 03/16/21 History diltiazem HCl [Cartia XT] 120 mg PO DAILY 03/16/21 03/16/21 History empagliflozin [Jardiance] 10 mg PO DAILY 03/16/21 03/16/21 History finasteride 5 mg PO DAILY 03/16/21 03/16/21 History fluoxetine 20 mg PO DAILY 03/16/21 03/16/21 History lisinopril 5 mg PO DAILY 03/16/21 03/16/21 History metformin 1,000 mg PO BID 03/16/21 03/16/21 History metoprolol succinate 100 mg PO DAILY 03/16/21 03/16/21 History pantoprazole 40 mg PO DAILY 03/16/21 03/16/21 History tramadol 50 mg PO Q6HR PRN 03/16/21 03/16/21 History trazodone 50 mg PO BEDTIME 03/16/21 03/16/21 History Allergies Allergy/AdvReac Type Severity Reaction Status Date / Time No Known Drug Allergies Allergy Verified 03/16/21 11:49 Exam Vital Signs (past 8 hours): - 03/16/21 11:45 03/16/21 15:24 03/16/21 17:50 Temperature 99.3 F Pulse Rate 93 H 80 61 Respiratory Rate 14 18 95 H Blood Pressure 139/63 135/85 131/61 Pulse Oximetry 97 99 95 03/16/21 19:18 03/16/21 19:30 03/16/21 19:31 Temperature Pulse Rate 63 61 63 Respiratory Rate Blood Pressure 99/61 Pulse Oximetry 95 94 95 Oxygen Delivery Method Room Air Objective Imaging CT scan - abdomen: Radiologist's impression: [address] [id number] Scan ReportSigned Patient: Padilla Maradiaga TMR#: [id number]: 1950cct:[id number]/Sex: 70 / MDate of Service: 03/16/21Loc: EDAccession Number: [id number] Procedure: CT abdomen pelvis w con Ordering Provider: Latisha Jameson MD PROCEDURE: CT ABDOMEN PELVIS W CON INDICATIONS: draining perirectal abscess TECHNIQUE: After the administration of intravenous contrast, axial sections acquired from the lung bases to the pubic symphysis. Coronal and sagittal reformats were performed. For radiation dose reduction, the following was used: automated exposure control, adjustment of mA and/or kV according to patient size. COMPARISON: None. FINDINGS: Image quality: Excellent. Lung bases: There is mild dependent atelectasis. Heart: No significant findings. ABDOMEN: Liver: Unremarkable. Gallbladder: There are few small dependent calcified gallstones. No wall thickening or pericholecystic fluid. Biliary ducts: Unremarkable. Pancreas: Unremarkable. Spleen: Unremarkable. Adrenal Glands: There is thickening of the adrenal glands bilaterally. Kidneys and Ureters: No hydronephrosis. There is mild nonspecific perinephric stranding bilaterally. There are bilateral renal cysts. Stomach and Bowel: There is a small hiatal hernia. Stomach, small bowel loops, and colon are unremarkable. There is colonic diverticulosis without acute diverticulitis. Peritoneum: A small amount of intraperitoneal free fluid is demonstrated within the pelvis. No free air. Ventral Wall: No hernias. Abdominal Nodes: No retroperitoneal or mesenteric adenopathy by size criteria. Vessels: Aorta and inferior vena cava are normal in size. PELVIS: Pelvic Organs: There is heterogeneous enlargement of the prostate.. Bladder: Unremarkable. Pelvic Nodes: No enlarged lymph nodes. Miscellaneous: No inguinal hernias. There is a peripherally enhancing right perianal fluid collection in containing internal foci of gas measuring up to approximately 4.4 by 2.3 by 5.0 cm within the right ischiorectal fat extending medially to the anal cleft with there is a likely associated cutaneous fistula. There is a suspected associated anal fistula at approximately the 7 o'clock position. There is adjacent subcutaneous fat stranding and mild skin thickening. Bones: Unremarkable. IMPRESSION: 1. 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 Further evaluation may be obtained with an MRI if clinically indicated. 2. Colonic diverticulosis without acute diverticulitis. 3. Small amount of pelvic free fluid is nonspecific but likely reactive. Dictated by: Chauncey Damian M.D. on 03/16/2021 at 15:56 Labs Result Diagrams: 03/17/21 05:50 03/17/21 05:50 Labs: Laboratory Results - last 24 hr 03/16/21 03/16/21 03/16/21 12:45 12:45 12:45 WBC 15.4 H RBC 4.40 L Hgb 12.8 L Hct 37.7 L MCV 85.9 MCH 29.1 MCHC 33.9 RDW 14.8 Plt Count 231 Neut % (Auto) 83.7 H Lymph % (Auto) 8.2 L [place] % (Auto) 7.7 Eos % (Auto) 0.1 L Baso % (Auto) 0.3 Neut # (Auto) 89748 H Lymph # (Auto) 1300 [place] # (Auto) 1200 H Eos # (Auto) 0 Baso # (Auto) 100 PT 14.2 H INR 1.3 Sodium 134 L Potassium 4.7 Chloride 102 Carbon Dioxide 24 BUN 17 Creatinine 1.09 Estimated GFR > 60.0 BUN/Creatinine Ratio 15.6 Glucose 209 H Lactate Calcium 9.1 Total Bilirubin 0.9 AST 20 ALT 18 Alkaline Phosphatase 90 Total Protein 7.9 Albumin 4.4 Globulin 3.5 Albumin/Globulin Ratio 1.3 Lipase 69 Procalcitonin SARS-CoV-2 (PCR) 03/16/21 03/16/21 03/16/21 12:45 12:45 15:21 WBC RBC Hgb Hct MCV MCH MCHC RDW Plt Count Neut % (Auto) Lymph % (Auto) [place] % (Auto) Eos % (Auto) Baso % (Auto) Neut # (Auto) Lymph # (Auto) [place] # (Auto) Eos # (Auto) Baso # (Auto) PT INR Sodium Potassium Chloride Carbon Dioxide BUN Creatinine Estimated GFR BUN/Creatinine Ratio Glucose Lactate 1.4 Calcium Total Bilirubin AST ALT Alkaline Phosphatase Total Protein Albumin Globulin Albumin/Globulin Ratio Lipase Procalcitonin 0.07 SARS-CoV-2 (PCR) Negative Assessment & Plan Assessment and plan (1) Sacrococcygeal pilonidal cyst with abscess: Status: Acute (2) Anticoagulated by anticoagulation treatment: Status: Acute (3) History of stroke: Problem details: Left-sided weakness, currently on apixaban Status: Acute (4) Type 2 diabetes mellitus: Problem details: On metformin Qualifiers: Diabetes mellitus complication status: with other specified complication Diabetes mellitus group home insulin use: unspecified intermediate designer insulin use status Qualified Code(s): E11.69 - Type 2 diabetes mellitus with other specified complication Status: Acute (5) History of atrial fibrillation: Problem details: Post cardiac ablation Status: Acute (6) Leukocytosis: Qualifiers: Leukocytosis type: unspecified Qualified Code(s): D72.829 - Elevated white blood cell count, unspecified Status: Acute Assessment & Plan narrative: This is a 70-year-old man who has leukocytosis, and spontaneous drainage of what looks like a draining pilonidal abscess. Given his comorbidities of atrial fibrillation, anticoagulation on Eliquis, type 2 diabetes, history of stroke with residual deficit I have asked that he be admitted to the Medicine Service, and treated with IV antibiotics for tonight. I spoke to him about surgery tomorrow which would include possible debridement, possible definitive management, possible packing, possible drain placement. Risks and benefits of the procedure were discussed including risk of bleeding, infection, damage to nearby structures, need for additional procedures. Patient desires to proceed with surgery tomorrow. Recommendations: Broad-spectrum antibiotics with gram-negative coverage such as Zosyn or quinolone + Flagyl Okay to have dinner, but should be NPO after midnight Hold Eliquis Hold anticoagulation Would consider holding metformin since he just said CT with IV contrast Tight glucose control, appreciate management by hospitalist team Okay for shower or bath Pain control as needed Dry dressing over top of the open wound, change as needed Posted for OR tomorrow for exam under anesthesia, and possible wound debridement/definitive management COVID-19 COVID-19 status: Negative Result date/Date tested (Pos, Neg/Pending): 03/16/21 Time Spent With Patient Time with patient: 25 - 35 minutes
--- NOTE | 2021-03-16 21:11 | PC.NURSE ---
Helped patient read through his med list. He was able to remember and correct any errors to the meds. Gave list to the nurse.
[2021-03-16] MEDS: SODIUM CHLORIDE 0.9% 1,000 ML 100 ML IV (22:23)
[2021-03-16] MEDS: TRAZODONE 50 MG TABLET PO (22:23)
--- NOTE | 2021-03-16 23:24 | PC.NURSE ---
Patient brought to unit from ED around 2100. VSS. Patient reporting pain in rectum. Has some serosanguineous drainage into brief. NS running at 100 in left forearm. SCDs on. Bed low, call light within reach.
[2021-03-17] VITALS (14 sets, daily range): BP systolic 101–141; BP diastolic 39–73; PULSE 60–98; RESP 8–20; TEMP 36.4–37.2; O2SAT 95–100; BMI 27.0
[2021-03-17] MEDS: HYDROMORPHONE 0.5 MG INJ IV ×5 (00:51→22:48)
[2021-03-17 01:21] LABS: Hemoglobin A1C% w Est Avg Glu 9.1 % (4.0-6.0)
[2021-03-17 03:39] LABS: Appearance Urine UA CLEAR; Bacteria Urine None Seen; Bilirubin Urine UA NEGATIVE (NEGATIVE); Color Urine UA YELLOW; Glucose Urine UA 1+ g/dL (Negative); Ketones Urine UA 1+ (NEGATIVE); Leukocyte Esterase Urine UA NEGATIVE (NEGATIVE); Nitrite Urine UA NEGATIVE (Negative); Occult Blood Urine UA NEGATIVE (Negative); Protein Urine UA 1+ (Negative); RBC Urine None Seen (0-5/HPF); Urobilinogen Urine UA 0.2 E.U./dL (0.2); WBC Urine None Seen (0-5/HPF)
--- NOTE | 2021-03-17 04:02 | P.HP_ITS ---
History of Present Illness History of Present Illness Date Patient Seen: 03/16/21 Time Patient Seen: 22:30 Chief complaint: cyst on lower back. painful. feeling rly tired Narrative: Padilla Maradiaga is a 70-year-old male who has history of atrial fibrillation corrected with a cardiac ablation implanted loop recorder, and anticoagulated on apixaban, diabetes type 2, hypertension, and hyperlipidemia presented to the emergency department due to having what he thought was some sort of cyst in the upper cleft above his buttocks. He notice that it was hurting 2 days ago on Monday and then when he took a shower later he noticed it was leaking blood. When he got to the emergency room he sat on a gurney and apparently said he had blood all over the sheets. He does not recall having a fever but stated he was informed that he had a fever on admission. He denies headaches, chest pain, nausea vomiting, dysuria, diarrhea or constipation. 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 He apparently told the general surgeon that he had had a history of a pilonidal cyst 30 years ago and this had a very similar presentation. 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 Does have a elevated white count of 15.4, RBC 4.40, hemoglobin 12.8, hematocrit 37.7, platelet count 231, he does have a left shift with a neutrophil count of 12,800, sodium was 134, potassium 4.7, chloride 102, bicarb 24, BUN 17, creatinine 1.09 with a GFR greater than 60, glucose was 209, his A1c is 9.1%, lactate 1.4, liver enzymes are within normal limits, lipase was 69, procalcitonin 0.7, UA was negative for a UTI, and COVID-19 PCR was negative. Patient History Medical History History of atrial fibrillation History of stroke Type 2 diabetes mellitus Surgical History Status post placement of implantable loop recorder Family & Social History Family History Mother Cancer Father Myocardial infarction Black lung disease Social History: household members none Prior Living Arrangements Apartment/Condo Safety & Behavioral: Feels Safe in Current Yes Environment Been Physically Hurt or No Threatened By a Person Suicidal Ideation Description None Suicide Plan Description No Plan Tobacco & Substance use: Smoking Status Former smoker alcohol intake frequency denies Substance Use Type does not use Meds Home Medications and Allergies Home Medications Medication Instructions Recorded Confirmed Type albuterol sulfate [ProAir HFA] 2 puff INHALATION Q6HR PRN 03/16/21 03/16/21 History apixaban [Eliquis] 5 mg PO BID 03/16/21 03/16/21 History atorvastatin 80 mg PO DAILY 03/16/21 03/16/21 History diltiazem HCl [Cartia XT] 120 mg PO DAILY 03/16/21 03/16/21 History empagliflozin [Jardiance] 10 mg PO DAILY 03/16/21 03/16/21 History finasteride 5 mg PO DAILY 03/16/21 03/16/21 History fluoxetine 20 mg PO DAILY 03/16/21 03/16/21 History lisinopril 5 mg PO DAILY 03/16/21 03/16/21 History metformin 1,000 mg PO BID 03/16/21 03/16/21 History metoprolol succinate 100 mg PO DAILY 03/16/21 03/16/21 History pantoprazole 40 mg PO DAILY 03/16/21 03/16/21 History tramadol 50 mg PO Q6HR PRN 03/16/21 03/16/21 History trazodone 50 mg PO BEDTIME 03/16/21 03/16/21 History Allergies Allergy/AdvReac Type Severity Reaction Status Date / Time No Known Drug Allergies Allergy Verified 03/16/21 11:49 Review of Systems Review of Systems ROS: Yes All systems reviewed with the patient and are negative except as otherwise documented Exam Vital Signs (past 8 hours): - 03/16/21 20:30 03/16/21 21:00 03/16/21 21:54 Temperature 97.5 F L Pulse Rate 68 53 L 66 Respiratory Rate 17 Blood Pressure 113/56 L 106/53 L 130/65 Pulse Oximetry 97 97 96 03/16/21 23:48 03/17/21 03:26 Temperature 97.9 F 97.6 F Pulse Rate 67 70 Respiratory Rate 18 16 Blood Pressure 117/46 L 101/51 L Pulse Oximetry 98 95 Oxygen Delivery Method Room Air Oxygen Flow Rate 0 Narrative Exam Narrative: Gen: Alert, oriented, well-developed 70 y.o. male, NAD HEENT: normocephalic, atraumatic, conjunctiva clear, sclera non-icteric, oral mucosa pink and moist Neck: supple, full ROM, no JVD, trachea is midline Resp: Lungs CTA, non-labored breathing CV: RRR, no murmur or rubs Abd: soft, non-tender, normoactive BTs Skin: Multiple psoriatic lesions on his left arm and upper leg, area around pilonidal cyst is erythematous however unable to completely visualize the abscess Neuro: Alert and oriented X 4 w/no focal deficits. Speech clear and coherent. Extremities: moves all 4 extremities, is ambulatory, negative Elan?s sign Psyche: very pleasant, normal mood and affect. Objective Labs Result Diagrams: 03/16/21 12:45 03/16/21 12:45 Labs: Laboratory Results - last 24 hr 03/16/21 03/16/21 03/16/21 12:45 12:45 12:45 WBC 15.4 H RBC 4.40 L Hgb 12.8 L Hct 37.7 L MCV 85.9 MCH 29.1 MCHC 33.9 RDW 14.8 Plt Count 231 Neut % (Auto) 83.7 H Lymph % (Auto) 8.2 L [place] % (Auto) 7.7 Eos % (Auto) 0.1 L Baso % (Auto) 0.3 Neut # (Auto) 70325 H Lymph # (Auto) 1300 [place] # (Auto) 1200 H Eos # (Auto) 0 Baso # (Auto) 100 PT 14.2 H INR 1.3 Sodium 134 L Potassium 4.7 Chloride 102 Carbon Dioxide 24 BUN 17 Creatinine 1.09 Estimated GFR > 60.0 BUN/Creatinine Ratio 15.6 Glucose 209 H Hemoglobin A1c Lactate Calcium 9.1 Total Bilirubin 0.9 AST 20 ALT 18 Alkaline Phosphatase 90 Total Protein 7.9 Albumin 4.4 Globulin 3.5 Albumin/Globulin Ratio 1.3 Lipase 69 Procalcitonin Urine Color Urine Appearance Urine pH Ur Specific [place] Urine Protein Urine Glucose (UA) Urine Ketones Urine Occult Blood Urine Nitrate Urine Bilirubin Urine Urobilinogen Ur Leukocyte Esterase SARS-CoV-2 (PCR) 03/16/21 03/16/21 03/16/21 12:45 12:45 12:45 WBC RBC Hgb Hct MCV MCH MCHC RDW Plt Count Neut % (Auto) Lymph % (Auto) [place] % (Auto) Eos % (Auto) Baso % (Auto) Neut # (Auto) Lymph # (Auto) [place] # (Auto) Eos # (Auto) Baso # (Auto) PT INR Sodium Potassium Chloride Carbon Dioxide BUN Creatinine Estimated GFR BUN/Creatinine Ratio Glucose Hemoglobin A1c 9.1 H Lactate 1.4 Calcium Total Bilirubin AST ALT Alkaline Phosphatase Total Protein Albumin Globulin Albumin/Globulin Ratio Lipase Procalcitonin 0.07 Urine Color Urine Appearance Urine pH Ur Specific [place] Urine Protein Urine Glucose (UA) Urine Ketones Urine Occult Blood Urine Nitrate Urine Bilirubin Urine Urobilinogen Ur Leukocyte Esterase SARS-CoV-2 (PCR) 03/16/21 03/17/21 15:21 03:32 WBC RBC Hgb Hct MCV MCH MCHC RDW Plt Count Neut % (Auto) Lymph % (Auto) [place] % (Auto) Eos % (Auto) Baso % (Auto) Neut # (Auto) Lymph # (Auto) [place] # (Auto) Eos # (Auto) Baso # (Auto) PT INR Sodium Potassium Chloride Carbon Dioxide BUN Creatinine Estimated GFR BUN/Creatinine Ratio Glucose Hemoglobin A1c Lactate Calcium Total Bilirubin AST ALT Alkaline Phosphatase Total Protein Albumin Globulin Albumin/Globulin Ratio Lipase Procalcitonin Urine Color Yellow Urine Appearance Clear Urine pH 6.0 Ur Specific [place] 1.010 Urine Protein 1+ H Urine Glucose (UA) 1+ H Urine Ketones 1+ H Urine Occult Blood Negative Urine Nitrate Negative Urine Bilirubin Negative Urine Urobilinogen 0.2 Ur Leukocyte Esterase Negative SARS-CoV-2 (PCR) Negative Assessment & Plan Assessment & Plan narrative: Padilla Maradiaga is admitted to the inpatient service for further evaluation and treatment of a infected pilonidal cyst and management of his chronic illnesses. 1. 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 This was initiated in the ED. 2. Atrial fibrillation with ablation * Cardiac telemetry * Anticoagulation will be continued tomorrow night likely 3. Diabetes type 2 with poor control with an A1c of 9.1 * He is started on glargine 5 units b.i.d. * Low-dose correctional scale * NPO past midnight and can resume a carb controlled diet after surgery * Oral anti diabetics are being held 4. Essential hypertension, chronic * Continue home dose of diltiazem 120 mg p.o. daily, lisinopril 5 mg p.o. daily, metoprolol succinate 100 mg p.o. daily if blood pressure can support 5. Depression, chronic * Continue home dose of fluoxetine 20 mg p.o. daily and trazodone 50 mg p.o. at bedtime 6. GERD, chronic * Continue home dose of pantoprazole 40 mg p.o. daily VTE prophylaxis: Wells risk score: 0 Bilateral SCDs, resume apixaban after surgery Consults: Dr. Lucille Darling, General Surgery consult and involvement is appreciated. Patient is admitted under inpatient status with expected length of stay greater than 2 midnights due to severity of presenting symptoms, risk of adverse event, and complexity of treatment plan. FEN: saline lock, NPO, BMP and magnesium in the am. Dispo: Probable discharge to home Code Status: Full Code as discussed with patient COVID-19 COVID-19 status: Negative Result date/Date tested (Pos, Neg/Pending): 03/16/21 Scores Wells' Criteria for PE Clinical signs and symptoms of DVT: No PE is #1 Dx or equally likely: No Heart rate > 100: No Immobilization at least 3 days or surg in previous 4 weeks: No History of PE or DVT: No Hemoptysis: No Malignancy w/Treatment within 6 months or palliative: No Wells' PE Score total: 0 Quality MIPS - Admit I confirm the patient?s Advance Care Plan is present, Code status is documented, Surrogate decision maker is in patient?s record [If Yes, STOP here]: Yes
[2021-03-17] MEDS: metroNIDAZOLE 500 MG/100 ML PIGGYBACK 100 MG IV ×4 (05:15→22:46)
[2021-03-17 05:43] LABS: Culture Indicated Urine Cult Not Indicated
[2021-03-17 06:06] LABS: Add Manual Diff / Slide Review NO; Basophils Absolute Auto 100 /uL (0-100); Basophils Percent Auto 1.2 % (0-2); Eosinophils Absolute Auto 100 /uL (0-450); Eosinophils Percent Auto 1.2 % (2-4); Hematocrit 32.6 % (41-53); Hemoglobin 11.1 g/dL (13.5-17.5); Lymphocytes Absolute Auto 1400 /uL (1100-4500); Lymphocytes Percent Auto 14.6 % (25-40); Mean Corpuscular Hemoglobin 29.5 PG (26-34); Mean Corpuscular Volume 86.7 fL (80-100); Monocytes Absolute Auto 900 /uL (0-900); Monocytes Percent Auto 9.5 % (3-14); Neutrophils Absolute Auto 7000 /uL (1500-7000); Neutrophils Percent Auto 73.5 % (50-75); Platelet Count 196 X10^3/uL (150-400); Red Blood Cell Count 3.76 X10^6/uL (4.5-5.9); Red Cell Distribution Width 15.4 % (11.6-14.8); White Blood Cell Count 9.5 X10^3/uL (4.5-11.0)
[2021-03-17 06:18] LABS: BUN Creatinine Ratio 15.5 (6-22); Blood Urea Nitrogen 13 mg/dL (9-20); Calcium 8.4 mg/dL (8.4-10.2); Carbon Dioxide 24 mmol/L (22-32); Chloride 108 mmol/L (98-107); Estimated Glomerular Filt Rate > 60.0 mL/min (>60); Glucose 112 mg/dL (80-110); HEMOLYSIS < 15 (0-50); Potassium 4.5 mmol/L (3.4-5.1); Sodium 137 mmol/L (137-145)
--- NOTE | 2021-03-17 09:12 | PM.PREOP ---
Pre-operative Note COVID-19 COVID-19 status: Negative Result date/Date tested (Pos, Neg/Pending): 03/17/21 Interval Note History & Physical reviewed/Exam performed by Physician: Yes Changes to H&P: No
--- NOTE | 2021-03-17 09:15 | CM.DANOTE ---
DCP: Case received, EMR reviewed and met with patient. Introduced self and role. Was able to obtain information from patient regarding his baseline activity status prior to hospitalization, as well as his current living situation. DCP assessment completed with information currently available. Patient is a 70 year old male who admitted yesterday morning to the care of the hospitalist team. PCP: Dr. Chacko ([facility]). Payer: confirmed: Medicare/[employer]. Patient came to the hospital via private vehicle secondary to having some bleeding and discomfort to his rectal area. Patient holds current diagnosis of right perianal abscess. He has been consulted with surgeon as well. Met with patient in his room. He is alert and oriented, pleasant. He was laying in bed. Patient is independent at his baseline activities. He resides alone here in [place]. He has no family or contacts. P: DCP to continue to follow. Plan is for patient to go home when he is medically stable. Bee Mcgraw RN/Natural Resource Specialist
[2021-03-17] MEDS: ATORVASTATIN 20 MG TABLET 80 MG PO (09:48)
[2021-03-17] MEDS: dilTIAZem CD 120 MG CAP PO (09:48)
[2021-03-17] MEDS: METOPROLOL ER 50 MG TABLET 100 MG PO (09:48)
[2021-03-17] MEDS: FINASTERIDE 5 MG TABLET PO (09:48)
[2021-03-17] MEDS: FLUoxetine 20 MG CAPSULE PO (09:48)
[2021-03-17] MEDS: DOCUSATE 100 MG CAPSULE PO ×2 (09:50→21:15)
[2021-03-17] MEDS: SODIUM CHLORIDE 0.9% 1,000 ML 100 ML IV (09:51)
--- NOTE | 2021-03-17 12:31 | PC.NURSE ---
Addendum entered by Ruby Mahmood R.N. 03/17/21 14:39: Patient down to surgery around 1315. Original Note: Assess- Patient is alert and oriented x3, he was incontinent of loose stool and then had a medium on the commode. Cleaned up. Patient has an abcess/cyst to the r.side of his michael/rectal area that is swollen and oozing brown drainage. He was given 0.5mg of iv dilaudid. When he was on the commode he complained of feeling light headed, check his bp and it was 140s/70s, his bs was 104. Patient is resting comfortably now and will be going to surgery around 1500.
[2021-03-17] MEDS: LACTATED RINGERS 1,000 ML 42 ML IV (13:40)
--- NOTE | 2021-03-17 13:49 | SUR.HOLD ---
Report received from SOPHIA Muhammad prior to pt coming to preop holding.
--- NOTE | 2021-03-17 14:28 | SUR.OPER ---
Prone on padded OR bed, head in foam head support, gel chest rolls, gel pad under knees, pillow under lower legs, toes free of pressure, arms secured on padded arm boards at <90 degrees abduction. Safety belt at thigh.
[2021-03-17] MEDS: BUPIVACAINE 0.25% (PF) VIAL 30 ML INJ (14:40)
[2021-03-17] MEDS: DIBUCAINE 1% OINT 28 GM 1 APPLIC TOP (14:43)
--- NOTE | 2021-03-17 15:01 | PM.OP.1 ---
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 Sequential compression devices were placed on both legs and turned on. Appropriate perioperative antibiotics were given. General anesthesia was induced and the patient was intubated. The patient was turned prone onto the OR table. All bony prominences were padded. The buttocks were taped apart. The perianal area was prepped and draped in sterile fashion with betadine prep. Surgical timeout was conducted. 0.25% Marcaine plain was used to perform a four quadrant anal block using 5mL per quadrant for a total of 20mL. On external exam there was indurated perianal skin most severe on the right posterior lateral and midline of the perirectal skin. There were two openings in the skin, one at 12:00 and one at 2:00. The 2:00 opening had an associated cleft with rolled edges. A 14 Fr angiocath on a 10cc syringe was used to inject saline through each of the openings. Saline was seen draining from the anal canal at the posterior midline. A large fistula complex was identified involving both skin openings and two posterior midline fistula tracts. Using a lacrimal probe, two non-cutting Setons were placed through the tracts, one loop going from the skin opening at 12:00 to the most superficial anal fistula opening. The second fistula was placed through the skin opening at 2:00 and through the deeper fistula opening in the anal canal. The two openings in the anal canal were about 2mm apart and in the same axis at the posterior midline. Once both setons were placed, an additional exam of the anal canal was performed, and saline was again injected through the exterior fistula openings. No additional fistula tracts were identified. No mass lesions were seen in the anal canal. There was good hemostasis observed at the end of the procedure. The two setons were seen well secured in place. A thick layer of Dibucaine was used to coat the anoderm. A stack of 4x4 gauze was then used to cover the anal opening and secure it in place with medipore tape. The patient was transferred onto his hospital bed into supine position. He was then awakened from anesthesia and extubated. Needle, sponge, and instrument counts were correct x 2. The patient was transferred to the PACU in stable condition. Complications: none Post-operative Condition: stable Disposition: PACU
--- NOTE | 2021-03-17 15:38 | SUR.PHASEI ---
Stable PACU stay, Dr. quach spoke with pt at bedside, pt transported up to room 204 via bed and left in stable condition.
[2021-03-17] MEDS: ALBUTEROL/IPRATROPIUM 3 ML AMPUL INH (15:54)
[2021-03-17] MEDS: levoFLOXacin 750 MG/150 ML PIGGYBACK 100 MG IV (16:35)
--- NOTE | 2021-03-17 17:27 | PM.PN.1 ---
Subjective Subjective Date Patient Seen: 03/17/21 Interval history: The patient is a 70-year-old male who underwent resection of a pilonidal cyst with anal fistula. He tolerated the procedure without difficulty. His pain is well controlled. Patient also has a history of atrial fibrillation status post ablation continued on anticoagulation. Exam Vital Signs (past 8 hours): - 03/17/21 09:48 03/17/21 11:45 03/17/21 13:41 Temperature 98 F 97.7 F Pulse Rate 64 98 H 60 Respiratory Rate 16 16 Blood Pressure 120/60 141/73 H 126/62 Pulse Oximetry 100 97 03/17/21 15:01 03/17/21 15:06 03/17/21 15:23 Temperature 98.8 F 98.9 F Pulse Rate 84 78 74 Respiratory Rate 16 16 8 L Blood Pressure 135/57 L 112/39 L 118/44 L Pulse Oximetry 95 96 97 03/17/21 15:30 03/17/21 15:54 03/17/21 16:00 Temperature 97.5 F L 97.6 F Pulse Rate 68 60 64 Respiratory Rate 16 20 16 Blood Pressure 120/50 L 108/45 L Pulse Oximetry 97 98 99 03/17/21 16:30 Temperature 97.5 F L Pulse Rate 73 Respiratory Rate 16 Blood Pressure 116/57 L Pulse Oximetry 96 Oxygen Delivery Method Room Air Oxygen Flow Rate 0 Narrative Exam Narrative: Delightful gentleman lying in bed in no obvious distress lungs: clear to Auscultation cardiac exam: Regular rate and rhythm normal S1-S2 abdomen soft nontender nondistended extremities: No edema Objective Labs Result Diagrams: 03/17/21 05:50 03/17/21 05:50 Labs: Laboratory Results - last 24 hr 03/16/21 03/17/21 03/17/21 12:45 03:32 05:50 WBC 9.5 RBC 3.76 L Hgb 11.1 L Hct 32.6 L MCV 86.7 MCH 29.5 MCHC 34.0 RDW 15.4 H Plt Count 196 Neut % (Auto) 73.5 Lymph % (Auto) 14.6 L [place] % (Auto) 9.5 Eos % (Auto) 1.2 L Baso % (Auto) 1.2 Neut # (Auto) 7000 Lymph # (Auto) 1400 [place] # (Auto) 900 Eos # (Auto) 100 Baso # (Auto) 100 Sodium Potassium Chloride Carbon Dioxide BUN Creatinine Estimated GFR BUN/Creatinine Ratio Glucose Hemoglobin A1c 9.1 H Calcium Magnesium Urine Color Yellow Urine Appearance Clear Urine pH 6.0 Ur Specific [place] 1.010 Urine Protein 1+ H Urine Glucose (UA) 1+ H Urine Ketones 1+ H Urine Occult Blood Negative Urine Nitrate Negative Urine Bilirubin Negative Urine Urobilinogen 0.2 Ur Leukocyte Esterase Negative Urine RBC None seen Urine WBC None seen Urine Bacteria None seen Ur Culture Indicated? Cult not indicated 03/17/21 05:50 WBC RBC Hgb Hct MCV MCH MCHC RDW Plt Count Neut % (Auto) Lymph % (Auto) [place] % (Auto) Eos % (Auto) Baso % (Auto) Neut # (Auto) Lymph # (Auto) [place] # (Auto) Eos # (Auto) Baso # (Auto) Sodium 137 Potassium 4.5 Chloride 108 H Carbon Dioxide 24 BUN 13 Creatinine 0.84 Estimated GFR > 60.0 BUN/Creatinine Ratio 15.5 Glucose 112 H Hemoglobin A1c Calcium 8.4 Magnesium 2.0 Urine Color Urine Appearance Urine pH Ur Specific [place] Urine Protein Urine Glucose (UA) Urine Ketones Urine Occult Blood Urine Nitrate Urine Bilirubin Urine Urobilinogen Ur Leukocyte Esterase Urine RBC Urine WBC Urine Bacteria Ur Culture Indicated? 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 Atrial fibrillation with ablation Cardiac telemetry Anticoagulation will be continued tomorrow night likely will defer to surgery when to initiate anticoagulation 3. Diabetes type 2 with poor control with an A1c of 9.1 He is started on glargine 5 units b.i.d. Low-dose correctional scale NPO past midnight and can resume a carb controlled diet after surgery Oral anti diabetics are being held 4. Essential hypertension, chronic Continue home dose of diltiazem 120 mg p.o. daily, lisinopril 5 mg p.o. daily, metoprolol succinate 100 mg p.o. daily if blood pressure can support 5. Depression, chronic Continue home dose of fluoxetine 20 mg p.o. daily and trazodone 50 mg p.o. at bedtime 6. GERD, chronic Continue home dose of pantoprazole 40 mg p.o. daily VTE prophylaxis: Wells risk score: 0 Bilateral SCDs, resume apixaban after surgery Consults: Dr. Lucille Darling, General Surgery consult and involvement is appreciated. Patient is admitted under inpatient status with expected length of stay greater than 2 midnights due to severity of presenting symptoms, risk of adverse event, and complexity of treatment plan. FEN: saline lock, NPO, BMP and magnesium in the am. Dispo: Probable discharge to home Code Status: Full Code as discussed with patient
[2021-03-17] MEDS: INSULIN LISPRO 100 UNIT/ML 3ML VIAL SUBCUT ×2 (17:52→21:15)
[2021-03-17] MEDS: TRAZODONE 50 MG TABLET PO (21:15)
[2021-03-17] MEDS: INSULIN GLARGINE 100 UNIT/ML 3ML PEN SUBCUT (21:15)
--- NOTE | 2021-03-17 23:24 | PC.NURSE ---
VSS. A&Ox4. Back from surgery at 1530. Pain in buttocks 4-5/10. Given PRN dilaudid 0.5 mg which provides relief. Dressing is CDI. B, 214. Saline locked. Tele removed. 1 person assist. Clear liquids, tolerated well. No n/v. Call light within reach, bed low.
[2021-03-18] VITALS (10 sets, daily range): BP systolic 92–211; BP diastolic 49–70; PULSE 51–69; RESP 16–18; TEMP 36.3–37.1; O2SAT 96–98
[2021-03-18] MEDS: SODIUM CHLORIDE 0.9% FLUSH 10 ML IV ×4 (00:55→21:04)
[2021-03-18] MEDS: HYDROMORPHONE 0.5 MG INJ IV ×3 (00:55→23:56)
--- NOTE | 2021-03-18 01:12 | PC.NURSE ---
patient is alert and oriented. Breath sounds diminished but CTA with RA sat of 96%; on continuous oximetry per MD order. HRR. Denies nausea. BT present and is passing flatus. Denies dysuria, frequency or urgency with urination; using urinal and urine is clear gely. Is able to move himself in bed. Gait not assessed at this time but evening RN reports he is out of bed with SBA. Does have decreased ROM in left shoulder as residual from prior CVA. Psoriasis plaques noted on all extremities and back. Dressing to right buttock is CDI. At shift change stated pain was 3/10 but now is 5/10 so medicated with IV Dilaudid. Wearing bilateral calf SCD's. Reports having fallen recently so fall risk score is high and bed alarm is activated.
[2021-03-18] MEDS: metroNIDAZOLE 500 MG/100 ML PIGGYBACK 100 MG IV ×4 (04:44→22:43)
[2021-03-18] MEDS: SODIUM CHLORIDE 0.9% 250 ML 21 ML IV (04:44)
[2021-03-18 06:32] LABS: Add Manual Diff / Slide Review NO; Basophils Absolute Auto 100 /uL (0-100); Basophils Percent Auto 0.7 % (0-2); Eosinophils Absolute Auto 0 /uL (0-450); Hematocrit 33.6 % (41-53); Hemoglobin 11.6 g/dL (13.5-17.5); Lymphocytes Absolute Auto 800 /uL (1100-4500); Lymphocytes Percent Auto 8.6 % (25-40); Mean Corpuscular HGB Conc 34.4 % (30-36); Mean Corpuscular Hemoglobin 29.7 PG (26-34); Mean Corpuscular Volume 86.3 fL (80-100); Monocytes Absolute Auto 400 /uL (0-900); Monocytes Percent Auto 4.3 % (3-14); Neutrophils Absolute Auto 8600 /uL (1500-7000); Neutrophils Percent Auto 86.4 % (50-75); Platelet Count 227 X10^3/uL (150-400); Red Cell Distribution Width 15.1 % (11.6-14.8); White Blood Cell Count 9.9 X10^3/uL (4.5-11.0)
[2021-03-18 06:47] LABS: BUN Creatinine Ratio 19.7 (6-22); Blood Urea Nitrogen 14 mg/dL (9-20); Calcium 8.8 mg/dL (8.4-10.2); Carbon Dioxide 20 mmol/L (22-32); Chloride 111 mmol/L (98-107); Estimated Glomerular Filt Rate > 60.0 mL/min (>60); Glucose 168 mg/dL (80-110); HEMOLYSIS < 15 (0-50); Magnesium 1.9 mg/dL (1.6-2.3); Potassium 5.1 mmol/L (3.4-5.1); Sodium 137 mmol/L (137-145)
--- NOTE | 2021-03-18 09:28 | PC.NURSE ---
Patient has pain 3/10 at this time. Patient denies nausea, bowel tones are active in all 4 quadrants. Patient states that he has not had a BM since before his surgery. There are currently no extra bowel medications ordered besides docusate. Will communicated this to .
[2021-03-18] MEDS: FINASTERIDE 5 MG TABLET PO (09:31)
[2021-03-18] MEDS: METOPROLOL ER 50 MG TABLET 100 MG PO (09:31)
[2021-03-18] MEDS: dilTIAZem CD 120 MG CAP PO (09:32)
[2021-03-18] MEDS: DOCUSATE 100 MG CAPSULE PO ×2 (09:32→20:50)
[2021-03-18] MEDS: ATORVASTATIN 20 MG TABLET 80 MG PO (09:32)
[2021-03-18] MEDS: lisinopriL 5 MG TABLET PO (09:32)
[2021-03-18] MEDS: FLUoxetine 20 MG CAPSULE PO (09:32)
[2021-03-18] MEDS: INSULIN LISPRO 100 UNIT/ML 3ML VIAL SUBCUT ×2 (09:33→12:53)
--- NOTE | 2021-03-18 10:28 | CM.DPC ---
DCP Cont: Discussed patient during team rounds. Dr. Lozoya indicated that Dr. Darling may be ordering dressing changes to rectum 3 times a day. Patient resides alone, and will not have any support for this service. He is Medicare, inpatient as of 03-16. Discussed with patient, and brought in list. He indicated he is willing to go to rehab, and would really like to be here in town and use [facility] if possible. Contacted Haylee at [facility], and she will review. By Medicare standards, patient would be ready by tomorrow. There are currently no notes as of yet reflecting three times a day dressing changes. P: DCP to continue to follow. Will follow up with Haylee at [facility] to see if she can accept. Bee Mcgraw RN/Horticultural Specialty Grower Inside
[2021-03-18] MEDS: INSULIN GLARGINE 100 UNIT/ML 3ML PEN SUBCUT (10:44)
--- NOTE | 2021-03-18 10:59 | PM.PN.1 ---
Subjective Subjective Date Patient Seen: 03/18/21 Time Patient Seen: 13:19 Interval history: Pt went to OR yesterday for I and D of perirectal abscess and non-cutting seton placement for complex fistulae. No acute events overnight. No BM since surgery. Did have a BM before surgery. Exam Vital Signs (past 8 hours): - 03/18/21 04:33 03/18/21 08:00 03/18/21 09:31 Temperature 97.6 F 97.8 F Pulse Rate 63 65 65 Respiratory Rate 16 17 Blood Pressure 108/49 L 121/60 121/60 Pulse Oximetry 97 98 03/18/21 09:32 Temperature Pulse Rate 65 Respiratory Rate Blood Pressure 211/60 H Pulse Oximetry Oxygen Delivery Method Room Air Oxygen Flow Rate 0 Narrative Exam Narrative: GENERAL: Alert, oriented, comfortable. Appears younger than stated age. Answers questions promptly and appropriately. Vital signs noted. HENT: Normocephalic, atraumatic. Hearing intact. EYES: Conjunctiva pink, sclera white, no periorbital swelling. CARDIOVASCULAR: Regular rate. No pedal edema. RESPIRATORY: Non-tachypneic, breathing comfortably on room air. GASTROINTESTINAL: Abdomen soft and non-distended Perianal: Improving induration and tenderness, non cutting setons are in place and clean, no active bleeding GENITALURINARY: No flank tenderness. MUSCULOSKELETAL: Equal tone and mass bilaterally. SKIN: Warm, dry, soft, appropriate color for ethnicity. No other lesions, rashes, or wounds. NEURO: Alert and Oriented X 3. No gross sensory deficits, or cognitive issues. PSYCH: Appropriate affect and mood. Objective Labs Result Diagrams: 03/18/21 06:15 03/18/21 06:15 Labs: Laboratory Results - last 24 hr 03/18/21 03/18/21 06:15 06:15 WBC 9.9 RBC 3.90 L Hgb 11.6 L Hct 33.6 L MCV 86.3 MCH 29.7 MCHC 34.4 RDW 15.1 H Plt Count 227 Neut % (Auto) 86.4 H Lymph % (Auto) 8.6 L [place] % (Auto) 4.3 Eos % (Auto) 0.0 L Baso % (Auto) 0.7 Neut # (Auto) 8600 H Lymph # (Auto) 800 L [place] # (Auto) 400 Eos # (Auto) 0 Baso # (Auto) 100 Sodium 137 Potassium 5.1 Chloride 111 H Carbon Dioxide 20 L BUN 14 Creatinine 0.71 Estimated GFR > 60.0 BUN/Creatinine Ratio 19.7 Glucose 168 H Calcium 8.[address] [facility] Medical History History of atrial fibrillation History of stroke Type 2 diabetes mellitus Surgical History Status post placement of implantable loop recorder Family History Mother Cancer Father Myocardial infarction Black lung disease Social History household members: none Smoking Status: Former smoker alcohol intake: former Assessment & Plan Assessment and plan (1) Anal fistula: Status: Acute (2) History of atrial fibrillation: Problem details: Post cardiac ablation Status: Acute (3) Anticoagulated by anticoagulation treatment: Status: Acute (4) History of stroke: Problem details: Left-sided weakness, currently on apixaban Status: Acute (5) Type 2 diabetes mellitus: Problem details: On metformin Qualifiers: 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 He is doing fairly well, although is more sore now that the local anesthetic has worn off. He has not passed any blood or stool per rectum since surgery. He is continuing IV antibiotics for now. I have explained to him my concern that he may possibly have Crohn's disease due to the way that these fistulae present, and his history of autoimmune disease (psoriasis). Will consider referral to gastroenterology for evaluation. He may go home tomorrow depending on if he is able to have a bowel movement without copious bleeding, and he is able to manage his bowel movements self-care without assistance. Plan: Add MiraLax Ambulate Advance diet to regular consistency Continue IV antibiotic Dispo planning pending patient is able to manage bowel movements and self-care Will need referral to Gastroenterology as an outpatient to workup for Crohn's disease COVID-19 COVID-19 status: Negative Result date/Date tested (Pos, Neg/Pending): 03/16/21 Time Spent With Patient Time with patient: 15-24 minutes Quality VTE Deep Vein Thrombosis/Pulmonary Embolism Present on Admission: No
[2021-03-18] MEDS: polyethylene glycoL 3350 17 GM POWD.PACK PO ×2 (11:12→20:49)
[2021-03-18] MEDS: ACETAMINOPHEN 325 MG TABLET 650 MG PO ×2 (12:54→18:25)
[2021-03-18] MEDS: OXYCODONE IR 5 MG TABLET PO ×2 (14:35→20:59)
[2021-03-18] MEDS: levoFLOXacin 750 MG/150 ML PIGGYBACK 100 MG IV (14:44)
--- NOTE | 2021-03-18 16:38 | P.PN_ITS ---
Subjective Subjective Interval history: Dr. Flynn to assume care of this patient. Hospital Medicine will sign off. Please consult should you have any additiona questions Exam Vital Signs (past 8 hours): - 03/18/21 09:31 03/18/21 09:32 03/18/21 10:05 Temperature Pulse Rate 65 65 69 Respiratory Rate Blood Pressure 121/60 211/60 H 128/70 Pulse Oximetry 03/18/21 14:29 03/18/21 16:05 Temperature 98.8 F 97.5 F L Pulse Rate 69 58 L Respiratory Rate 18 16 Blood Pressure 92/60 111/56 L Pulse Oximetry 97 97 Oxygen Delivery Method Room Air Oxygen Flow Rate 0 Objective Labs Result Diagrams: 03/18/21 06:15 03/18/21 06:15 Labs: Laboratory Results - last 24 hr 03/18/21 03/18/21 06:15 06:15 WBC 9.9 RBC 3.90 L Hgb 11.6 L Hct 33.6 L MCV 86.3 MCH 29.7 MCHC 34.4 RDW 15.1 H Plt Count 227 Neut % (Auto) 86.4 H Lymph % (Auto) 8.6 L [place] % (Auto) 4.3 Eos % (Auto) 0.0 L Baso % (Auto) 0.7 Neut # (Auto) 8600 H Lymph # (Auto) 800 L [place] # (Auto) 400 Eos # (Auto) 0 Baso # (Auto) 100 Sodium 137 Potassium 5.1 Chloride 111 H Carbon Dioxide 20 L BUN 14 Creatinine 0.71 Estimated GFR > 60.0 BUN/Creatinine Ratio 19.7 Glucose 168 H Calcium 8.8 Magnesium 1.9 PFSH Medical History History of atrial fibrillation History of stroke Type 2 diabetes mellitus Surgical History Status post placement of implantable loop recorder Family History Mother Cancer Father Myocardial infarction Black lung disease Social History household members: none Smoking Status: Former smoker alcohol intake: former Quality VTE Deep Vein Thrombosis/Pulmonary Embolism Present on Admission: No
[2021-03-18] MEDS: METFORMIN HCL 500 MG TABLET 1000 MG PO (20:49)
[2021-03-18] MEDS: HEPARIN 5,000 UNIT/ML VIAL 5000 UNIT SUBCUT (20:50)
--- NOTE | 2021-03-18 22:14 | PC.NURSE ---
premedicated pt with oxycodone before change the dressing @2215. no bowel movement today.
[2021-03-18] MEDS: TRAZODONE 50 MG TABLET PO (22:41)
--- NOTE | 2021-03-19 01:43 | PC.NURSE ---
Patient is alert and oriented. Breath sounds diminished but CTA with RA sat of 97%; on continuous oximetry per MD order. HRR but bradycardic at 51 bpm with intermittent drops into upper 40's. Denies nausea. BT present and is passing flatus; had BM yesterday. Denies dysuria, frequency or urgency with urination; voiding per urinal and urine is clear gely. Is able to move himself in bed. Gait not assessed at this time. Reports limited ROM in left UE related to prior CVA. Dressing to right buttock is CDI. Earlier complained of 5/10 buttock pain and was medicated with IV Dilaudid with good results. States the pain has gone from sharp and burning to dull and achy. Psoriasis plaques noted on all extremities and back. Refusing to wear SCD's tonight as he cannot sleep with them on so reminded to ankle wave and patient verbalized understanding. Fall risk score is high and bed alarm is activated.
[2021-03-19 04:08] VITALS: BP 113/47; PULSE 68; RESP 16; TEMP 35.8; O2SAT 96
[2021-03-19] MEDS: SODIUM CHLORIDE 0.9% FLUSH 10 ML IV (04:25)
[2021-03-19] MEDS: metroNIDAZOLE 500 MG/100 ML PIGGYBACK 100 MG IV ×2 (04:25→11:48)
[2021-03-19 06:12] LABS: Add Manual Diff / Slide Review NO; Basophils Absolute Auto 100 /uL (0-100); Basophils Percent Auto 1.2 % (0-2); Eosinophils Absolute Auto 100 /uL (0-450); Eosinophils Percent Auto 0.8 % (2-4); Hematocrit 34.1 % (41-53); Hemoglobin 11.5 g/dL (13.5-17.5); Lymphocytes Absolute Auto 1800 /uL (1100-4500); Lymphocytes Percent Auto 25.8 % (25-40); Mean Corpuscular HGB Conc 33.9 % (30-36); Mean Corpuscular Hemoglobin 29.3 PG (26-34); Mean Corpuscular Volume 86.6 fL (80-100); Monocytes Absolute Auto 500 /uL (0-900); Monocytes Percent Auto 7.6 % (3-14); Neutrophils Absolute Auto 4600 /uL (1500-7000); Neutrophils Percent Auto 64.6 % (50-75); Platelet Count 237 X10^3/uL (150-400); Red Blood Cell Count 3.94 X10^6/uL (4.5-5.9); Red Cell Distribution Width 15.1 % (11.6-14.8); White Blood Cell Count 7.1 X10^3/uL (4.5-11.0)
[2021-03-19 06:22] LABS: BUN Creatinine Ratio 18.4 (6-22); Blood Urea Nitrogen 14 mg/dL (9-20); Calcium 8.7 mg/dL (8.4-10.2); Carbon Dioxide 22 mmol/L (22-32); Chloride 110 mmol/L (98-107); Estimated Glomerular Filt Rate > 60.0 mL/min (>60); Glucose 154 mg/dL (80-110); HEMOLYSIS < 15 (0-50); Magnesium 1.7 mg/dL (1.6-2.3); Potassium 4.4 mmol/L (3.4-5.1); Sodium 138 mmol/L (137-145)
[2021-03-19 08:00] VITALS: BP 127/73; PULSE 57; RESP 16; TEMP 36.9; O2SAT 98
[2021-03-19] MEDS: DOCUSATE 100 MG CAPSULE PO (08:46)
[2021-03-19] MEDS: METFORMIN HCL 500 MG TABLET 1000 MG PO (08:46)
[2021-03-19] MEDS: polyethylene glycoL 3350 17 GM POWD.PACK PO (08:47)
[2021-03-19] MEDS: FLUoxetine 20 MG CAPSULE PO (08:47)
[2021-03-19] MEDS: dilTIAZem CD 120 MG CAP PO (08:47)
[2021-03-19] MEDS: lisinopriL 5 MG TABLET PO (08:47)
[2021-03-19] MEDS: FINASTERIDE 5 MG TABLET PO (08:47)
[2021-03-19] MEDS: OXYCODONE IR 5 MG TABLET PO (08:48)
[2021-03-19] MEDS: METOPROLOL ER 50 MG TABLET 100 MG PO (08:48)
[2021-03-19] MEDS: ATORVASTATIN 20 MG TABLET 80 MG PO (08:48)
[2021-03-19] MEDS: HEPARIN 5,000 UNIT/ML VIAL 5000 UNIT SUBCUT (08:49)
--- NOTE | 2021-03-19 09:26 | PC.NURSE ---
Assess- Patient is alert and oriented x3. BS 136 and patient is no longer getting insulin. His michael rectal/fistula dressing will be changed after patients pain medication starts to take effect. He is eating well at breakfast and voided in his urinal.
--- NOTE | 2021-03-19 11:17 | CM.DPC ---
Addendum entered by Keri Jordan LPN 03/19/21 11:39: Met with pt now after conferring with Ruby and RN coordinator. Pt has a pain medication at 0800 this morning. All confirm he will be fine to drive himself home after lunch. His car is in the hospital parking lot. Pt says he is feeling comfortable with this plan. IMM 2 given. Original Note: DCP: continued: Case received, EMR reviewed and see that Dr. Lozoya signed case over to [facility] team last night. Dr. Alston is here and is discharging pt to home. His wound care is very minimal and Dr. Alston says should be easily managed by pt in his home setting and independently. Stopped in to see pt but he was in the shower. Conferred with SOPHIA Beltran who did say she was unsure how pt would be getting home. Suggested that if he has no one to pick him up he may wish to call a taxi (he lives in [place], very close to the hospital). Will follow up on this if needed. Ruby agreeable to same. IMM #2 will be presented to pt when he is available.
--- NOTE | 2021-03-19 12:52 | PM.DS.1 ---
History of Present Illness History of Present Illness Chief complaint: cyst on lower back. painful. feeling rly tired Discharge Providers Provider Date of admission: 03/16/21 19:17 Discharge Date: 03/19/21 Primary care physician: Lio Chacko MD Discharge provider: Kwan Alston MD Summary Hospital Course Discharge Diagnosis: Multiple perianal abscesses. Hypertension chronic Benign prostatic hypertrophy chronic Elevated cholesterol chronic Type 2 diabetes chronic treated with medicine Hospital Course: Patient was admitted and underwent intraoperative drainage of multiple abscesses that interconnected around his perianal tissues. There was a suspicion the possibility of Crohn's disease. Setons were placed. He was treated with the antibiotics and wound care. He is discharged to follow-up with Dr. Darling on Monday. He was given detailed instructions on care of this wound. After bowel movements he should shower he can sit in a warm tub keep dry gauze between his cheeks. We will plan to refer him to GI to rule out Crohn's disease. Status at Discharge Cognitive/behavioral status at discharge: at baseline, oriented Functional status at discharge: independent ambulation Overall status at discharge: patient is progressing back to baseline Exam Vital Signs (past 8 hours): - 03/19/21 08:00 Temperature 98.4 F Pulse Rate 57 L Respiratory Rate 16 Blood Pressure 127/73 Pulse Oximetry 98 Oxygen Delivery Method Room Air Oxygen Flow Rate 0 Narrative Exam Narrative: Perianal tissues are edematous. Multiple red silastic setons are visible. Abdomen is soft nontender. He has a reducible umbilical hernia. Objective Labs Result Diagrams: 03/19/21 05:50 03/19/21 05:50 Labs: Laboratory Results - last 24 hr 03/19/21 03/19/21 05:50 05:50 WBC 7.1 RBC 3.94 L Hgb 11.5 L Hct 34.1 L MCV 86.6 MCH 29.3 MCHC 33.9 RDW 15.1 H Plt Count 237 Neut % (Auto) 64.6 D Lymph % (Auto) 25.8 [place] % (Auto) 7.6 Eos % (Auto) 0.8 L Baso % (Auto) 1.2 Neut # (Auto) 4600 Lymph # (Auto) 1800 [place] # (Auto) 500 Eos # (Auto) 100 Baso # (Auto) 100 Sodium 138 Potassium 4.4 Chloride 110 H Carbon Dioxide 22 BUN 14 Creatinine 0.76 Estimated GFR > 60.0 BUN/Creatinine Ratio 18.4 Glucose 154 H Calcium 8.7 Magnesium 1.7 PFSH Medical History History of atrial fibrillation History of stroke Type 2 diabetes mellitus Surgical History Status post placement of implantable loop recorder Family History Mother Cancer Father Myocardial infarction Black lung disease Social History household members: none Smoking Status: Former smoker alcohol intake: former Discharge Plan Discharge Plan Patient Disposition: Home Provider Discharge Comment: Your medical condition: You had a large abscess with 2 fistula tracks traveling through it. The fistulae are tunnels which travel from inside the rectum out to the skin through the right buttock. You now have rubber Setons in the fistulae to keep them from closing over to form a new abscess. The Setons will allow drainage to escape rather than collecting under the skin. Medications: You will continue to need antibiotics for about 1 week. 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 You may also need pain medication. Please keep in mind the pain medication can constipate you. Make sure your taking your stool softeners and laxatives. Only take the pain medication as needed. You may also use [id number] pain medications in conjunction with or in place of the prescription pain medicine. Prescriptions were sent to [facility] for you. Wound care and management: You will need to use sanitary pad in your underwear, or wear adult diapers in order to keep the drainage off of your clothing. You will need to rinse off your bottom twice a day and after having bowel movements. You can do this with a hand-held shower nozzle or by sitting in a warm tub for 15 minutes or so after bowel movement. You may gently wipe with baby wipes if necessary. Pat the area dry gently with a towel. You may use a barrier cream to protect the skin such as Desitin or Calmoseptine. These can be purchased [id number]. You can use this on the skin around the anal area to protect it from drainage that comes from the fistulae. You may put this cream on as needed, before and after bowel movements, and after cleaning. Follow-up care: Please make an appointment to see Dr. Darling at [facility] next week on March 22,, or . The eventual goal will be to have the tissue surrounding the fistulae to heal, and then to address the fistulae once the surrounding tissue has healed. Meanwhile, it will be important to rule out inflammatory bowel disease. Sometimes complex fistulae are seen in conjunction with inflammatory bowel diseases such as Crohn's disease. You may be referred to a ore dryer to evaluate you for inflammatory bowel disease, or you may be evaluated by 1 of the surgeons at [facility]. Bowel care: It is important to avoid and prevent constipation while you are healing and recovering. You may use a fiber such as Metamucil or Benefiber, and a laxative such as MiraLax to help prevent constipation and straining. These can be purchased [id number] your pharmacy. Metamucil: Use 2 tspn in 8 oz water once daily to start. You may increase or decrease the amount and frequency as needed. The goal is to have a soft, formed, stool without straining, and without having to sit on the toilet for more than 2 minutes to have a bowel movement. MiraLax: Take 1-3 times per day, reduce doses if stool is too loose, and increase if constipated. Your home medications: You may restart your Eliquis. You should watch closely for bleeding. You may take your other home medications as prescribed. If you are still taking tramadol, do not take tramadol while using oxycodone. Emergency concerns: If you have bleeding from the fistula the sites, you should stop your Eliquis and call the [facility] office. If you call after hours please choose the option to contact the surgeon business applications manager rather than leaving a message. If you have fevers, worsening pain, worsening drainage, or other concerns, please call [facility]. Discharge orders & Medications Prescriptions: New metronidazole 500 mg tablet 500 mg PO Q8H Qty: 21 RF: 0 levofloxacin 750 mg tablet 750 mg PO Q24H Qty: 7 RF: 0 docusate sodium 100 mg capsule 100 mg PO BID Qty: 20 RF: 0 oxycodone 5 mg tablet 5 mg PO Q6H PRN (Reason: post operative pain) Qty: 20 RF: 0 Continued Eliquis 5 mg tablet 5 mg PO BID RF: 0 atorvastatin 80 mg tablet 80 mg PO DAILY RF: 0 diltiazem HCl [Cartia XT] 120 mg capsule,extended release 24hr 120 mg PO DAILY RF: 0 trazodone 50 mg tablet 50 mg PO BEDTIME RF: 0 metoprolol succinate 100 mg tablet extended release 24 hr 100 mg PO DAILY RF: 0 tramadol 50 mg tablet 50 mg PO Q6HR PRN (Reason: Pain (Scale Score 7-10)) RF: 0 pantoprazole 40 mg tablet,delayed release (DR/EC) 40 mg PO DAILY RF: 0 metformin 1,000 mg tablet 1,000 mg PO BID RF: 0 lisinopril 5 mg tablet 5 mg PO DAILY RF: 0 albuterol sulfate [ProAir HFA] 90 mcg/actuation HFA aerosol inhaler 2 puff INHALATION Q6HR PRN (Reason: Wheezing) RF: 0 fluoxetine 20 mg capsule 20 mg PO DAILY RF: 0 finasteride 5 mg tablet 5 mg PO DAILY RF: 0 Jardiance 10 mg tablet 10 mg PO DAILY RF: 0 Follow up/Referrals: Lio Chacko MD [Primary Care Provider] - Lucille Darling MD [Physician] - 03/23/21 10:30 am ( She will check the wound and discuss referral to gastroenterology for you to be evaluated for Crohn's.) Diet/Activity/Treatments Diet: Diet as Tolerated Activity: as tolerated. Do not drive if taking narcotics for pain Skin/Wound/Dressing Care Report to your healthcare provider any signs of infection, such as:: chills, fever, night sweats, increased pain and unusual drainage Dressing: dry gauze between cheeks. Pad in underware to prevent soiling underware. Visit Report/Discharge Packet Instructions: DI for Prescription Opioid Use Stand Alone Forms: Surgery Discharge Discharge Data Primary Care Provider: Lio Chacko Quality VTE Deep Vein Thrombosis/Pulmonary Embolism Present on Admission: No
== END 2021-03-19 13:30 | disposition home or self-care (01) | DRG 349 ==
LOC: ED 14:10 → AC 19:47
PROVIDERS: Emergency Medicine; Admitting Provider Nurse Practitioner Family; Emergency Provider Emergency Medicine; Family Provider Family Medicine; PCP Family Medicine; Referring Provider Emergency Medicine; Visit Provider Surgery
PROC: 0D9Q70Z Drainage of Anus with Drainage Device, Via Natural or Artificial Opening (ICD-10-PCS; CPT 45990; principal; 2021-03-17 14:15)
DX: K50.114 Crohn's disease of large intestine with abscess (principal); K50.113 Crohn's disease of large intestine with fistula; E11.65 Type 2 diabetes mellitus with hyperglycemia; I10 Essential (primary) hypertension; F32.9 Major depressive disorder, single episode, unspecified; K21.9 Gastro-esophageal reflux disease without esophagitis; E78.5 Hyperlipidemia, unspecified; L40.9 Psoriasis, unspecified; E11.40 Type 2 diabetes mellitus with diabetic neuropathy, unspecified; Z20.822 Contact with and (suspected) exposure to COVID-19; Z95.818 Presence of other cardiac implants and grafts; Z79.84 Long term (current) use of oral hypoglycemic drugs; Z87.891 Personal history of nicotine dependence
CPT/HCPCS: 36415; 46045; 74177; 80048; 80053; 81001; 82962; 83036; 83605; 83690; 83735; 84145; 85025; 85610; 87040; 87635; 93005; 93010; 94640; 94762; 96365; 96366; 96367; 96375; 96376; 99221; 99285; C9803; J0330; J1100; J1170; J1644; J1815; J1956; J2405; J2704; J3010; Q9967

== ENCOUNTER → 2021-05-18 10:15 | Outpatient (CLI) | payer MEDICARE, SELFPAY ==
[2021-05-12 11:22] VITALS: BMI 27.0
[2021-05-18 12:24] LABS: COVID19 -Nasal RAPID Negative (Negative)
== END ==
PROVIDERS: Family Provider Family Medicine; PCP Family Medicine; Referring Provider Specialist; Visit Provider Specialist
DX: Z01.812 Encounter for preprocedural laboratory examination (principal); Z20.822 Contact with and (suspected) exposure to COVID-19
CPT/HCPCS: 87635; C9803

== ENCOUNTER 2021-05-19 14:21 | Day surgery (SDC) | payer MEDICARE, SELFPAY ==
[2021-05-12 11:22] VITALS: BMI 27.0
--- NOTE | 2021-05-19 | PATH_ITS ---
[facility] Accession Number: [id number] . 01 Material submitted: . PART A: colon - COLON POLYP AT 90 CM PART B: colon - COLON POLYP BIOPSY AT 70 CM PART C: colon - COLON POLYP AT 60 CM . 01 Clinical history: . SDC . 02 Diagnosis: A. Colon Polyp at 90 cm: Hyperplastic polyp. . B. Colon Polyp Biopsy at 70 cm: Multiple (approximately five) portions of tubular adenoma. . C. Colon Polyp at 60 cm: Hyperplastic polyp. MRV 05/21/2021 0954 Local . 02 Electronically signed: . Brielle Burden MD, Pathologist NPI- [id number] . 01 Gross description: . Part A: COLON POLYP AT 90 CM: Received in formalin is 1 fragment(s) of arboleda, soft tissue measuring 0.9 x 0.3 x 0.3 cm submitted entirely in 1 cassette(s) Part B: COLON POLYP BIOPSY AT 70 CM: Received in formalin are multiple fragment(s) of arboleda, soft tissue measuring 2.2 x 0.3 x 0.2 cm in aggregate submitted entirely in 1 cassette(s) Part C: COLON POLYP AT 60 CM: Received in formalin is 1 fragment(s) of arboleda, soft tissue measuring 0.5 x 0.2 x 0.2 cm submitted entirely in 1 cassette(s) /BRENDA 05/20/2021 0532 Local . 02 Pathologist provided ICD-10: K61.0, K63.5 . 02 CPT . 611192, [id number], 264018 Performed at: 01 [facility] [address] [place] [address] [address], [place], [place] [id number] MD Chauncey Easton MD Phone: [phone] Performed at: 02 [facility] [place] [address] [place] [id number] MD Yolanda Warren MD Phone: [phone]
[2021-05-19 14:54] VITALS: BP 130/72; PULSE 76; RESP 16; TEMP 36.8; O2SAT 98; BMI 26.4
[2021-05-19] MEDS: LACTATED RINGERS 1,000 ML 100 ML IV (15:16)
--- NOTE | 2021-05-19 17:00 | PM.PREOP ---
Pre-operative Note COVID-19 COVID-19 status: Negative Result date/Date tested (Pos, Neg/Pending): 05/19/21 Interval Note History & Physical reviewed/Exam performed by Physician: Yes Changes to H&P: Yes H&P completed within 30 days and has changed as indicated here:: I have discussed the procedure and the rationale with the patient including risks of bleeding, perforation which would necessitate a major operation, failure to find remove all lesions and the potential to tattoo. They appeared to understand and wished to proceed. Because of his complex medical issues and pain in his anal area an anesthesiologist will provide deep sedation.
[2021-05-19] MEDS: SODIUM CHLORIDE 0.9% 1,000 ML 84 ML IV (17:35)
[2021-05-19 17:53] VITALS: BP 138/78; PULSE 80; RESP 16; TEMP 36.5; O2SAT 97
--- NOTE | 2021-05-19 17:56 | PM.OP.ENDO ---
Operative Date/Time/Diagnoses Date of procedure: 05/19/21 Time of procedure: 17:56 Pre-op diagnosis: Complex perianal abscesses rule out Crohn's disease. Last colonoscopy over 15 years ago. Post-op diagnosis: other (No evidence of ulcerative colitis or Crohn's disease. Three small polyps removed. Patient had trans colonic diverticulosis.) Procedure & Clinicians Study performed: Colonoscopy with cold biopsy Same procedure as scheduled: Yes Indications: Patient with complex perianal abscess and psoriasis brought to evaluate for the possibility of inflammatory brow disease associated with perianal abscesses and psoriasis. It has been 15 years since his last colonoscopy so he is due for screening for colon cancer as well. Surgeon: Kwan Alston Procedure Notes SCOAP/Timeout: Performed Procedure in detail: The patient was placed in the left lateral decubitus position and underwent monitored anesthesia care provided by an anesthesiologist due to the patient's complex medical problems and the pain and tenderness in his anal area.. Digital exam was remarkable for 2 setons and a decreased sphincter tone.. The scope was inserted and advanced through the rectum into the sigmoid, descending, transverse, and ascending colon. Diverticulosis was noted throughout the colon but principally in the sigmoid and ascending colon. One small polyp was removed at about 90 cm from the anal verge using cold biopsy forceps.. The cecum was reached identified by the ileocecal valve and the appendiceal opening. The ileocecal valve was successfully cannulated. The terminal ileum was normal in appearance. The scope was gradually brought out. Additional Polyps were found at 70(two) and 60(one) cm from the anal verge. These were small and were biopsied and removed.. The scope ultimately was retroflexed in the rectum. The appearance was remarkable for a little scarring probably from murmurs prior operation.. The scope was removed and the patient tolerated the procedure well. There was no evidence of any sort of colitis or inflammatory bowel disease. The prep was adequate. Scope withdrawal time: 9 minutes(12 total) Findings: diverticulosis Specimen(s): other (Polyps) Complications: none Post-procedure Recommendations: Colonscopy in 5 years Plan for aftercare: Will take to the operating room to definitively treat his fistulae Follow up: weeks (1-2) Disposition: PACU
[2021-05-19 17:58] VITALS: BP 138/73; PULSE 77; RESP 16; O2SAT 98
[2021-05-19 18:02] VITALS: BP 140/72; PULSE 71; RESP 16; O2SAT 97
[2021-05-19 18:22] VITALS: BP 122/72; PULSE 78; RESP 16; TEMP 36.6; O2SAT 98
== END 2021-05-19 18:26 | disposition home or self-care (01) ==
PROVIDERS: Family Provider Family Medicine; PCP Family Medicine; Referring Provider Specialist; Visit Provider Specialist
PROC: 0DJD8ZZ Inspection of Lower Intestinal Tract, Via Natural or Artificial Opening Endoscopic (ICD-10-PCS; CPT 45378; principal; 2021-05-19 15:45)
DX: K57.30 Diverticulosis of large intestine without perforation or abscess without bleeding (principal); L40.9 Psoriasis, unspecified; J44.9 Chronic obstructive pulmonary disease, unspecified; E11.9 Type 2 diabetes mellitus without complications; I69.354 Hemiplegia and hemiparesis following cerebral infarction affecting left non-dominant side; K63.5 Polyp of colon
CPT/HCPCS: 45380; 82962

== ENCOUNTER → 2021-06-03 10:12 | Outpatient (CLI) | payer MEDICARE, SELFPAY ==
[2021-05-12 11:22] VITALS: BMI 27.0
[2021-06-03 10:41] LABS: COVID19 -Nasal RAPID Negative (Negative)
== END ==
PROVIDERS: Family Provider Family Medicine; PCP Family Medicine; Visit Provider Specialist
DX: Z01.812 Encounter for preprocedural laboratory examination (principal); Z20.822 Contact with and (suspected) exposure to COVID-19
CPT/HCPCS: 87635; C9803

== ENCOUNTER 2021-06-04 06:46 | Day surgery (SDC) | payer MEDICARE, SELFPAY ==
[2021-05-12 11:22] VITALS: BMI 27.0
[2021-06-02 11:48] VITALS: BMI 26.4
[2021-06-04] VITALS (10 sets, daily range): BP systolic 114–149; BP diastolic 58–72; PULSE 64–81; RESP 12–20; TEMP 36.3–36.7; O2SAT 97–99; BMI 26.4
--- NOTE | 2021-06-04 07:37 | PM.PREOP ---
Pre-operative Note COVID-19 COVID-19 status: Negative Result date/Date tested (Pos, Neg/Pending): 06/03/21 Interval Note History & Physical reviewed/Exam performed by Physician: Yes Changes to H&P: No
[2021-06-04] MEDS: LACTATED RINGERS 1,000 ML 42 ML IV (07:38)
[2021-06-04] MEDS: INSULIN REGULAR 100 UNIT/ML 3 ML VIAL IV ×2 (07:47→09:08)
[2021-06-04] MEDS: BUPIVACAINE 0.5% (PF) VIAL 30 ML INJ (08:22)
[2021-06-04] MEDS: EPINEPHrine 1 MG/ML 0.15 MG INJ (08:23)
--- NOTE | 2021-06-04 09:21 | P.OP_ITS ---
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 Same procedure as scheduled: Yes Indications: Patient with chronic setons in place and induration in the perianal skin between 2 setons. Patient was brought in for definitive surgery if possible. He had a negative colonoscopy for Crohn's or other inflammatory bowel disease. Surgeon: Kwan Alston Click Yes if Unassisted: Yes Anesthesia Type: General Operative Notes Findings: Perianal abscess connecting the 2 seton tracks. The tract had completely re-epithelialization with skin. There was a hard dark foreign body measuring about 4 x 4 mm in the center of the abscessed area. Closure Type: not applicable Specimen(s): none sent Prosthetic devices, grafts, tissues, transplants, or devices: None Estimated Blood Loss (mL): 25 Blood products transfused: none Procedure in detail: Patient underwent general was prepped and draped in the usual fashion. Thurston examination and digital exam revealed mild induration in the area where the setons entered the anal canal. There were 2 setons and both of them exited from the same opening but 1 went at about the 1 o'clock position 1 about the 2 o'clock position from the common internal opening. They came out the perianal skin and between them was an indurated area. I began by incising the indurated area and I encountered a hard foreign body of uncertain type. I removed this and there was a cavity of granulation tissue that connected into the 2 perianal skin openings of the setons. Excised the skin overlying this cavity and the setons actually joined together into 1 tract. This tract was lined with epithelialized tissue that looked like skin. There was induration at the common opening internally. It did not feel like a large amount if any sphincter was involved with the path of the seton and therefore I divided the tissue overlying the setons in remove them. It did not appear I had divided any muscle. I was now left with an epithelialized tract that had the potential to close over and recreate a fistula. I excised this re-epithelialization tract to expose the underlying soft tissues. I curetted out the granulation tissue in the abscess cavity and cleaned it out with not only a bone curette but also a cause abrading technique. Betadine is reapplied and local anesthetic infiltrated. The wound was packed with gauze containing 0.5% Marcaine with epinephrine. Dressing was applied over this and the patient was placed back on his stretcher awakened extubated and taken the recovery room good condition. There were no apparent complications. Complications: none Post-operative Condition: stable Disposition: PACU
--- NOTE | 2021-06-04 09:23 | SUR.PHASEI ---
Pt received to PACU after general anesthesia. Airway patent, self maintained. Report from Dr Dougherty and SOPHIA Virk.
[2021-06-04] MEDS: OXYCODONE/ACETAMINOPHEN 5/325 TABLET 1 TAB PO (10:16)
--- NOTE | 2021-06-04 10:41 | SUR.PHASEII ---
Assumed care from Lebron. D/C instructions discussed with pt and Nasreen both voiced an understanding. Pt given sitz bath and extra panties and pads. Pt and Nasreen aware to pick pain med up at [facility]. Blood sugar 191, pt asymptomatic, s/s of low blood sugar discussed with pt and Nasreen as well. Both voiced an understanding. Pt left with belongings and left when ready and in stable condition.
== END 2021-06-04 10:35 | disposition home or self-care (01) ==
PROVIDERS: Family Provider Family Medicine; PCP Family Medicine; Referring Provider Specialist; Visit Provider Specialist
PROC: (CPT 46030; principal; 2021-06-04 07:45)
DX: K61.0 Anal abscess (principal); E11.9 Type 2 diabetes mellitus without complications
CPT/HCPCS: 46030; 46050; 82962; J0171; J1100; J1885; J2250; J2405; J2704; J3010

== ENCOUNTER 2023-07-28 15:07 | Emergency (ER) | payer MEDICARE, SELFPAY ==
[2023-07-04 08:36] VITALS: BMI 27.0
[2023-07-28 15:49] VITALS: BP 191/101; PULSE 88; RESP 18; TEMP 36.9; O2SAT 98; BMI 24.3
--- NOTE | 2023-07-28 15:55 | DI.RAD.S_ITS ---
PROCEDURE: XR SHOULDER LT MIN 2V INDICATIONS: left shoulder pain/fall TECHNIQUE: 3 views of the shoulder were acquired. COMPARISON: None. FINDINGS: Bones: No fractures or dislocations. No suspicious bony lesions. Visualized ribs appear intact. Soft tissues: No suspicious soft tissue calcifications. IMPRESSION: No acute radiographic findings. If pain persists, followup imaging in 5-7 days is recommended to exclude occult fracture. Dictated by: Roberta Wall M.D. on 07/28/2023 at 16:58 Approved by: Roberta Wall M.D. on 07/28/2023 at 16:58
--- NOTE | 2023-07-28 15:55 | DI.CT.S_ITS ---
PROCEDURE: CT HEAD/BRAIN WO CON INDICATIONS: Fall/hit head/on thinners neck pain TECHNIQUE: Noncontrast 4.5 mm thick angled axial sections acquired from the foramen magnum to the vertex, with coronal and sagittal reformats. For radiation dose reduction, the following was used: automated exposure control, adjustment of mA and/or kV according to patient size. COMPARISON: None. FINDINGS: Image quality: Excellent. CSF spaces: Basal cisterns are patent. No extra-axial fluid collections. The ventricles are symmetric in size and shape. Brain: No intracranial bleeds or masses. Note is made of encephalomalacia within the right hemispheric parenchyma, in the vascular distribution of the right middle cerebral artery. There is cerebral volume loss for age, with resultant ventricular and sulcal prominence. There are periventricular and deep white matter chronic small vessel ischemic changes. There is intracranial internal carotid artery atherosclerosis. Skull and face: Calvarium and visualized facial bones appear intact, without suspicious lesions. Sinuses: Visualized sinuses and mastoids are clear. IMPRESSION: No acute disease. Old stroke is presumed, with encephalomalacia right middle cerebral artery vascular distribution. No intracranial hemorrhage. Dictated by: Tommy Fatima M.D. on 07/28/2023 at 16:28 Approved by: Tommy Fatima M.D. on 07/28/2023 at 16:29
--- NOTE | 2023-07-28 15:55 | DI.CT.S_ITS ---
PROCEDURE: CT CERVICAL SPINE WO CON INDICATIONS: FALL/HIT HEAD/ON THINNERS NECK PAIN TECHNIQUE: Noncontrast 3 mm thick sections acquired from the skull base to the T4 level. Sagittal and coronal reformats were then constructed. For radiation dose reduction, the following was used: automated exposure control, adjustment of mA and/or kV according to patient size. COMPARISON: None. FINDINGS: Image quality: Excellent. Bones: No fractures or dislocations. Bridging osteophytes along the anterior longitudinal ligament are noted from C2 to T1. Visualized superior ribs are intact. Soft tissues: Prevertebral soft tissues are normal in thickness. No paravertebral hematomas. No apical pneumothoraces. IMPRESSION: No acute trauma found. Bridging osteophytes discussed above from anterior C2 to the upper anterior border of T1 results in relative ankylosis in this patient through this area increasing risk of significant traumatic injury to the cervical spine. Dictated by: Tommy Fatima M.D. on 07/28/2023 at 16:30 Approved by: Tommy Fatima M.D. on 07/28/2023 at 16:32
[2023-07-28] MEDS: HYDROCODONE/ACET 5/325 TABLET 1 TAB PO (19:17)
[2023-07-28 19:26] VITALS: BP 215/100
[2023-07-28 19:27] VITALS: PULSE 105; O2SAT 98
[2023-07-28 19:30] VITALS: BP 198/93; PULSE 100; O2SAT 97
--- NOTE | 2023-07-28 19:39 | ED.FALL ---
HPI - Fall General Chief Complaint: Fall Stated Complaint: L shoulder pain/fall Time Seen by Provider: 07/28/23 18:01 Source: patient Mode of arrival: Wheelchair History of Present Illness HPI Narrative: 72-year-old male who is here for evaluation of a head injury and left shoulder injury. Patient reports that he was in his kitchen. He bent over and lost his balance and fell forward. There was no loss of consciousness. No other injuries from the event. Prior to the fall he did not have chest pain or shortness of breath or lightheadedness. Reports no injuries to his lower extremities. Related Data Home Medications Medication Instructions Recorded Confirmed albuterol sulfate 90 mcg/actuation 2 puff inhalation Q6HR PRN Wheezing 03/16/21 08/12/21 aerosol inhaler (ProAir HFA) atorvastatin 80 mg tablet 80 mg PO DAILY 03/16/21 08/12/21 diltiazem HCl 120 mg 120 mg PO DAILY 03/16/21 08/12/21 capsule,extended release 24 hr (Cartia XT) finasteride 5 mg tablet 5 mg PO DAILY 03/16/21 08/12/21 fluoxetine 20 mg capsule 20 mg PO DAILY 03/16/21 08/12/21 lisinopril 5 mg tablet 5 mg PO DAILY 03/16/21 08/12/21 metformin 1,000 mg tablet 1,000 mg PO BID 03/16/21 08/12/21 metoprolol succinate 100 mg 100 mg PO DAILY 03/16/21 08/12/21 tablet,extended release 24 hr pantoprazole 40 mg tablet,delayed 40 mg PO DAILY 03/16/21 08/12/21 release Previous Rx's Medication Instructions Recorded cyclobenzaprine 10 mg tablet 10 mg PO TID PRN muscle spasm #12 07/28/23 tabs hydrocodone 5 mg-acetaminophen 325 1 tab PO Q8H PRN pain #10 tabs 07/28/23 mg tablet Allergies Allergy/AdvReac Type Severity Reaction Status Date / Time No Known Drug Allergies Allergy Verified 07/28/23 15:49 Review of Systems Constitutional Constitutional: Reports system reviewed and no additional complaints, except as documented Cardiovascular Cardiovascular: Reports system reviewed and no additional complaints, except as documented Respiratory Respiratory: Reports system reviewed and no additional complaints, except as documented Musculoskeletal Musculoskeletal: Reports system reviewed and no additional complaints, except as documented Neurologic Neurologic: Reports system reviewed and no additional complaints, except as documented Patient History Medical History (Updated 07/28/23 @ 20:25 by Hever Keith DO) Urinary retention (~01/06/20) Congestive heart failure (~01/06/20) High cholesterol Carotid artery stenosis (~01/06/20) Vision disorder Hearing loss Psoriasis (~04/20/09) Asthma Allergies Depression Stroke (~01/06/20) Ankle pain GERD (gastroesophageal reflux disease) (~10/01/10) HLD (hyperlipidemia) HTN (hypertension) (~01/06/20) COPD (chronic obstructive pulmonary disease) Abscess of buttock (~04/19/21) History of stroke (11/2019) History of atrial fibrillation (~2019) Type 2 diabetes mellitus (~2009) Surgical History (Updated 06/13/23 @ 21:23 by Dana Lyle) Anesthesia Fistula History of hernia repair Status post placement of implantable loop recorder Family History (Updated 06/13/23 @ 21:24 by Dana Lyle) Mother Cancer Father Myocardial infarction Black lung disease Brother Diabetes mellitus Social History household members: none Smoking Status: Former smoker alcohol intake: former Smoking Status: Former smoker alcohol intake frequency: 0-2 drinks per day Substance Use Type: does not use Exam Initial Vital Signs Initial Vital Signs: Vital Signs Temperature 98.4 F 07/28/23 15:49 Pulse Rate 88 07/28/23 15:49 Respiratory Rate 18 07/28/23 15:49 Blood Pressure 191/101 H 07/28/23 15:49 Pulse Oximetry 98 07/28/23 15:49 Oxygen Delivery Method Room Air 07/28/23 15:49 Const General: cooperative and comfortable HENMT Head: normal to inspection and normocephalic Resp Effort & Inspection: normal respiratory effort Cardio Rate: regular rate Back/Spine/Pelvis Other: Left-sided paraspinal cervical region Skin General: no rashes or lesions noted Neuro General: patient alert, patient awake, patient oriented x3 and moves all extremities Extrem Other: Discomfort with the superior posterior aspect of the left shoulder and also they paraspinal cervical region. Scores GCS [place] coma scale eye opening: Spontaneous [place] coma scale verbal response: Orientated Charity coma scale motor response: Obey commands [place] coma scale total score: 15 Course Orders Ordered: Discontinued Medications Hydrocodone Bitart/Acetaminophen (Hydrocodone/Acet 5/325 Tablet) 1 tab PO NOW ONE Stop: 07/28/23 18:50 Last Admin: 07/28/23 19:17 Dose: 1 tab Documented By: KEDAR Hydrocodone Bitart/Acetaminophen (Hydrocodone/Acet 5/325 Prepack) 1 bottle MISC SEEINSTR ONE Stop: 07/28/23 20:23 Last Admin: 07/28/23 20:38 Dose: 1 bottle Documented By: UMU Cyclobenzaprine HCl (Cyclobenzaprine 10 Mg Prepack) 1 bottle MISC SEEINSTR ONE Stop: 07/28/23 20:23 Last Admin: 07/28/23 20:38 Dose: 1 bottle Documented By: UMU Diazepam (Diazepam 5 Mg Tablet) 5 mg PO NOW ONE Stop: 07/28/23 19:40 Last Admin: 07/28/23 19:53 Dose: 5 mg Documented By: UMU Vital Signs Vital signs: Vital Signs - 8 hr 07/28/23 19:26 07/28/23 19:27 07/28/23 19:30 Pulse Rate 105 H 100 H Respiratory Rate Blood Pressure 215/100 H Pulse Oximetry 98 97 Oxygen Delivery Method 07/28/23 19:30 07/28/23 19:54 07/28/23 20:30 Pulse Rate 98 H Respiratory Rate 16 Blood Pressure 198/93 H 208/96 H Pulse Oximetry 96 99 Oxygen Delivery Method Room Air MDM - Fall Imaging Data CT - cervical spine: Radiologist's Impression: No acute trauma found. Bridging osteophytes discussed above from anterior C2 to the upper anterior border of T1 results in relative ankylosis and this patient through this area increasing risk of significant traumatic injury to cervical spine CT scan - head: Radiologist's Impression: No acute disease. Old stroke is presumed with encephalomalacia right middle cerebral artery vascular distribution. Extremity x-ray #1: Radiologist's Impression: No fractures or dislocations [facility] Narrative Medical decision making narrative: CT scan and shoulder x-ray showed no acute pathology. He was neurovascularly intact. He does have left-sided paraspinal tenderness. I do suspect muscular etiology. He did feel somewhat better after the pain medication and muscle relaxer patient is alert oriented x3. Is ambulatory. Will discharge patient home with return precautions. He expressed understanding agreement with plan. Discharge Plan Departure Patient Disposition: Home Clinical Impression: Cervical paraspinal muscle spasm Instructions: DI for Muscle Spasm Activity Restrictions/Additional Instructions: No restrictions on your activities. Please use the medications as needed and as directed. You can try other conservative measures such as heat and ice and massage. Return to the emergency department for new or worsening symptoms. Prescriptions: New cyclobenzaprine 10 mg tablet 10 mg PO TID PRN (Reason: muscle spasm) Qty: 12 0RF hydrocodone-acetaminophen 5-325 mg tablet 1 tab PO Q8H PRN (Reason: pain) Qty: 10 0RF No Action atorvastatin 80 mg tablet 80 mg PO DAILY diltiazem HCl [Cartia XT] 120 mg capsule,extended release 24hr 120 mg PO DAILY metoprolol succinate 100 mg tablet extended release 24 hr 100 mg PO DAILY pantoprazole 40 mg tablet,delayed release (DR/EC) 40 mg PO DAILY metformin 1,000 mg tablet 1,000 mg PO BID lisinopril 5 mg tablet 5 mg PO DAILY albuterol sulfate [ProAir HFA] 90 mcg/actuation HFA aerosol inhaler 2 puff INHALATION Q6HR PRN (Reason: Wheezing) fluoxetine 20 mg capsule 20 mg PO DAILY finasteride 5 mg tablet 5 mg PO DAILY Referrals: Lio Chacko MD [Primary Care Provider] - Stand Alone Forms: Patient Portal/API
[2023-07-28] MEDS: diazePAM 5 MG TABLET PO (19:53)
[2023-07-28 19:54] VITALS: O2SAT 96
[2023-07-28 20:30] VITALS: BP 208/96; PULSE 98; RESP 16; O2SAT 99
[2023-07-28] MEDS: HYDROCODONE/ACET 5/325 PREPACK 1 BOTTLE MISC (20:38)
[2023-07-28] MEDS: CYCLOBENZAPRINE 10 MG PREPACK 1 BOTTLE MISC (20:38)
== END 2023-07-28 20:41 | disposition home or self-care (01) ==
PROVIDERS: Emergency Provider Emergency Medicine; Family Provider Family Medicine; PCP Family Medicine
DX: M62.838 Other muscle spasm (principal); S09.90XA Unspecified injury of head, initial encounter; W18.30XA Fall on same level, unspecified, initial encounter
CPT/HCPCS: 70450; 72125; 73030; 99283; 99284

== ENCOUNTER → 2023-08-08 16:18 | Outpatient (CLI) | payer MEDICARE, SELFPAY ==
[2023-07-04 08:36] VITALS: BMI 27.0
[2023-08-08 17:17] LABS: Add Manual Diff / Slide Review NO; Basophils Absolute Auto 0 /uL (0-100); Basophils Percent Auto 0.6 % (0-2); Eosinophils Absolute Auto 400 /uL (0-450); Eosinophils Percent Auto 5.7 % (2-4); Hematocrit 35.8 % (41-53); Hemoglobin 12.2 g/dL (13.5-17.5); Lymphocytes Absolute Auto 1000 /uL (1100-4500); Lymphocytes Percent Auto 14.8 % (25-40); Mean Corpuscular HGB Conc 34.2 % (30-36); Mean Corpuscular Hemoglobin 29.6 PG (26-34); Mean Corpuscular Volume 86.4 fL (80-100); Monocytes Absolute Auto 600 /uL (0-900); Monocytes Percent Auto 9.7 % (3-14); Neutrophils Absolute Auto 4600 /uL (1500-7000); Neutrophils Percent Auto 69.2 % (50-75); Platelet Count 304 X10^3/uL (150-400); Red Blood Cell Count 4.14 X10^6/uL (4.5-5.9); White Blood Cell Count 6.7 X10^3/uL (4.5-11.0)
[2023-08-08 17:28] LABS: Hemoglobin A1C% w Est Avg Glu 7.2 % (4.0-6.0)
[2023-08-08 17:37] LABS: Alanine Aminotransferase 21 IU/L (<50); Albumin 4.1 g/dL (3.5-5.0); Albumin Globulin Ratio 1.2 (1.0-2.8); Alkaline Phosphatase 134 U/L (38-126); Aspartate Aminotransferase 24 IU/L (17-59); BUN Creatinine Ratio 10.5 (6-22); Bilirubin Total 0.7 mg/dL (0.2-1.3); Blood Urea Nitrogen 9 mg/dL (9-20); Calcium 9.3 mg/dL (8.4-10.2); Carbon Dioxide 31 mmol/L (22-32); Chloride 94 mmol/L (98-107); Estimated Glomerular Filt Rate > 60 mL/min (>60); Globulin 3.4 g/dL (1.7-4.1); Glucose 100 mg/dL (80-110); HEMOLYSIS < 15 (0-50); Potassium 3.6 mmol/L (3.4-5.1); Sodium 131 mmol/L (137-145); Total Protein 7.5 g/dL (6.3-8.2)
[2023-08-08 17:40] LABS: NT-proBNP (BNP-Adult 18+) 394 pg/mL (<125)
[2023-08-08 17:48] LABS: Vitamin D 25 Hydroxy (D3) 22.6 ng/mL (30.0-100.0)
[2023-08-08 18:04] LABS: TSH w/ Reflex to FT4 2.64 uIU/mL (0.47-4.68)
[2023-08-08 18:11] LABS: Creatinine Urine Random 129.9 mg/dL
[2023-08-08 18:22] LABS: Vitamin B12 434 pg/mL (239-931)
[2023-08-08 18:37] LABS: Microalbumin Urine Random 24.3 mg/dL (0-1.6)
== END ==
PROVIDERS: Family Provider Family Medicine; PCP Family Medicine; Referring Provider Physician Assistant; Visit Provider Physician Assistant
DX: R01.1 Cardiac murmur, unspecified (principal); I50.9 Heart failure, unspecified; E11.9 Type 2 diabetes mellitus without complications; Z12.5 Encounter for screening for malignant neoplasm of prostate; R53.83 Other fatigue; I10 Essential (primary) hypertension; Z86.79 Personal history of other diseases of the circulatory system; E55.9 Vitamin D deficiency, unspecified
CPT/HCPCS: 80053; 82043; 82306; 82570; 82607; 83036; 83880; 84443; 85025; G0103

== ENCOUNTER 2023-08-19 05:19 | Emergency (ER) | payer MEDICARE, SELFPAY ==
[2023-07-04 08:36] VITALS: BMI 27.0
[2023-08-19] VITALS (23 sets, daily range): BP systolic 161–216; BP diastolic 71–163; PULSE 103–120; RESP 12–21; TEMP 36.6–36.8; O2SAT 92–99; BMI 29.0
--- NOTE | 2023-08-19 05:24 | DI.RAD.S_ITS ---
PROCEDURE: XR SHOULDER LT MIN 2V INDICATIONS: fall with pain TECHNIQUE: 2 views of the shoulder were acquired. COMPARISON: [facility], , XR SHOULDER LT MIN 2V, 07/28/2023, 16:12. FINDINGS: Bones: No fractures or dislocations. Osteoarthritic changes are again seen in acromioclavicular joint and glenohumeral joint. No suspicious bony lesions. Visualized ribs appear intact. Soft tissues: No suspicious soft tissue calcifications. IMPRESSION: No acute left shoulder fracture or dislocation. No discrepancies. Dictated by: Jonathan Sotelo M.D. on 08/19/2023 at 8:19 Approved by: Jonathan Sotelo M.D. on 08/19/2023 at 8:19
--- NOTE | 2023-08-19 05:24 | DI.RAD.S_ITS ---
PROCEDURE: XR LUMBAR SPINE 2-3V INDICATIONS: fall with pain TECHNIQUE: 3 views of the lumbar spine were acquired. COMPARISON: None. FINDINGS: Bones: 5 [id number] vertebrae are present. There is normal bony alignment. Degenerative endplate changes are noted throughout lumbar spine. No vertebral body compression fractures. No suspicious bony lesions. Soft tissues: Overlying bowel gas pattern is normal. No suspicious soft tissue calcifications. IMPRESSION: No acute compression fracture or spondylolisthesis in lumbar spine. Degenerative disc disease throughout lower thoracic and lumbar spine. No discrepancies. Dictated by: Jonathan Sotelo M.D. on 08/19/2023 at 8:18 Approved by: Jonathan Sotelo M.D. on 08/19/2023 at 8:19
--- NOTE | 2023-08-19 05:24 | DI.CT.S_ITS ---
PROCEDURE: CT CERVICAL SPINE WO CON INDICATIONS: fall TECHNIQUE: Noncontrast 3 mm thick sections acquired from the skull base to the T4 level. Sagittal and coronal reformats were then constructed. For radiation dose reduction, the following was used: automated exposure control, adjustment of mA and/or kV according to patient size. COMPARISON: [facility], CT, CT CERVICAL SPINE WO CON, 07/28/2023, 16:11. FINDINGS: Image quality: Excellent. Bones: Acute transverse fracture through mid to inferior body of C5 vertebral body is seen with up to 3.5 mm diastasis at the fracture site anterior. Degenerative endplate changes, loss of disc height and bilateral facet arthrosis throughout cervical spine. Visualized superior ribs are intact. Soft tissues: Prevertebral soft tissues are normal in thickness. No paravertebral hematomas. No apical pneumothoraces. IMPRESSION: 1. Acute transverse fracture through mid to inferior portion of C5 vertebral body. 2. Degenerative disc disease throughout cervical spine. No discrepancies from preliminary reading. Dictated by: Jonathan Sotelo M.D. on 08/19/2023 at 8:16 Approved by: Jonathan Sotelo M.D. on 08/19/2023 at 8:18
--- NOTE | 2023-08-19 05:24 | DI.CT.S_ITS ---
PROCEDURE: CT HEAD/BRAIN WO CON INDICATIONS: fall TECHNIQUE: Noncontrast 4.5 mm thick angled axial sections acquired from the foramen magnum to the vertex, with coronal and sagittal reformats. For radiation dose reduction, the following was used: automated exposure control, adjustment of mA and/or kV according to patient size. COMPARISON: [facility], CT, CT HEAD/BRAIN WO CON, 07/28/2023, 16:11. FINDINGS: Image quality: Excellent. CSF spaces: Basal cisterns are patent. No extra-axial fluid collections. The ventricles are symmetric in size and shape. Brain: No intracranial bleeds or masses. Old infarction involving right MCA territory is seen with encephalomalacia and gliosis. There is cerebral volume loss for age, with resultant ventricular and sulcal prominence. There are periventricular and deep white matter chronic small vessel ischemic changes. There is intracranial internal carotid artery atherosclerosis. Skull and face: Calvarium and visualized facial bones appear intact, without suspicious lesions. Sinuses: Visualized sinuses and mastoids are clear. IMPRESSION: No acute intracranial abnormalities. No significant changes from previous study. No discrepancies. Dictated by: Jonathan Sotelo M.D. on 08/19/2023 at 8:15 Approved by: Jonathan Sotelo M.D. on 08/19/2023 at 8:16
--- NOTE | 2023-08-19 05:26 | ED.GENADULT ---
HPI - General Adult <Hever Keith DO - Last Filed: 08/19/23 17:54> General Chief complaint: Fall Stated complaint: GLF Time Seen by Provider: 08/19/23 05:19 Source: patient and EMS Mode of arrival: EMS Limitations: no limitations History of Present Illness HPI narrative: Patient is 72-year-old male. Brought in by EMS for evaluation of injuries that he sustained when he fell getting up out of his chair overnight. Per EMS the patient has been smoking marijuana and drinking alcohol. The patient states that ?I am not drunk? but also admits ?I have been drinking? somewhat difficult to obtain an exact HPI although the patient states it his left shoulder hurts in his lower back hurts in his neck hurts. The patient did arrive in a cervical collar. He stated that he just lost his balance getting up out of his chair. He did not think that he hit his head. No loss of consciousness. He was reported by EMS that his shoulder, back and neck pain are chronic for him although the patient states that it is from the fall. Was rather quickly asking for pain medication upon arrival. Does use a walker at baseline secondary to residual deficits from a prior stroke. The evaluation by EMS that resulted in him being transported to the emergency department was actually the 2nd time EMS was called to his house. The fall that caused the neck and shoulder and lower back pain actually occurred several hours prior to the call that resulted in him coming to the ER. EMS did come out to his house at the time of the fall however he was not transported at that particular time. Related Data Home Medications Medication Instructions Recorded Confirmed atorvastatin 80 mg tablet 80 mg PO DAILY 03/16/21 08/14/23 lisinopril 5 mg tablet 5 mg PO DAILY 03/16/21 08/14/23 metformin 1,000 mg tablet 1,000 mg PO BID 03/16/21 08/14/23 metoprolol succinate 100 mg 100 mg PO DAILY 03/16/21 08/14/23 tablet,extended release 24 hr pantoprazole 40 mg tablet,delayed 40 mg PO DAILY 03/16/21 08/14/23 release trazodone 50 mg tablet 25 mg PO BEDTIME PRN 08/08/23 08/14/23 glipizide 10 mg PO DAILY 08/14/23 08/14/23 Previous Rx's Medication Instructions Recorded furosemide 20 mg tablet 20 mg PO DAILY #10 tabs 08/09/23 albuterol sulfate 90 mcg/actuation 2 puff inhalation Q4-6H PRN 08/14/23 aerosol inhaler shortness of breath or wheezing #6.7 grams finasteride 5 mg tablet 5 mg PO DAILY #30 tabs 08/14/23 fluoxetine 20 mg capsule 20 mg PO DAILY #30 caps 08/14/23 Allergies Allergy/AdvReac Type Severity Reaction Status Date / Time No Known Drug Allergies Allergy Verified 08/14/23 13:04 Review of Systems <Hever Keith DO - Last Filed: 08/19/23 17:54> Constitutional Constitutional: Reports system reviewed and no additional complaints, except as documented Cardiovascular Comments: Denies chest pain Respiratory Comments: Denies shortness of breath Gastrointestinal Comments: Denies abdominal pain Musculoskeletal Musculoskeletal: Reports system reviewed and no additional complaints, except as documented Integumentary/Breasts Skin/Breast: Reports system reviewed and no additional complaints, except as documented Neurologic Neurologic: Reports system reviewed and no additional complaints, except as documented Patient History <Hever Keith DO - Last Filed: 08/19/23 17:54> Medical History Urinary retention (~01/06/20) Congestive heart failure (~01/06/20) High cholesterol Carotid artery stenosis (~01/06/20) Vision disorder Hearing loss Psoriasis (~04/20/09) Asthma Allergies Depression Stroke (~01/06/20) Ankle pain GERD (gastroesophageal reflux disease) (~10/01/10) HLD (hyperlipidemia) HTN (hypertension) (~01/06/20) COPD (chronic obstructive pulmonary disease) Abscess of buttock (~04/19/21) History of stroke (11/2019) History of atrial fibrillation (~2019) Type 2 diabetes mellitus (~2009) Surgical History (Updated 06/13/23 @ 21:23 by Dana Lyle) Anesthesia Fistula History of hernia repair Status post placement of implantable loop recorder Family History (Updated 06/13/23 @ 21:24 by Dana Lyle) Mother Cancer Father Myocardial infarction Black lung disease Brother Diabetes mellitus Social History household members: none Smoking Status: Former smoker alcohol intake: former Smoking Status: Former smoker alcohol intake frequency: 0-2 drinks per day Substance Use Type: does not use Exam <Hever Keith DO - Last Filed: 08/19/23 17:54> Initial Vital Signs Initial Vital Signs: Vital Signs Blood Pressure 212/110 H 08/19/23 05:23 HENMT Head: normal to inspection and normocephalic Resp Effort & Inspection: normal respiratory effort Auscultation: clear to auscultation bilaterally Cardio Rate: regular rate GI Inspection: normal to inspection and non-distended Back/Spine/Pelvis Other: In cervical collar. Discomfort to lumbar spine Skin Other: Findings consistent with psoriasis. 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 No sensory deficits noted in bilateral upper extremities. Extrem Other: Full range motion left shoulder but has discomfort with movement. <Cheryl Bray DO - Last Filed: 08/19/23 17:22> Initial Vital Signs Initial Vital Signs: Vital Signs Blood Pressure 212/110 H 08/19/23 05:23 Scores <Hever Keith DO - Last Filed: 08/19/23 17:54> GCS Charity coma scale eye opening: Spontaneous Charity coma scale verbal response: Orientated Bowlus coma scale motor response: Obey commands Bowlus coma scale total score: 15 <Cheryl Bray DO - Last Filed: 08/19/23 17:22> GCS Bowlus coma scale total score: 15 Course <Hever Keith DO - Last Filed: 08/19/23 17:54> Orders Ordered: ED Orders 08/19/23 09:48 UA Complete [Urinalysis and Microscopic] Stat Discontinued Medications Hydromorphone HCl (Hydromorphone 1 Mg Inj) 1 mg IV NOW ONE Stop: 08/19/23 06:22 Last Admin: 08/19/23 06:58 Dose: 1 mg Documented By: FORREST Hydromorphone HCl (Hydromorphone 1 Mg Inj) 1 mg IV NOW ONE Stop: 08/19/23 08:13 Last Admin: 08/19/23 08:17 Dose: 1 mg Documented By: RB Hydromorphone HCl (Hydromorphone 1 Mg Inj) 1 mg IV NOW ONE Stop: 08/19/23 09:16 Last Admin: 08/19/23 09:21 Dose: 1 mg Documented By: DARBY Sodium Chloride (Normal Saline 0.9%) 1,000 mls @ 500 mls/hr IV BOLUS ONE Stop: 08/19/23 09:53 Last Infusion: 08/19/23 09:56 Dose: Infused Documented By: Admin: 08/19/23 08:15 Dose: 500 mls/hr Documented By: EKATERINA Ketorolac Tromethamine (Ketorolac 30 Mg/Ml Vial) 30 mg IM NOW ONE Stop: 08/19/23 05:25 Last Admin: 08/19/23 06:05 Dose: 30 mg Documented By: FORREST Lorazepam (Lorazepam 2 Mg/Ml Inj) 1 mg IV NOW ONE Stop: 08/19/23 06:30 Last Admin: 08/19/23 06:38 Dose: 1 mg Documented By: FORREST Phenobarbital (Phenobarbital 65 Mg/Ml Vial) 260 mg IV NOW ONE Stop: 08/19/23 07:55 Last Admin: 08/19/23 08:15 Dose: 260 mg Documented By: EKATERINA Vital Signs Vital signs: Vital Signs - 8 hr 08/19/23 09:56 Temperature 98.3 F <Cheryl Bray, DO - Last Filed: 08/19/23 17:22> Orders Ordered: ED Orders 08/19/23 09:48 UA Complete [Urinalysis and Microscopic] Stat Discontinued Medications Hydromorphone HCl (Hydromorphone 1 Mg Inj) 1 mg IV NOW ONE Stop: 08/19/23 06:22 Last Admin: 08/19/23 06:58 Dose: 1 mg Documented By: FORREST Hydromorphone HCl (Hydromorphone 1 Mg Inj) 1 mg IV NOW ONE Stop: 08/19/23 08:13 Last Admin: 08/19/23 08:17 Dose: 1 mg Documented By: EKATERINA Hydromorphone HCl (Hydromorphone 1 Mg Inj) 1 mg IV NOW ONE Stop: 08/19/23 09:16 Last Admin: 08/19/23 09:21 Dose: 1 mg Documented By: DARBY Sodium Chloride (Normal Saline 0.9%) 1,000 mls @ 500 mls/hr IV BOLUS ONE Stop: 08/19/23 09:53 Last Infusion: 08/19/23 09:56 Dose: Infused Documented By: Admin: 08/19/23 08:15 Dose: 500 mls/hr Documented By: RB Ketorolac Tromethamine (Ketorolac 30 Mg/Ml Vial) 30 mg IM NOW ONE Stop: 08/19/23 05:25 Last Admin: 08/19/23 06:05 Dose: 30 mg Documented By: FORREST Lorazepam (Lorazepam 2 Mg/Ml Inj) 1 mg IV NOW ONE Stop: 08/19/23 06:30 Last Admin: 08/19/23 06:38 Dose: 1 mg Documented By: FORREST Phenobarbital (Phenobarbital 65 Mg/Ml Vial) 260 mg IV NOW ONE Stop: 08/19/23 07:55 Last Admin: 08/19/23 08:15 Dose: 260 mg Documented By: RB Vital Signs Vital signs: Vital Signs - 8 hr 08/19/23 09:56 Temperature 98.3 F Medical Decision Making <Hever Keith DO - Last Filed: 08/19/23 17:54> Lab Data 08/19/23 06:42 08/19/23 06:42 Labs: Lab Results 08/19/23 08/19/23 08/19/23 Range/Units 06:38 06:40 06:42 WBC 18.3 H (4.5-11.0) X10^3/uL RBC 4.63 (4.5-5.9) X10^6/uL Hgb 13.3 L (13.5-17.5) g/dL Hct 40.4 L (41-53) % MCV 87.2 (80-100) fL MCH 28.7 (26-34) PG MCHC 32.9 (30-36) % RDW 16.6 H (11.6-14.8) % Plt Count 425 H (150-400) X10^3/uL Neut % (Auto) 91.3 H (50-75) % Lymph % (Auto) 3.1 L (25-40) % [place] % (Auto) 5.1 (3-14) % Eos % (Auto) 0.1 L (2-4) % Baso % (Auto) 0.4 (0-2) % Neut # (Auto) 17217 H (5439-2258) /uL Lymph # (Auto) 600 L (7889-7752) /uL [place] # (Auto) 900 (0-900) /uL Eos # (Auto) 0 (0-450) /uL Baso # (Auto) 100 (0-100) /uL PT 11.3 (9.4-12.5) SECONDS INR 1.0 (0.9-1.3) APTT 30 (25.1-36.5) SECONDS Sodium 130 L (137-145) mmol/L Potassium 3.7 (3.4-5.1) mmol/L Chloride 94 L (98-107) mmol/L Carbon Dioxide 19 L (22-32) mmol/L BUN 6 L (9-20) mg/dL Creatinine 0.66 (0.66-1.25) mg/dL Estimated GFR > 60 (>60) mL/min BUN/Creatinine Ratio 9.1 (6-22) Glucose 218 H (80-110) mg/dL Calcium 9.3 (8.4-10.2) mg/dL Total Bilirubin 0.9 (0.2-1.3) mg/dL AST 53 (17-59) IU/L ALT 34 (<50) IU/L Alkaline Phosphatase 157 H (38-126) U/L Total Protein 8.3 H (6.3-8.2) g/dL Albumin 4.7 (3.5-5.0) g/dL Globulin 3.6 (1.7-4.1) g/dL Albumin/Globulin Ratio 1.3 (1.0-2.8) Lipase 85 (23-300) U/L Urine Color Yellow Urine Appearance Clear Urine pH 6.0 (4.5-8.0) Ur Specific [place] 1.010 (1.000-1.035) Urine Protein 1+ H (Negative) Urine Glucose (UA) 2+ H (Negative) g/dL Urine Ketones 1+ H (NEGATIVE) Urine Occult Blood 2+ H (Negative) Urine Nitrate Negative (Negative) Urine Bilirubin Negative (NEGATIVE) Urine Urobilinogen 0.2 (0.2) E.U./dL Ur Leukocyte Esterase Negative (NEGATIVE) Urine RBC 0-1/hpf (0-5/HPF) Urine WBC None seen (0-5/HPF) Ur Squamous Epith Cells None seen (0-5/HPF) Urine Bacteria None seen (None) Ur Culture Indicated? Cult not indicated U Opiates 300ng/mL cut Negative (Negative) Ur Oxycodone Screen Negative (Negative) Urine Methadone Screen Negative (Negative) Ur Barbiturates Screen Negative (Negative) U Tricyclic Antidepress Negative (Negative) Ur Phencyclidine Scrn Negative (Negative) Ur Amphetamines Screen Negative (Negative) U Methamphetamines Scrn Negative (Negative) Ur MDMA Scrn (Ecstasy) Negative (Negative) U Benzodiazepines Scrn Negative (Negative) Urine Cocaine Screen Negative (Negative) U Marijuana (THC) Screen Positive H (Negative) Ethyl Alcohol 113 H ( - 10) mg/dL SARS-CoV-2 (PCR) Negative (Negative) Imaging Data Lumbar spine x-ray: Radiologist's Impression: PROCEDURE: XR CHEST 2V INDICATIONS: cough and SOB TECHNIQUE: 2 views of the chest were acquired. COMPARISON: None. FINDINGS: Surgical changes and devices: None. Lungs and pleura: Lungs are clear. No pleural effusions or pneumothorax. Mediastinum: Mediastinal contours are normal. Heart size is normal. Bones and chest wall: No suspicious bony abnormalities. Soft tissues appear unremarkable. IMPRESSION: No acute pulmonary process. Extremity x-ray #1: Radiologist's Impression: No acute findings of left shoulder x-ray CT scan - head: Radiologist's Impression: No acute intracranial findings CT - cervical spine: Radiologist's Impression: Transversely oriented nondisplaced fracture cleft seen extending through the mid C5 vertebral body MDM Narrative Medical decision making narrative: Patient is moving all 4 extremities. Has 5/5 strength bilateral upper extremities. No sensory deficits. Shoulder x-ray and lumbar spine x-ray showed no acute pathology. Head CT shows no acute pathology. He has had a prior stroke. He does have a C5 vertebral body fracture on the CT scan of his neck. Patient has multiple medical problems to include heart failure and atrial fibrillation and diabetes and high blood pressure.. He is prescribed anticoagulation but states he has not taken it for several weeks. He still is taking the rest of his medications as directed. Care turned over to Dr. Jameson the change of shift to follow-up consult with spine surgery and discuss disposition. <Cheryl Bray, - Last Filed: 08/19/23 17:22> Lab Data Labs: Lab Results 08/19/23 08/19/23 08/19/23 Range/Units 06:38 06:40 06:42 WBC 18.3 H (4.5-11.0) X10^3/uL RBC 4.63 (4.5-5.9) X10^6/uL Hgb 13.3 L (13.5-17.5) g/dL Hct 40.4 L (41-53) % MCV 87.2 (80-100) fL MCH 28.7 (26-34) PG MCHC 32.9 (30-36) % RDW 16.6 H (11.6-14.8) % Plt Count 425 H (150-400) X10^3/uL Neut % (Auto) 91.3 H (50-75) % Lymph % (Auto) 3.1 L (25-40) % [place] % (Auto) 5.1 (3-14) % Eos % (Auto) 0.1 L (2-4) % Baso % (Auto) 0.4 (0-2) % Neut # (Auto) 54696 H (7536-1478) /uL Lymph # (Auto) 600 L (6062-4219) /uL [place] # (Auto) 900 (0-900) /uL Eos # (Auto) 0 (0-450) /uL Baso # (Auto) 100 (0-100) /uL PT 11.3 (9.4-12.5) SECONDS INR 1.0 (0.9-1.3) APTT 30 (25.1-36.5) SECONDS Sodium 130 L (137-145) mmol/L Potassium 3.7 (3.4-5.1) mmol/L Chloride 94 L (98-107) mmol/L Carbon Dioxide 19 L (22-32) mmol/L BUN 6 L (9-20) mg/dL Creatinine 0.66 (0.66-1.25) mg/dL Estimated GFR > 60 (>60) mL/min BUN/Creatinine Ratio 9.1 (6-22) Glucose 218 H (80-110) mg/dL Calcium 9.3 (8.4-10.2) mg/dL Total Bilirubin 0.9 (0.2-1.3) mg/dL AST 53 (17-59) IU/L ALT 34 (<50) IU/L Alkaline Phosphatase 157 H (38-126) U/L Total Protein 8.3 H (6.3-8.2) g/dL Albumin 4.7 (3.5-5.0) g/dL Globulin 3.6 (1.7-4.1) g/dL Albumin/Globulin Ratio 1.3 (1.0-2.8) Lipase 85 (23-300) U/L Urine Color Yellow Urine Appearance Clear Urine pH 6.0 (4.5-8.0) Ur Specific [place] 1.010 (1.000-1.035) Urine Protein 1+ H (Negative) Urine Glucose (UA) 2+ H (Negative) g/dL Urine Ketones 1+ H (NEGATIVE) Urine Occult Blood 2+ H (Negative) Urine Nitrate Negative (Negative) Urine Bilirubin Negative (NEGATIVE) Urine Urobilinogen 0.2 (0.2) E.U./dL Ur Leukocyte Esterase Negative (NEGATIVE) Urine RBC 0-1/hpf (0-5/HPF) Urine WBC None seen (0-5/HPF) Ur Squamous Epith Cells None seen (0-5/HPF) Urine Bacteria None seen (None) Ur Culture Indicated? Cult not indicated U Opiates 300ng/mL cut Negative (Negative) Ur Oxycodone Screen Negative (Negative) Urine Methadone Screen Negative (Negative) Ur Barbiturates Screen Negative (Negative) U Tricyclic Antidepress Negative (Negative) Ur Phencyclidine Scrn Negative (Negative) Ur Amphetamines Screen Negative (Negative) U Methamphetamines Scrn Negative (Negative) Ur MDMA Scrn (Ecstasy) Negative (Negative) U Benzodiazepines Scrn Negative (Negative) Urine Cocaine Screen Negative (Negative) U Marijuana (THC) Screen Positive H (Negative) Ethyl Alcohol 113 H ( - 10) mg/dL SARS-CoV-2 (PCR) Negative (Negative) ECG Data Attestation: I personally reviewed and interpreted this ECG as follows: Prior ECG tracings: available for review Interpretation: Sinus tachycardia frequent PVC rate of 115 AK of 146 QRS of 146, QTC 100 right bundle-branch. Patient does not appear to have some new depression in V4 5 6. No elevation. Patient has prior from 06/21/2023 which does show right bundle-branch block MDM Narrative Medical decision making narrative: Patient is moving all 4 extremities. Has 5/5 strength bilateral upper extremities. No sensory deficits. Shoulder x-ray and lumbar spine x-ray showed no acute pathology. Head CT shows no acute pathology. He has had a prior stroke. He does have a C5 vertebral body fracture on the CT scan of his neck. Patient has multiple medical problems to include heart failure and atrial fibrillation and diabetes and high blood pressure.. He is prescribed anticoagulation but states he has not taken it for several weeks. He still is taking the rest of his medications as directed. Care turned over to Dr. Bray the change of shift to follow-up consult with spine surgery and discuss disposition. 08/19/23 [place]: 72-year-old male with history of anticoagulation but has not taken it in 1-2 weeks he states his prescription ran out. History of stroke, atrial fibrillation CHF, chronic alcohol use who had a fall or event last night around 2:00 a.m. was seen by EMS and did not transfer to the ED at that time. Was heard yelling by neighbor secondary to pain they then transported patient here. Patient complains of pain in his shoulder back. Patient initially seen by Dr. Keith. Signed out to myself. Patient does not have head bleed but does have obvious cervical spine fracture which is new compared to prior from 07/28/[address] scan. Also has encephalomalacia and gliosis right posterior temporal occipital lobe and right frontal parietal lobes related to prior infarcts. Patient has known prior strokes. Shoulder x-ray and L-spine x-ray had also been obtained results are negative. Patient shows leukocytosis of 18, hemoglobin is 13 platelets of 425, sodium 130, was 131 at the beginning of July, potassium of 3 7 chloride 94 CO2 of 19 BUN 6 with creatinine of 0.66 glucose of 218, patient is known diabetic normal LFTs except for alk-phos of 157 and total protein of 8.3. ETOH is 110, positive for marijuana UDS otherwise negative. COVID swab is negative. Patient seen evaluated by myself independently, denies any incontinence but has been changed several times by nursing and has a condom cath in place now. He also is noted to have a laceration to his tongue. No reported seizure history patient was intoxicated at the time. He has full range of motion about extremity states he has some chronic neuropathy but no new paresthesias. Normal speech, he understands his current injuries. He is most comfortable with [place] collar in place but had slightly elevated with towel. He is much more uncomfortable lying fully flat. Patient does not have any other bony tenderness on exam. Patient does have tachycardia, EKG was ordered. Patient initially had received some Toradol, had additional 1 mg of lorazepam and hydromorphone here in the department. Patient does still feel shaky slightly tachycardic has been hypertensive. Patient states he does drink regularly last drink was last night before his fall around 2:00 a.m. we will give dose of phenobarbital, 500 cc/hour bolus and reassess. EKG shows right bundle-branch, sinus tach, some depression lateral leads patient states no chest pain or pressure. No shortness of breath. [facility] has been contacted, Dr. Keith spoke with the economic development coordinator but awaiting call back for transfer. Recontacted [facility], states neurosurgery will callback. Would not page out ED physician. Spoke with Dr. Murcia, neurosurgery accepts for transfer. Spoke with ED Trauma attending Dr. Yo accepting physician for transfer to [facility] ED. Patient updated of impending transfer. He is agreeable, pulses improved somewhat after fluids and phenobarbital, 80s, so 107-100 range. Patient appears much more comfortable. Critical Care Time <Hever Keith, - Last Filed: 08/19/23 17:54> Critical Care Time Attestation: The high probability of a clinically significant, sudden or life threatening deterioration of the [cardiac, neuro] system(s) required my full and direct attention, intervention and personal management. The aggregate critical care time was [35] minutes. This time is in addition to time spent performing reported procedures but includes the following: [x] Data Review and interpretation [x] Patient assessment and monitoring of vital signs [x] Documentation [x] Medication orders and management <Cheryl Bray, DO - Last Filed: 08/19/23 17:22> Critical Care Time Critical Care Time: Yes Total Critical Care Time: 35 Attestation: The high probability of a clinically significant, sudden or life threatening deterioration of the [cardiac, neuro] system(s) required my full and direct attention, intervention and personal management. The aggregate critical care time was [] minutes. This time is in addition to time spent performing reported procedures but includes the following: [x] Data Review and interpretation [x] Patient assessment and monitoring of vital signs [x] Documentation [x] Medication orders and management Discharge Plan Departure Patient Disposition: [facility] Clinical Impression: C5 vertebral fracture Prescriptions: No Action glipizide 10 mg PO DAILY fluoxetine 20 mg capsule 20 mg PO DAILY Qty: 30 0RF albuterol sulfate 90 mcg/actuation HFA aerosol inhaler 2 puff inhalation Q4-6H PRN (Reason: shortness of breath or wheezing) Qty: 6.7 0RF finasteride 5 mg tablet 5 mg PO DAILY Qty: 30 0RF trazodone 50 mg tablet 25 mg PO BEDTIME PRN furosemide 20 mg tablet 20 mg PO DAILY Qty: 10 0RF Rx Instructions: Take one tablet once daily for 7 days atorvastatin 80 mg tablet 80 mg PO DAILY metoprolol succinate 100 mg tablet extended release 24 hr 100 mg PO DAILY pantoprazole 40 mg tablet,delayed release (DR/EC) 40 mg PO DAILY metformin 1,000 mg tablet 1,000 mg PO BID lisinopril 5 mg tablet 5 mg PO DAILY Referrals: Dori Tyson DO [Primary Care Provider] -
[2023-08-19] MEDS: KETOROLAC 30 MG/ML VIAL IM (06:05)
--- NOTE | 2023-08-19 06:30 | PC.NURSE ---
Patient continues to not follow direction. Patient keeps moving around despite frequent reminding to not move due to cervical fracture. Patient placed in aspen c-collar with the assistance of SOPHIA Downey maintaining cervical alignment. Patient states do you think I have a drinking problem. Patient admits to drinking coors light everyday while he watches tv. Patient states remembering that he fell getting out of his chair yesterday.
[2023-08-19] MEDS: LORazepam 2 MG/ML INJ 1 MG IV (06:38)
[2023-08-19 06:45] LABS: Add Manual Diff / Slide Review NO; Basophils Absolute Auto 100 /uL (0-100); Basophils Percent Auto 0.4 % (0-2); Eosinophils Absolute Auto 0 /uL (0-450); Eosinophils Percent Auto 0.1 % (2-4); Hematocrit 40.4 % (41-53); Hemoglobin 13.3 g/dL (13.5-17.5); Lymphocytes Absolute Auto 600 /uL (1100-4500); Lymphocytes Percent Auto 3.1 % (25-40); Mean Corpuscular HGB Conc 32.9 % (30-36); Mean Corpuscular Hemoglobin 28.7 PG (26-34); Mean Corpuscular Volume 87.2 fL (80-100); Monocytes Absolute Auto 900 /uL (0-900); Monocytes Percent Auto 5.1 % (3-14); Neutrophils Absolute Auto 16700 /uL (1500-7000); Neutrophils Percent Auto 91.3 % (50-75); Platelet Count 425 X10^3/uL (150-400); Red Blood Cell Count 4.63 X10^6/uL (4.5-5.9); Red Cell Distribution Width 16.6 % (11.6-14.8); White Blood Cell Count 18.3 X10^3/uL (4.5-11.0)
[2023-08-19 06:52] LABS: UR Morphine/Opiate cutoff 300 Negative (Negative); Ur Creatinine Normal (Normal); Ur Specific Gravity Normal (Normal); Urine Amphetamines Negative (Negative); Urine Barbiturates Negative (Negative); Urine Benzodiazepines Negative (Negative); Urine Cocaine Negative (Negative); Urine MDMA Negative (Negative); Urine Methadone Negative (Negative); Urine Methamphetamines Negative (Negative); Urine Oxycodone Negative (Negative); Urine Phencyclidine Negative (Negative); Urine Tetrahydrocannabinol Positive (Negative); Urine Tricyclic Antidepressant Negative (Negative); Urine pH Normal (Normal)
[2023-08-19] MEDS: HYDROMORPHONE 1 MG INJ IV ×3 (06:58→09:21)
[2023-08-19 06:59] LABS: Alanine Aminotransferase 34 IU/L (<50); Albumin 4.7 g/dL (3.5-5.0); Albumin Globulin Ratio 1.3 (1.0-2.8); Alkaline Phosphatase 157 U/L (38-126); Aspartate Aminotransferase 53 IU/L (17-59); BUN Creatinine Ratio 9.1 (6-22); Bilirubin Total 0.9 mg/dL (0.2-1.3); Blood Urea Nitrogen 6 mg/dL (9-20); Calcium 9.3 mg/dL (8.4-10.2); Carbon Dioxide 19 mmol/L (22-32); Chloride 94 mmol/L (98-107); Estimated Glomerular Filt Rate > 60 mL/min (>60); Ethanol (ETOH) 113 mg/dL; Globulin 3.6 g/dL (1.7-4.1); Glucose 218 mg/dL (80-110); HEMOLYSIS < 15 (0-50); Lipase 85 U/L (23-300); Potassium 3.7 mmol/L (3.4-5.1); Sodium 130 mmol/L (137-145); Total Protein 8.3 g/dL (6.3-8.2)
[2023-08-19 07:03] LABS: COVID19 -Nasal RAPID Negative (Negative)
--- NOTE | 2023-08-19 07:25 | PC.NURSE ---
Arrived to pt room for bedside report. Pt resting in [place] collar lying flat on stretcher. AAOx3 and forgetful. Dr Bray at bedside as well. Assist x 5 to log roll pt to provide care. Medicated for pain. Pt has intact sensation x all 4 extremities. Breathing easy and unlabored. Condom cath applied. Awaiting call back from [facility] for transfer.
[2023-08-19 07:34] LABS: Prothrombin Time 11.3 SECONDS (9.4-12.5)
[2023-08-19 07:36] LABS: PTT Partial Thromboplastin Tim 30 SECONDS (25.1-36.5)
[2023-08-19] MEDS: PHENobarbital 65 MG/ML VIAL 260 MG IV (08:15)
[2023-08-19] MEDS: SODIUM CHLORIDE 0.9% 1,000 ML 500 ML IV (08:15)
[2023-08-19 09:13] LABS: Appearance Urine UA CLEAR; Bilirubin Urine UA NEGATIVE (NEGATIVE); Color Urine UA YELLOW; Glucose Urine UA 2+ g/dL (Negative); Ketones Urine UA 1+ (NEGATIVE); Leukocyte Esterase Urine UA NEGATIVE (NEGATIVE); Nitrite Urine UA NEGATIVE (Negative); Occult Blood Urine UA 2+ (Negative); Protein Urine UA 1+ (Negative); Urobilinogen Urine UA 0.2 E.U./dL (0.2)
[2023-08-19 09:22] LABS: Bacteria Urine None Seen; Culture Indicated Urine Cult Not Indicated; RBC Urine 0-1/HPF (0-5/HPF); Squamous Epithelial Cell Urine None Seen (0-5/HPF); WBC Urine None Seen (0-5/HPF)
== END 2023-08-19 09:58 | disposition short-term general hospital (02) ==
PROVIDERS: Emergency Medicine; Emergency Provider Emergency Medicine; Family Provider Family Medicine; PCP Family Medicine
DX: S12.400A Unspecified displaced fracture of fifth cervical vertebra, initial encounter for closed fracture (principal); W18.30XA Fall on same level, unspecified, initial encounter; Y92.009 Unspecified place in unspecified non-institutional (private) residence as the place of occurrence of the external cause; S01.512A Laceration without foreign body of oral cavity, initial encounter; I48.91 Unspecified atrial fibrillation; E11.9 Type 2 diabetes mellitus without complications; I11.0 Hypertensive heart disease with heart failure; I50.9 Heart failure, unspecified; I69.398 Other sequelae of cerebral infarction; Z79.84 Long term (current) use of oral hypoglycemic drugs; Z91.148 Patient's other noncompliance with medication regimen for other reason
CPT/HCPCS: 36415; 70450; 72100; 72125; 73030; 80053; 80305; 80320; 81001; 83690; 85025; 85610; 85730; 87635; 93005; 93010; 96361; 96372; 96374; 96375; 96376; 99284; C9803; J1170; J1885; J2060; J2560